=== PATIENT | female | born 1955 | race Caucasian/White ===

== ENCOUNTER 2020-05-12 11:01 | Outpatient (REF) | payer BC, SELFPAY ==
--- NOTE | ~2020-05-12 | MM_ITS ---
EXAMINATION: MM SCREENING DIGITAL BREAST TOMOSYNTHESIS, BILATERAL CLINICAL INFORMATION: Screening. Asymptomatic. The lifetime risk of breast cancer based on the Tyrer-Cuzick Model is 10%. COMPARISON: Mammography: 01/06/2019, 12/10/2018, 08/26/2014 TECHNIQUE: Digital breast tomosynthesis is performed in both the craniocaudal and mediolateral oblique views along with computer-aided detection (CAD). Synthesized 2D images are generated from the tomosynthesis. FINDINGS: There are scattered areas of fibroglandular density (ACR BI-RADS breast composition Category b). There are no significant masses, abnormal calcifications, or other abnormalities. Parenchymal pattern is similar to prior studies. The skin contours are smooth. No significant changes. MM/MM tomosynthesis screening BI IMPRESSION: No mammographic evidence of malignancy. ASSESSMENT: BI-RADS 1: Negative RECOMMENDATION: Routine annual mammography screening. This patient's information was entered into a reminder system with a target due date for their next mammogram.
== END 2020-05-12 11:02 | disposition home or self-care (01) ==
LOC: HO.MAMMO 11:01
PROVIDERS: Visit Provider Family Medicine
DX: Z12.31 Encounter for screening mammogram for malignant neoplasm of breast (principal)
CPT/HCPCS: 77063; 77067

== ENCOUNTER → 2020-07-29 12:28 | Outpatient (BNVA) | payer BC, SELFPAY | PROVIDERS: PCP Family Medicine; Visit Provider Physician Assistant ==

== ENCOUNTER 2020-08-25 09:01 | Outpatient (REF) | payer BC, SELFPAY ==
--- NOTE | ~2020-08-25 | US_ITS ---
EXAMINATION: US COMPLETE ABDOMEN WITH LIVER ELASTOGRAPHY CLINICAL INFORMATION: Pain COMPARISON: None. TECHNIQUE: Real-time imaging of the abdominal viscera. Noninvasive ultrasound liver fibrosis assessment is performed using Davion ElastPQ point quantification shear wave elastography (pSWE) with a C5-2 MHz transducer. Multiple elastography samples are obtained. FINDINGS: PANCREAS: Normal. . ABDOMINAL AORTA: The proximal, middle, and distal aortic segments are normal in caliber. INFERIOR VENA CAVA: Visualized portions are normal. LIVER: Normal. The liver demonstrates normal size, contour and echogenicity. No focal lesion or intrahepatic biliary duct dilatation. The right lobe measures 15 cm in length. The left lobe measures 11 cm in length. Portal flow is normal/hepatopedal Shear wave liver elastography median stiffness is 1.2 m/s (reference: normal median stiffness is 1.3 m/s or less). IQR/median stiffness to assess sampling precision is 0.15 (reference: good quality data set is IQR/median stiffness of 0.15 or less). GALLBLADDER: Normal. The gallbladder is physiologically distended without evidence of stones, sludge, polyps, wall thickening or pericholecystic fluid. COMMON BILE DUCT: Normal in caliber measuring 0.4 cm in diameter. RIGHT KIDNEY: Normal. No hydronephrosis. No renal calculi or focal parenchymal lesions. The kidney measures 9.5 cm in maximum dimension. LEFT KIDNEY: Normal. No hydronephrosis. No renal calculi or focal parenchymal lesions. The kidney measures 9.6 cm in maximum dimension. SPLEEN: Normal. The spleen measures 7.7 cm in maximum dimension. FREE FLUID: None. US/US abdomen comp w elastography IMPRESSION: 1. Impression: Unremarkable exam. 2. Liver elastography: Normal liver stiffness. No evidence of advanced chronic liver disease. REFERENCE: Society of Radiologists in Ultrasound Liver Stiffness Thresholds (2020): LIVER STIFFNESS THRESHOLDS: *Liver Stiffness equal or less than 1.3 m/s: High probability of being normal. *Liver Stiffness less than 1.7 m/s: In the absence of other known clinical signs, rules out compensated advanced chronic liver disease. *Liver Stiffness 1.7-2.1 m/s: Suggestive of compensated advanced chronic liver disease but need further test for confirmation. *Liver Stiffness over 2.1 m/s: Rules in compensated advanced chronic liver disease. *Liver Stiffness over 2.4 m/s: Suggestive of clinically significant portal hypertension. QUALITY OF DATA SET: *IQR/Median value equal or less than 0.15 implies a quality data set. *IQR/Median value over 0.15 implies a poor quality data set. SIGNIFICANT CHANGE FROM PRIOR EXAM: Significant change if liver stiffness measurement is 10% or greater from prior exam. OTHER CONSIDERATIONS: The stage of liver fibrosis may be overestimated in the setting of acute hepatitis, liver inflammation, elevated liver function tests, hepatic vascular congestion, obstructive cholestasis, non-fasting state, and infiltrative diseases such as amyloidosis and lymphoma. In some patients with NAFLD, the liver stiffness thresholds for compensated advanced chronic liver disease may be lower. In causes other than viral hepatitis and NAFLD, liver stiffness thresholds are not well established.
== END 2020-08-25 09:02 | disposition home or self-care (01) ==
LOC: HO.US 09:01
PROVIDERS: PCP Family Medicine; Visit Provider Physician Assistant
DX: R10.9 Unspecified abdominal pain (principal)
CPT/HCPCS: 76705; 76981

== ENCOUNTER 2020-10-29 08:33 | Day surgery (SDC) | payer BC, SELFPAY ==
[2020-10-25 11:20] VITALS: BMI 25.2
--- NOTE | 2020-10-28 10:20 | P.CONAN_ITS ---
Documented by User: Sarah Montiel NP 10/28/20 10:20 HPI - Anesthesia Eval Consult details Narrative: 65yo F for Colonoscopy PMFSH Active Problems Active Problems: All Active Problems (Updated 10/27/20 @ 09:23 by Elly Meeks, GIO) Essential hypertension (Acute) Immunization counseling (Acute) History of colon polyps (Acute) Rectal bleeding (Acute) Abdominal pain (Acute) Left foot pain (Acute) Lower extremity weakness (Acute) Past Medical History Medical History (Updated 10/29/20 @ 09:12 by Kerrie Lim MD) Anxiety and depression COPD (chronic obstructive pulmonary disease) H/O heartburn HTN (hypertension) Hx of thyroid disease Stye Wears dentures Family History Family History Mother No problems noted. Father No problems noted. Surgical History Surgical History History of orbit decompression History of palate surgery Hx of arthroscopic knee surgery Hx of colonoscopy Social History Social History Housing: House Alcohol intake: current Alcohol intake frequency: 0-2 drinks per day Patient Tobacco Use Status: Former Tobacco user e-Cigarette/Vaping Use: Currently Using Use of substances other than those prescribed or required for medical reasons: No Are you DNR?: No Advance Directives: No Advance Directives Information Provided: Yes Current occupational status: employed Current occupation: [employer] Allergies Allergy/AdvReac Type Severity Reaction Status Date / Time aspirin [ASA] Allergy Severe Swelling, Verified 10/26/20 16:45 facial TREE POLLEN Allergy Intermediate Nasal Uncoded 10/27/20 09:25 congestion Home Medications Medication Instructions Recorded Confirmed Last Taken Type levothyroxine 100 mcg tablet 100 mcg PO 5XW 10/27/20 10/27/20 Unknown History levothyroxine 150 mcg tablet 150 mcg PO 2XW 10/27/20 10/27/20 Unknown History Exam Exam Date and Time: October 28, 2020 1020 Height,Weight and Vital Signs: Height 5 ft 6 in Weight 70.76 kg Assessment and Plan Assessment Anesthesia Assessment: Chart Reviewed Documented by User: Kerrie Lim MD 10/29/20 09:13 [facility] Active Problems Active Problems: All Active Problems (Updated 10/27/20 @ 09:23 by Elly Meeks, RN) Essential hypertension (Acute) Immunization counseling (Acute) History of colon polyps (Acute) Rectal bleeding (Acute) Abdominal pain (Acute) Left foot pain (Acute) Lower extremity weakness (Acute) H/o hyperthyroidism, Grave's disease. Had radio-iodine. Now on levothyroxine Past Medical History Medical History (Updated 10/29/20 @ 09:12 by Kerrie Lim MD) Anxiety and depression COPD (chronic obstructive pulmonary disease) H/O heartburn HTN (hypertension) Hx of thyroid disease Stye Wears dentures Family History Family History Mother No problems noted. Father No problems noted. Family history of problems with anesthesia: No Surgical History Surgical History History of orbit decompression History of palate surgery Hx of arthroscopic knee surgery Hx of colonoscopy History of Problems with Anesthesia: No Social History Social History Housing: House Alcohol intake: current Alcohol intake frequency: 0-2 drinks per day Patient Tobacco Use Status: Former Tobacco user e-Cigarette/Vaping Use: Currently Using Use of substances other than those prescribed or required for medical reasons: No Are you DNR?: No Advance Directives: No Advance Directives Information Provided: Yes Current occupational status: employed Current occupation: [employer] Meds Allergies Allergy/AdvReac Type Severity Reaction Status Date / Time aspirin [ASA] Allergy Severe Swelling, Verified 10/26/20 16:45 facial TREE POLLEN Allergy Intermediate Nasal Uncoded 10/27/20 09:25 congestion Home Medications Medication Instructions Recorded Confirmed Last Taken Type levothyroxine 100 mcg tablet 100 mcg PO 5XW 10/27/20 10/27/20 Unknown History levothyroxine 150 mcg tablet 150 mcg PO 2XW 10/27/20 10/27/20 Unknown History Exam Height,Weight and Vital Signs: Height 5 ft 6 in Weight 70.76 kg Vital Signs Temp Pulse Resp BP Pulse Ox 10/29/20 08:51 97.3 F 76 16 145/61 H 97 Narrative Narrative: Proptosis Airway Mallampati Class: II TM Dist: >3cm Denture: Upper Partial: Lower Heart: RRR Lungs: CTAB Assessment and Plan Assessment Anesthesia Assessment: Anesthesia Plan Discussed Final Anesthetic Review Family History of Problems with Anesthesia: No History of Problems with Anesthesia: No NPO: Yes ASA Class: II Final Preanesthetic Review: No Changes in Pt Med Stat, Meds/Allgs Chart Reviewed, Consent Obtained/Reviewed and Anes Risks/Benef Reviewed Patient Risk: Low Procedure Risk: Low Assessment/Block/Sedation in SS: Assess/Block/Sedation-SS Anesthetic Plan Anesthetic Plan: MAC: Disposition: Standard PACU
--- NOTE | 2020-10-29 | ECG_ITS ---
Test Reason : preop Blood Pressure : / mmHG Vent. Rate : 064 BPM Atrial Rate : 064 BPM P-R Int : 148 ms QRS Dur : 142 ms QT Int : 430 ms P-R-T Axes : 064 012 091 degrees QTc Int : 443 ms Normal sinus rhythm Left bundle branch block Abnormal ECG When compared with ECG of 14-JUL-2004 09:07, Left bundle branch block is now Present Referred By: Kerrie Lim Electronically Signed By:ANAMARIA KELLY
[2020-10-29 08:51] VITALS: BP 145/61; PULSE 76; RESP 16; TEMP 36.3; O2SAT 97
--- NOTE | 2020-10-29 09:08 | MHC.SHP ---
Pre-Procedural Eval Section A Date of Service: 10/29/20 The patient is an INPATIENT: No The History & Physical has been completed within 30 days and I have reviewed it.: No Section B Chief Complaint: screening, hx of colon polyp, Rectal Bleeding Details of Present Illness: Colon cancer screening, history colon polyps Relevant Family History (Specify if Yes): No Relevant Social History: Tobacco Use (Former smoker) Present Medications: see Short Stay Collaborative assessment Medical History: Significant History (Hypertension, COPD, anxiety and depression, history of thyroid disease) History of Previous Operations: Relevant previous surgery/procedure and date(s) (History of palate surgery, history of colonoscopy) Allergies: Allergies Allergy/AdvReac Type Severity Reaction Status Date / Time aspirin [ASA] Allergy Severe Swelling, Verified 10/26/20 16:45 facial TREE POLLEN Allergy Intermediate Nasal Uncoded 10/27/20 09:25 congestion Review of Systems Sugical H&P ROS: Negative: Constitution, Cardiovascular and Respiratory and Yes, Specify: Gastrointestinal (loose stools, rectal bleeding) Exam Surgical H&P Exam: Normal: HEENT, Normal: Heart, Normal: Lungs, Normal: Extremities and Normal: Abdomen Plan Diagnosis/Plan: Unchanged I have reviewed the history and physical and performed a pertinent physical examination on my patient. No changes have occurred unless specified. EKG showed a new left bundle branch block - I will ask PCP to refer to Cardiology.
--- NOTE | 2020-10-29 09:12 | W.PM.OPN ---
Operative Note Operative Note Date of Service: 10/29/20 Narrative: Pre-op diagnosis:?Colon cancer screening, history of colon polyps, loose stools, rectal bleeding Post-op diagnosis:?other (Colon polyps, diverticulosis, hemorrhoids) Procedure:? COLONOSCOPY TILL CECUM WITH BIOPSIES AND SNARE POLYPECTOMY Consent: Indications for the procedure and potential complications of bleeding, perforation, reaction to medications and missed diagnosis were discussed with the patient and informed consent was obtained. Instrument: Olympus PCF H 190 L variable stiffness pediatric colonoscope Monitoring: Vital signs and clinical assessment, intermittent blood pressure monitoring, continuous EKG monitoring, Pulse oximetry and Carbon Dioxide monitoring were done throughout the procedure. Colon withdrawl time was 25 minutes. Procedure: The patient was placed in the left lateral decubitis position and pre-procedure medications were administered. After a digital rectal examination of the ano-rectum, the video colonoscope was inserted into the rectum and advanced through the colon to the cecum. The colonoscope was slowly withdrawn in a retrograde panoramic fashion and the colon mucosa was carefully examined including a retroflexed view of the rectum. Findings and interventions are described below. Procedure Difficulty: LLQ pressure applied to intubate the cecum Findings: Terminal Ileum: Not evaluated Cecum:? Normal Ascending Colon:? Normal Transverse Colon:? Normal Descending Colon:? Moderate diverticulosis Sigmoid Colon:? A 10-12 mm sessile polyp removed with a hot snare Severe diverticulosis with luminal narrowing. Rectum:? A 12-15 mm sessile polyp at 10 cms removed with a hot snare.? A 12 mm sessile polyp at the anal verge removed with a hot snare. Ano-rectum:? Moderate internal hemorrhoids Colon preparation:? Good Impression and Post Procedure Diagnosis: Colonoscopy Findings: Three medium sized polyps removed Moderate to severe diverticulosis seen in the left colon Moderate hemorrhoids on retroflexed exam. Plan: Await pathology results Patient has an appointment on 11/11/20 in the GI Clinic with KIM Ashton. Repeat Colonoscopy interval based on path results - in 3 years if polyps are adenomatous and 10 years if polyps are hyperplastic. Above findings were reviewed with the patient and colon polyps and diverticulosis handouts were given in the discharge area Surgeon:?Verona Cullen MD Anesthesia:?MAC (Santosh Hoyos CRNA) Was an Crop Adjuster used for this Procedure?:?Yes Crop Adjuster:?Blossom Fontana Estimated blood loss (mL):?0 Pathology:?other (A. random colon biopsies? B. sigmoid polyp? C. rectal polyps) Condition:?stable Disposition:?PACU
[2020-10-29] MEDS: Sodium Phosphate,Mono-Dibasic 133 ML ENEMA PR (09:14)
[2020-10-29] MEDS: Lactated Ringers 1,000 ML 100 ML IVCONT (09:18)
[2020-10-29 10:30] VITALS: BP 136/63; PULSE 64; RESP 19; TEMP 36.1; O2SAT 100
[2020-10-29 10:46] VITALS: BP 137/50; PULSE 57; RESP 16; TEMP 36.1; O2SAT 100
== END 2020-10-29 11:20 | disposition home or self-care (01) ==
PROVIDERS: PCP Family Medicine; Visit Provider Internal Medicine Gastroenterology
PROC: 0DJD8ZZ Inspection of Lower Intestinal Tract, Via Natural or Artificial Opening Endoscopic (ICD-10-PCS; CPT 45378; principal; 2020-10-29 09:40)
DX: Z12.11 Encounter for screening for malignant neoplasm of colon (principal); K62.5 Hemorrhage of anus and rectum; D12.5 Benign neoplasm of sigmoid colon; D12.8 Benign neoplasm of rectum; K57.30 Diverticulosis of large intestine without perforation or abscess without bleeding; K64.8 Other hemorrhoids; Z86.010 Personal history of colon polyps; I10 Essential (primary) hypertension; J44.9 Chronic obstructive pulmonary disease, unspecified; Z79.899 Other long term (current) drug therapy
CPT/HCPCS: 45385; 88305; 93005

== ENCOUNTER 2021-01-01 21:14 | Emergency (ER) | payer BC, SELFPAY ==
--- NOTE | ~2021-01-01 | CT_ITS ---
EXAMINATION: CT HEAD WITHOUT CONTRAST CT CERVICAL SPINE WITHOUT CONTRAST CLINICAL INFORMATION: Fall. COMPARISON: None TECHNIQUE: Contiguous axial imaging was performed from the skull base to vertex without intravenous administration of contrast. Contiguous axial CT images of the cervical spine were obtained without contrast. Sagittal and coronal reformats were provided and reviewed. This CT examination was performed using dose optimization techniques as appropriate, variously including the following: *Automated exposure control *Adjustment of mA and/or kV according to patient size (this includes techniques or standardized protocols for targeted exams where dose is matched to indication/reason for exam; i.e. extremities or head). *Use of iterative reconstruction technique. DLP: 951 mGy-cm FINDINGS: HEAD: There is no evidence of acute intracranial hemorrhage or territorial infarction. No abnormal mass effect or midline shift is seen. [id number] matter differentiation is well preserved. No extra-axial fluid collections are identified. The ventricles are normal in size. There is no abnormal attenuation within the brain parenchyma. The osseous structures and soft tissues are normal. The mastoid air cells and visualized portions of the paranasal sinuses are well aerated. CERVICAL SPINE: Reversal of the normal cervical lordosis, which may be positional or related to muscle spasm. Chronic grade 1 anterolisthesis of C3 on C4 and C4 on C5. No acute fracture or subluxation. No loss of vertebral body height. Multilevel loss of intervertebral disc height with degenerative endplate changes, most prominent at C5-C6. Multilevel bilateral facet arthropathy. No lytic or blastic osseous lesion. Unremarkable prevertebral soft tissues. No abnormal soft tissue mass or fluid collection. Thyroid is atrophic. Visualized lung apices are clear. Multilevel moderate bilateral neural foraminal stenosis. CT/CT cervical spine wo con IMPRESSION: HEAD: No acute intracranial hemorrhage or mass effect. CERVICAL SPINE: No acute fracture or subluxation. Reversal of the normal cervical lordosis, which may be positional or related to muscular spasm. Chronic grade 1 anterolisthesis of C3 on C4 and C4 on C5. Multilevel degenerative disc disease and bilateral facet arthropathy with multilevel moderate bilateral neural foraminal stenosis.
[2021-01-01 21:21] VITALS: BP 118/56; PULSE 83; RESP 16; TEMP 36.6; O2SAT 96
[2021-01-01 21:22] VITALS: BP 118/56; BP 120/62; PULSE 79; PULSE 88; TEMP 36.7; O2SAT 98; BMI 26.3
--- NOTE | 2021-01-01 21:28 | ED_ITS ---
HPI - Fall General Chief Complaint: Fall Stated Complaint: etoh and fall Time Seen by Provider: 01/01/21 21:26 Source: patient Mode of arrival: ambulatory Limitations: no limitations History of Present Illness HPI Narrative: Patient alcoholic drinks wine , lives with her brother had few drinks earlier today again to get up from the couch and fell her brother was in the shower nobody witnessed the fall he found her on the floor no significant injuries patient alert at the time of any sort the patient not any blood thinner significant injuries noticed patient has a baseline denying any complaints Related Data Home Medications Medication Instructions Recorded Confirmed levothyroxine 100 mcg tablet 100 mcg PO 5XW 10/27/20 01/01/21 levothyroxine 150 mcg tablet 150 mcg PO 2XW 10/27/20 10/27/20 aspirin 81 mg 01/01/21 Previous Rx's Medication Instructions Recorded albuterol sulfate 90 mcg/actuation 2 puff INHALATION Q4-6H PRN 30 03/03/20 aerosol inhaler (ProAir HFA) Days #6.7 g amlodipine 5 mg tablet 5 mg PO DAILY #90 tab 09/15/20 lisinopril 40 mg tablet 40 mg PO DAILY 90 Days #90 tab 11/16/20 sertraline 100 mg tablet 100 mg PO DAILY 90 Days #90 tab 11/30/20 Allergies Allergy/AdvReac Type Severity Reaction Status Date / Time aspirin [ASA] Allergy Severe Swelling, Verified 11/30/20 10:52 facial TREE POLLEN Allergy Intermediate Nasal Uncoded 10/27/20 09:25 congestion Review of Systems Review of Systems: Yes all other systems are reviewed and are negative PMFSH Past Medical History Medical History Anxiety and depression COPD (chronic obstructive pulmonary disease) H/O heartburn HTN (hypertension) Hx of thyroid disease Stye Wears dentures Surgical History History of orbit decompression History of palate surgery Hx of arthroscopic knee surgery Hx of colonoscopy Family History Family History Mother No problems noted. Father No problems noted. Social History Social History Housing: House Alcohol intake: current Alcohol intake frequency: 3 or more drinks per day Alcohol type: wine Patient Tobacco Use Status: Former Tobacco user e-Cigarette/Vaping Use: Currently Using Use of substances other than those prescribed or required for medical reasons: No Advance Directives: No Advance Directives Information Provided: No Current occupational status: employed Current occupation: [employer] Physical Exam Vital Signs: Vital Signs: Last Vital Signs Temp 97.5 F 01/02/21 00:08 Pulse 68 01/02/21 00:08 Resp 16 01/02/21 00:08 BP 117/49 L 01/02/21 00:08 Pulse Ox 97 01/02/21 00:08 Body Mass Index 26.3 Appearance: Alert. Oriented X3. No acute distress. Intoxicated Eyes: PERRLA, No Nystagmus HEENT: Pharynx normal. Oral Mucosa moist, atraumatic normocephalic EAC normal tympanic membrane intact Neck: Normal inspection. Neck supple. No midline tenderness , cervical collar in place CVS: Normal heart rate and rhythm. Pulses normal. Respiratory: No respiratory distress. Equal air entry bilateral, Abdomen: Soft and nontender. Bowel sounds are present, no mass palpable, no CVA tenderness Skin: Skin warm and dry. Normal skin color. Normal skin turgor. Extremities: No lower extremity edema. No calf tenderness Neuro: Oriented X 3. No motor deficit. No sensory deficit.No cerebellar signs , cranial nerves II-XII intact MDM - Fall MDM Narrative Medical decision making narrative: Patient alcoholic status post mechanical fall CT scan had and C-spine negative for any acute, no other injuries, labs are s table patient refusing to go to detox family aware will discharge patient home Lab Data Attestation: I reviewed the patient's lab results. Result diagrams: 01/01/21 22:11 01/01/21 22:11 Labs: Lab Results 01/01/21 01/01/21 01/01/21 Range/Units 22:11 22:11 22:11 WBC 6.5 (4.8-10.8) X10*3/uL RBC 3.55 L (4.20-5.50) X10*6/uL Hgb 11.0 L (12.0-16.0) g/dl Hct 33.5 L (37.0-47.0) % MCV 94.4 (80.0-98.0) fL MCH 31.0 (27.0-33.0) pg MCHC 32.8 (31.0-35.0) g/dl RDW 14.8 (11.0-16.0) % Plt Count 370 (160-400) X10*3/uL MPV 8.7 L (9.4-12.3) fL Immature Gran % (Auto) 0.3 (0.0-0.4) % Neut % (Auto) 53.5 (45-73) % Lymph % (Auto) 33.7 (20-40) % Sevier % (Auto) 9.4 (2-11) % Eos % (Auto) 1.9 (0-4) % Baso % (Auto) 1.2 (0-2) % Lymph # (Auto) 2.2 (1.2-4.9) X10*3/uL Sevier # (Auto) 0.6 (0.1-1.2) X10*3/uL Eos # (Auto) 0.1 (0.0-0.4) X10*3/uL Baso # (Auto) 0.1 (0.0-0.2) X10*3/uL Abs Immat Gran (auto) 0.02 (0.00-0.03) X10*3/uL Absolute Neuts (auto) 3.5 (2.0-8.3) x10*3/uL Absolute Nucleated RBC 0.000 (0.0-0.012) X10*3/uL Nucleated RBC % (auto) 0.0 (0.0-0.2) /100WBC Sodium 138 (135-145) mmol/L Potassium 3.8 (3.3-5.1) mmol/L Chloride 108 (96-108) mmol/L Carbon Dioxide 20 L (22-29) mmol/L Anion Gap 14 (12-20) BUN 13 (9-16) mg/dL Creatinine 0.83 (0.5-1.4) mg/dL Estim Creat Clear Calc 68.5 Estimated GFR > 60 Random Glucose 100 (60-115) mg/dL Calcium 8.9 (8.4-10.2) mg/dL Magnesium 1.9 (1.6-2.6) mg/dL Total Bilirubin 0.2 (0.0-1.0) mg/dL AST 24 (5-31) U/L ALT 12 (0-31) U/L Alkaline Phosphatase 105 (39-117) U/L Total Protein 6.5 (6.5-8.0) g/dL Albumin 3.7 (3.5-5.0) g/dL Lipase 60 (8-78) U/L Ethyl Alcohol 307 H* mg/dL ECG Data Attestation: I personally reviewed and interpreted this ECG as follows: Interpretation: Normal sinus rhythm with heart rate 69 beats per minute left bundle-branch block no acute ST T wave changes no acute ischemia Discharge Plan Discharge Clinical Impression: Alcohol abuse Fall Qualifiers: Encounter type: initial encounter Qualified Code(s): W19.XXXA - Unspecified fall, initial encounter Patient Disposition: Home, Self-Care Instructions: Abuse of Alcohol (ED), Fall Prevention (ED) Additional Instructions: Stop drinking alcohol Follow-up with detox Prescriptions: No Action albuterol sulfate [ProAir HFA] 90 mcg/actuation HFA aerosol inhaler 2 puff inhalation Q4-6H PRN (Reason: shortness of breath or wheezing) 30 Days Qty: 6.7 RF: 5 amlodipine 5 mg tablet 5 mg PO DAILY Qty: 90 RF: 0 lisinopril 40 mg tablet 40 mg PO DAILY 90 Days Qty: 90 RF: 3 levothyroxine 150 mcg Tablet 150 mcg PO 2XW RF: 0 levothyroxine 100 mcg tablet 100 mcg PO 5XW RF: 0 aspirin tablet 81 mg RF: 0 sertraline 100 mg tablet 100 mg PO DAILY 90 Days Qty: 90 RF: 6
--- NOTE | 2021-01-01 21:43 | PC.NURSE ---
Pernell (brother) [place] phone number (cell [phone] home
[2021-01-01] MEDS: Ondansetron ODT 4 MG TAB.RAPDIS TRANSLINGU (21:51)
[2021-01-01 22:16] LABS: Basophils Absolute Auto 0.1 X10*3/uL (0.0-0.2); Basophils Percent Auto 1.2 % (0-2); Eosinophils Absolute Auto 0.1 X10*3/uL (0.0-0.4); Eosinophils Percent Auto 1.9 % (0-4); Hematocrit 33.5 % (37.0-47.0); Imm Gran Abs Auto 0.02 X10*3/uL (0.00-0.03); Imm Gran Pct Auto 0.3 % (0.0-0.4); Lymphocytes Absolute Auto 2.2 X10*3/uL (1.2-4.9); Lymphocytes Percent Auto 33.7 % (20-40); MANUAL DIFF FLAG NO; Mean Corpuscular HGB Conc 32.8 g/dl (31.0-35.0); Mean Corpuscular Volume 94.4 fL (80.0-98.0); Mean Platelet Volume 8.7 fL (9.4-12.3); Monocytes Absolute Auto 0.6 X10*3/uL (0.1-1.2); Monocytes Percent Auto 9.4 % (2-11); Neutrophils Absolute Auto 3.5 x10*3/uL (2.0-8.3); Neutrophils Percent Auto 53.5 % (45-73); Platelet Count 370 X10*3/uL (160-400); Red Blood Count 3.55 X10*6/uL (4.20-5.50); Red Cell Distribution Width 14.8 % (11.0-16.0); White Blood Count 6.5 X10*3/uL (4.8-10.8)
[2021-01-01 22:17] VITALS: BP 123/51; PULSE 75; O2SAT 91
[2021-01-01] MEDS: 0.9 % Sodium Chloride 1,000 ML 999 ML IVCONT (22:24)
[2021-01-01 22:36] LABS: Ethanol 307 mg/dL
[2021-01-01 22:43] LABS: Alanine Aminotransferase 12 U/L (0-31); Albumin Level 3.7 g/dL (3.5-5.0); Alkaline Phosphatase 105 U/L (39-117); Anion Gap 14 (12-20); Aspartate Amino Transferase 24 U/L (5-31); Bilirubin Total 0.2 mg/dL (0.0-1.0); Blood Urea Nitrogen 13 mg/dL (9-16); Calcium 8.9 mg/dL (8.4-10.2); Carbon Dioxide 20 mmol/L (22-29); Chloride 108 mmol/L (96-108); Creatinine Clr Calc Pharmacy 68.5; Estimated Glomerular Filt Rate > 60; Glucose Random 100 mg/dL (60-115); Lipase 60 U/L (8-78); Magnesium 1.9 mg/dL (1.6-2.6); Potassium 3.8 mmol/L (3.3-5.1); Sodium 138 mmol/L (135-145); Total Protein 6.5 g/dL (6.5-8.0)
[2021-01-01] MEDS: Famotidine/PF 20 MG/2 ML VIAL IVPUSH (23:09)
[2021-01-02 00:08] VITALS: BP 117/49; PULSE 68; RESP 16; TEMP 36.4; O2SAT 97
--- NOTE | 2021-01-02 00:17 | ECG_ITS ---
Test Reason : FALL Blood Pressure : / mmHG Vent. Rate : 069 BPM Atrial Rate : 069 BPM P-R Int : 150 ms QRS Dur : 138 ms QT Int : 480 ms P-R-T Axes : 078 035 086 degrees QTc Int : 514 ms Normal sinus rhythm Left bundle branch block Abnormal ECG When compared with ECG of 29-OCT-2020 09:29, QT has lengthened Referred By: Kelvin Perez Electronically Signed By:VIRA WAYNE MD
--- NOTE | 2021-01-02 00:42 | PC.NURSE ---
This underwriter attempted to contact the patient's brother to pick patient up because she is being discharged. No answer to both numbers. Per MD, patient's brother wants her to go to rehab and patient refuses. Patient to be sent home via ambulance.
[2021-01-02 04:28] VITALS: BP 122/53; PULSE 54; RESP 16; O2SAT 99
== END 2021-01-02 06:19 | disposition home or self-care (01) ==
PROVIDERS: Emergency Provider Internal Medicine
DX: F10.10 Alcohol abuse, uncomplicated (principal); Y90.8 Blood alcohol level of 240 mg/100 ml or more; F41.9 Anxiety disorder, unspecified; F32.A Depression, unspecified; I10 Essential (primary) hypertension; M50.30 Other cervical disc degeneration, unspecified cervical region; M47.812 Spondylosis without myelopathy or radiculopathy, cervical region; Z91.81 History of falling; Z79.899 Other long term (current) drug therapy
CPT/HCPCS: 36415; 70450; 72125; 80053; 82077; 83690; 83735; 85025; 93005; 96361; 96374; 99284

== ENCOUNTER → 2021-01-04 09:08 | Outpatient (BNVA) | payer BC, SELFPAY | PROVIDERS: PCP Family Medicine; Referring Provider Family Medicine; Visit Provider Internal Medicine Cardiovascular Disease ==

== ENCOUNTER → 2021-01-07 08:03 | Outpatient (REF) | payer BC, SELFPAY ==
--- NOTE | ~2021-01-07 | NM_ITS ---
Lexiscan Myocardial perfusion study Indication: Left bundle branch block, assess for coronary disease, ischemia Technique: The patient was brought in for a Lexiscan perfusion study on 01/07/2021 and was injected 0.4 mg of Lexiscan intravenously. Within a minute of this injection 25 mCi of sestamibi was given intravenously. Images were obtained using the SPECT gamma camera interlaced with the gating device. Images were obtained in supine position. Resting perfusion study was performed on 01/12/2021. Patient was administered 25 mCi of sestamibi intravenously at rest. Images were then obtained in supine position. Total DLP 81mGy-cm. Images were processed with the software and compared side to side in short axis, horizontal long axis and vertical long axis views. Findings: Raw acquisition was reviewed. The stress perfusion study showed no significant perfusion abnormality. With CT attenuation correction, there is globally reduced uptake which is most likely all technical. The gated study shows slightly diminished LV systolic function with calculated LVEF of 48%. LV cavity is normal in size. The gated study shows normal wall thickening and contraction of segments. Resting study shows no significant perfusion abnormality. With CT attenuation correction, there is globally reduced uptake most likely technical. Gating at rest reveals normal wall motion with ejection fraction at 56%. The findings are consistent with no definite reversible or fixed perfusion defects. NM/NM kate perf SPECT rest & str Impression: 1. Myocardial perfusion imaging study shows likely normal perfusion. 2. Gated LVEF is 48% during stress and 56% during rest. Correlate with echocardiogram. 3. Transient ischemic dilatation not present. EKG component of the test reported separately.
--- NOTE | 2021-01-07 08:07 | CA_ITS ---
Acquisition Time: 2021-01-07 08:07:10 Total Exercise Time: 00:02:00 Test Indications: Abnormal ECG Medications: AMLODIPINE ALBUTEROL LEVOTHYROXINE LISINOPRIL SERTRALINE Protocol: LEXISCAN Max HR: 102 BPM 66% of Pred: 154 BPM Max BP: 132/066 mmHG Max Work Load: 1.0 METS Pharmacological stress test with Lexiscan injection, while sitting, without anginal symptoms, with LBBB when heart rate over 83 b/min, with normotensive response to injection, with nondiagnostic EKG for ischemia. In recovery she reported feeling weakness and was treated with Aminophylline 75mg IVP to reverse Lexiscan with resolution of symptom. She was recovered for 9 min, heart rate went down to 72 b/min and LBBB resolved. Nuclear images pending. Test reviewed with Dr Braun. Referred By: Bobby Magaña Overread By: BLAKE BELL
== END ==
LOC: HO.CARD 08:03
PROVIDERS: PCP Family Medicine; Visit Provider Internal Medicine Cardiovascular Disease
DX: I44.7 Left bundle-branch block, unspecified (principal)
CPT/HCPCS: 78452; 93017; A9500; J0280; J2785

== ENCOUNTER 2021-01-12 11:40 | Outpatient (REF) | payer BC, SELFPAY ==
--- NOTE | ~2021-01-12 | XR_ITS ---
EXAMINATION: XR KNEE, LEFT CLINICAL INFORMATION: Left knee pain COMPARISON: None TECHNIQUE: Four views of the left knee. FINDINGS: Bone density is diffusely decreased from osteopenia or osteoporosis. No focal lytic lesion. Alignment is normal at the knee. No fracture or subluxation. There appears to be a trace amount of fluid in the suprapatellar compartment. No significant joint effusion. There is mild narrowing of medial tibiofemoral joint space with marginal osteophyte formation. XR/XR knee LT 3V IMPRESSION: * No acute fracture or malalignment at the left knee. 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 * Bone density is diffusely decreased (i.e., osteopenia or osteoporosis).
== END 2021-01-12 11:41 | disposition home or self-care (01) ==
LOC: HO.XRAY 11:40
PROVIDERS: PCP Family Medicine; Visit Provider Hospitalist
DX: M25.562 Pain in left knee (principal); Z91.81 History of falling
CPT/HCPCS: 73562

== ENCOUNTER 2021-02-03 14:58 | Outpatient (REF) | payer BC, SELFPAY ==
--- NOTE | ~2021-02-03 | MM_ITS ---
EXAMINATION: BONE DENSITOMETRY CLINICAL INDICATION: Abnormal findings on diagnostic imaging. COMPARISON: Baseline BD dated 05/28/2006. TECHNIQUE: Using a Piazza DXA System (software version: 13.1) manufactured by [employer], dual-energy x-ray absorptiometry was performed of the lumbar spine and left hip. The images are of good technical quality. Summary results are attached. FINDINGS: AP SPINE L1-L4: Current: BMD 0.985 g/cm2, Z-score -0.3, T-score -1.6, osteopenia, 8.0% increase from baseline (<5% change is not significant). Baseline: BMD 0.912 g/cm2. LEFT FEMUR, NECK: Current: BMD 0.695 g/cm2, Z-score -1.1, T-score -2.5, osteoporosis. Baseline: BMD 0.858 g/cm2. LEFT FEMUR, TOTAL: Current: BMD 0.718 g/cm2, Z-score -1.3, T-score -2.3, osteopenia, 17.3% decrease from baseline (<5% change is not significant). Baseline: BMD 0.868 g/cm2. IDENTIFIED RISK FACTORS: Menopause, alcohol (3 or more units per day), hyperthyroid, low calcium intake, rheumatoid arthritis, secondary osteoporosis. HISTORY OF FRACTURE: None listed. MEDICATIONS: Vitamin D. MM/XR DEXA axial skeleton IMPRESSION: 1. DIAGNOSIS: Osteoporosis based on the lowest T-score value of -2.5 in the femoral neck applying World Health Organization criteria. 2. 10-YEAR FRACTURE RISK PREDICTION, FRAX: According to the guidelines, FRAX calculation should only be performed on patients in the osteopenia bone density category. 3. Treatment Recommendations: NOF guidelines recommend consideration for treatment in postmenopausal women and men age 50 and older presenting with the following: -A hip or vertebral (clinical or morphometric) fracture. -T-score less than or equal to -2.5 at the femoral neck or spine after appropriate evaluation to exclude secondary causes. -Low bone mass at the hip or spine and a 10-year fracture probability by FRAX of greater than or equal to 3% for hip fracture or greater than or equal to 20% for major osteoporotic fracture based on the [place] adapted WHO algorithm. 4. Other Recommendations: All treatment decisions require clinical judgment and consideration of individual patient factors, including patient preferences, comorbidities, previous drug use, risk factors not captured in the FRAX model (e.g. frailty, falls, vitamin D deficiency, increased bone turnover, interval significant decline in bone density) and possible under or overestimation of fracture risk by FRAX. Additional medical evaluation for secondary cause of low bone mineral density may be appropriate. FUTURE SCAN RECOMMENDATION: People with diagnosed cases of osteoporosis or at high risk for fracture should have regular bone mineral density tests. For patients eligible for Medicare, routine testing is allowed once every 2 years. The testing frequency can be increased to one year for patients who have rapidly progressing disease, those who are receiving or discontinuing medical therapy to restore bone mass, or have additional risk factors.
== END 2021-02-03 14:59 | disposition home or self-care (01) ==
LOC: HO.MAMMO 14:58
PROVIDERS: Visit Provider Hospitalist
DX: Z13.820 Encounter for screening for osteoporosis (principal); M81.0 Age-related osteoporosis without current pathological fracture; Z78.0 Asymptomatic menopausal state; Z79.899 Other long term (current) drug therapy; M05.9 Rheumatoid arthritis with rheumatoid factor, unspecified; R93.89 Abnormal findings on diagnostic imaging of other specified body structures
CPT/HCPCS: 77080

== ENCOUNTER → 2021-02-15 08:02 | Outpatient (BNVA) | payer BC, SELFPAY | PROVIDERS: PCP Family Medicine; Referring Provider Family Medicine; Visit Provider Nurse Practitioner ==

== ENCOUNTER → 2021-02-21 11:27 | Outpatient (REF) | payer BC, SELFPAY ==
--- NOTE | 2021-02-21 11:31 | CA_ITS ---
Transthoracic Echocardiogram Patient (Last, First, Middle): Marzena Fraser, Gender: Female Date of : 1955 Age: 65 Procedure Date: 02/21/2021 Procedure Type: Transthoracic Echocardiogram Location: OP Height: 167.64 cm Weight: 70.31 kg BSA: 1.79 m2 Heart Rate: bpm BP: 124 / 60 mmHg Feeder Catcher Tobacco: ANGELA Referring MD: Bobby Magaña MD Symptoms: I44.7 - Left bundle-branch block, unspecified Study Quality: Fair ECG Rhythm: Sinus Conclusions: - The left ventricular systolic function is normal. The calculated ejection fraction is 60% by biplane method. - No obvious valvular pathology seen on this study. Findings Left Ventricle Normal left ventricular cavity size. There is normal left ventricular wall thickness. The left ventricular systolic function is normal. The calculated ejection fraction is 60% by biplane method. There is no evidence of regional wall motion abnormalities. E/E prime ratio is <8, consistent with normal filling pressures. Evidence suggests grade I (mild) diastolic dysfunction. Right Ventricle Normal right ventricular cavity size. There is normal right ventricular systolic function. TAPSE seems falsely low, but annular doppler velocities in normal range. Atria Both atria are normal in size. Aortic Valve There is a normal trileaflet aortic valve. There is no aortic valve stenosis. The mean gradient is 4 mmHg. There is no aortic valve regurgitation. Mitral Valve There is mild anterior mitral leaflet thickening. There is no mitral valve stenosis. Trace to mild mitral regurgitation. Pulmonic Valve The pulmonic valve was not well visualized. Tricuspid Valve Normal tricuspid valve structure. There is trace tricuspid valve regurgitation. The pulmonary artery systolic pressure is normal. Great Vessels The aortic annulus, sinuses of valsalva, and asc aorta are normal in size. Venous The inferior vena cava is normal in size and collapses greater than 50% with inspiration. Pericardium/Pleural There is no evidence of pericardial effusion. Prior Study Comparison No prior study available for comparison. Recommendations, Care & Conclusions No obvious valvular pathology seen on this study. Measurements 2D Linear Measurements IVSd: 1.03 0.6-0.9/0.6-1.0 cm LVIDd: 5.12 3.9-5.3/4.2-5.9 cm LVIDd Index: 2.86 2.4-3.2/2.2-3.1 cm/m2 LVIDs: 3.52 2.0-3.6 cm LVPWd: 0.81 0.7-1.1 cm Ao Root: 3.30 2.1-3.5 cm LA Diam: 3.90 2.7-3.8/3.0-4.0 cm LAIDs Index: 2.18 1.5-2.3 cm/m2 LV Mass: 211.05 67-162/88-224 g LV Mass Index: 117.91 43-95/49-115 g/m2 LVOT Diam: 2.10 3.0+(-)1.3 cm 2D Systolic Function EF 4C: 58.30 >55% EF 2C: 60.30 >55% EF BiP: 59.60 >55% Mitral Valve MV Pk E: 0.59 MV PK A: 0.77 MV Decel Time: 249.00 E/A: 0.80 E'Lateral: 6.42 E'Medial: 5.55 E/E' Med: 10.70 E/E' Lat: 9.30 PHT: 73.00 MVA PHT: 3.01 Decel Henderson: 2.38 Aortic Valve AoV Pk Simon: 1.27 AoV Mn Simon: 0.90 AoV VTI: 0.29 AoV Pk Grad: 6.00 Aov Mn Grad: 4.00 JIGAR Cont.VTI: 2.78 LVOT LVOT Pk Simon: 0.93 LVOT Mn Simon: 0.66 LVOT VTI: 0.23 LVOT Pk Grad: 3.00 LVOT Mn Grad: 2.00 LVOT Diam: 2.10 LVOT Area: 3.46 Diastolic Function MV Pk E: 0.59 MV Pk A: 0.77 E/A: 0.80 E'Medial: 5.55 E/E' Med: 10.70 E' Laterial: 6.42 E/E' Lat: 9.30 Right Ventricle TAPSE (mm): 16.50 TVS' Simon: 12.60 Tricuspid Valve TR Pk Simon: 2.33 TR Pk Grad: 22.00 RA Press: 3.00 RVSP: 25.00 Great Vessels Aorta Ao Root-2D: 3.30 2.0-3.7 cm Ao Asc: 2.80 2.1-3.4 cm Ao Arch: 3.00 Updated in Other Vendor System with Status of Final Zak Braun MD electronically signed on 02/21/2021 1:06:41 PM with status of Final
== END ==
LOC: HO.CARD 11:27
PROVIDERS: Visit Provider Internal Medicine Cardiovascular Disease
DX: I44.7 Left bundle-branch block, unspecified (principal)
CPT/HCPCS: 93306

== ENCOUNTER → 2021-02-22 14:39 | Outpatient (BNVA) | payer BC, SELFPAY | PROVIDERS: PCP Family Medicine; Referring Provider Family Medicine; Visit Provider Nurse Practitioner Family ==

== ENCOUNTER 2021-03-14 12:22 | Outpatient (REF) | payer MEDICARE, BC, SELFPAY ==
[2021-03-14 13:19] LABS: MANUAL DIFF FLAG NO
[2021-03-14 13:21] LABS: Basophils Absolute Auto 0.1 X10*3/uL (0.0-0.2); Basophils Percent Auto 1.5 % (0-2); Eosinophils Absolute Auto 0.1 X10*3/uL (0.0-0.4); Eosinophils Percent Auto 1.9 % (0-4); Hemoglobin 11.1 g/dl (12.0-16.0); Imm Gran Abs Auto 0.01 X10*3/uL (0.00-0.03); Imm Gran Pct Auto 0.1 % (0.0-0.4); Lymphocytes Absolute Auto 1.6 X10*3/uL (1.2-4.9); Lymphocytes Percent Auto 23.1 % (20-40); Mean Corpuscular HGB Conc 32.6 g/dl (31.0-35.0); Mean Corpuscular Hemoglobin 29.1 pg (27.0-33.0); Mean Corpuscular Volume 89.2 fL (80.0-98.0); Mean Platelet Volume 10.1 fL (9.4-12.3); Monocytes Absolute Auto 0.6 X10*3/uL (0.1-1.2); Monocytes Percent Auto 8.5 % (2-11); Neutrophils Absolute Auto 4.4 x10*3/uL (2.0-8.3); Neutrophils Percent Auto 64.9 % (45-73); Platelet Count 382 X10*3/uL (160-400); Red Blood Count 3.81 X10*6/uL (4.20-5.50); White Blood Count 6.7 X10*3/uL (4.8-10.8)
== END 2021-03-14 12:23 | disposition home or self-care (01) ==
LOC: HO.WFDLDS 12:22
PROVIDERS: Visit Provider Family Medicine
DX: Z00.00 Encounter for general adult medical examination without abnormal findings (principal)
CPT/HCPCS: 36415; 85025

== ENCOUNTER 2021-04-04 09:01 | Outpatient (REF) | payer MEDICARE, BC, SELFPAY ==
[2021-04-04 11:29] LABS: Appearance Urine CLEAR; Color Urine YELLOW; Glucose Urine UA NEG (NEG); Leukocyte Esterase Urine NEG (NEG); Nitrite Urine NEG (NEG); PH 5.5 (5.0-8.0); Specific Gravity - Urine 1.025 (1.005-1.025); Urine Blood NEG (NEG); Urine Ketones NEG (NEG); Urine Protein NEG (NEG-TRACE)
[2021-04-04 11:46] LABS: Estimated Average Glucose 123 mg/dL; Hemoglobin A1c % 5.9 %
[2021-04-04 12:07] LABS: Creatinine Urine 136.07 mg/dL; Microalbum/Creatinine Ratio Ur 7.3 ug/mg cr
[2021-04-04 12:17] LABS: TSH reflex Free T4 8.12 uIU/mL (0.32-4.0)
[2021-04-04 12:27] LABS: Alanine Aminotransferase 11 U/L (0-31); Albumin Level 4.6 g/dL (3.5-5.0); Alkaline Phosphatase 87 U/L (39-117); Anion Gap 15 (12-20); Aspartate Amino Transferase 18 U/L (5-31); Bilirubin Total 0.2 mg/dL (0.0-1.0); Blood Urea Nitrogen 27 mg/dL (9-16); Calcium 10.5 mg/dL (8.4-10.2); Carbon Dioxide 20 mmol/L (22-29); Chloride 106 mmol/L (96-108); Cholesterol 247 mg/dL; Estimated Glomerular Filt Rate 48; Glucose Fasting 101 mg/dL (60-99); HDL Cholesterol 63 mg/dL; LDL Cholesterol Calculated 163 mg/dl; Potassium 4.6 mmol/L (3.3-5.1); Sodium 136 mmol/L (135-145); Total Protein 7.9 g/dL (6.5-8.0); Triglycerides 108 mg/dL
[2021-04-04 12:53] LABS: Free T4 (Free Thyroxine) 0.74 ng/dL (0.71-1.85)
== END 2021-04-04 09:02 | disposition home or self-care (01) ==
LOC: HO.WFDLDS 09:01
PROVIDERS: Visit Provider Family Medicine
DX: Z00.00 Encounter for general adult medical examination without abnormal findings (principal); R73.01 Impaired fasting glucose; I10 Essential (primary) hypertension
CPT/HCPCS: 36415; 80053; 80061; 81003; 82043; 83036; 84439; 84443

== ENCOUNTER 2021-05-02 09:00 | Outpatient (RCR) | payer SELFPAY ==
--- NOTE | 2021-04-05 08:20 | MHC.PT.OD ---
[facility] [place] Office [place] Office [place] Office [address] Kobi Butler [address] [phone] F: [phone] F: [phone] F: [phone] F: [phone] Physical Therapy Daily Note Diagnosis: PT eval and treat, Pain in R shoulder M25.511, Neck pain M54.[address] Ladarius Nelson on 03/09/21 Date of Surgery: NA Date of Evaluation: 03/22/21 Date of Treatment: 03/25/21 Treatments to Date: Cancellations to Date: No Shows to Date: Authorized Visits: 3 Insurance End Date: Precautions/ Contraindications:cardiac left bundle branch block, HTN, Subjective: Pt expressing severe pain in recent days; has not been having any real relief with trial of muscle relaxer or ibuprofen (has reported taking 800mg 3x/ daily). Pain Score and Location: 4 Objective Flowsheet: Tests & Measures see eval Exercises Krank cycle posteriorly for postural training MHP to C/S and R shoulder supine x 10 minutes pre activity; AAROM cane flexion X 5R supine hand held assist vs supporting wrist assist, corner stretch x 4R x 30 sec hold, R>L upper trap stretch x 20 sec hold x 4R, pendulums x 4 minutes for R UE, AAROM shoulder flexion slide x 10 sec hold x 5R, isometric scapular retraction x 10R, shoulder rolls x 10R, seated row with RTB x 2 sets 10R with cues for scapular retraction. Cues for postural correction. Education re: lumbar support for sitting, Pt educated in benefit in trialing log roll vs flexion sitting up to protect back/neck. Encouraged to refrain from lifting with RUE, educated re: AAROM for overhead/lifting tasks. Educated reviewed support of pillow under arm behind humerus for support Seated for STM to R UT with pillow under arm in effort to increase tissue extensibility. Trial taping two I strips for B UT release with education to remove at end of day with instruction to monitor for skin irritation; Manual CTX C6/C7 level x 10 minutes in effort to centralize R UE sx. Pt expressed onset of R scapular sx at start of session, improved post completion, however continues to report radiating lateral shoulder pain. HEP sheets for corner stretch, encouragement to change position, trial gentle exercises if symptomatic Modalities Assessment: 04/04/21 Pt expressed worsening new R periscap radiating down length mid scapula, R lateral shoulder sx. Pt reports onset L worse than R middle finger catch with flexion/ext AROM - ? trigger finger. Difficult to discern improvement with trial of manual C-tx traction today. Pt initially reported pain radiating into R pericap which appeared to improve post manual C_tx, however she verbalizes severe lateral shoulder pain which was not improved with previous trials of C-tx. Gross R shoulder flexion 100 degrees with painful arc. Limited tolerance for AAROM secondary to periscap and neck pain despite supine positions trialed. 03/25/21 Some positive response reported after first session relief which lasted about a day. Today positive centralization to height of elbow. Pt is a RHD 65 y/o female, referred to PT for treatment of Pain in R shoulder, Cervicalgia following onset of sx which began at end of Jan. Pt had personal history of fall related to ETOH with ER visit in 01/01/21 but denies onset related to this. Pt does not present with any noted bruising on R UE, presents with poor ROM/AROM/PROM due to pain, present with report of radiating intermittent sx along R shoulder>elbow>wrist. Pt would benefit from attending skilled PT services at a frequency of 2x/week x 4 weeks to address impairments of ROM, centralize R radicular sx, reduce neck pain. Pt has a $35 copay/visit which may impact her ability to attend theapy at the recommended frequency of 2x/week x 4 weeks. Pt was initiated in AAROM of the R shoulder including table slides, shoulder pendulums following initial evaluation, instructed in gentle periscap squeezes as long as sx free, and pendulums. Pt received a postural support strap taping following initial eval with (+) reduction in R UE/R UT sx. Pt encouraged/educated she can wear ROCtkape up to 24 hours if feeling positive response, educated to remova if experiencing worsening sx or irritation reaction. Skin prep sensation intact preapplication. Pt verbalized understanding. PT Plan: Pt seen in PT for her third visit today. She may benefit from follow up with Jeanette Canas DNP, due to level of pain impacting sleeping tolerance. Therapist is questioning benefit in trial of steroid taper in goal of reducing radicular sx and improving overall tolerance for therapy. Therapist reiterated the importance of making sure ibuprofen is not taken on an empty stomach. Pt also reports bilateral middle fingers are catching ? trigger finger, bilateral thenar pain. She was encouraged to trial running her thumbs/wrists under warm water in the AM hours to ease sx. She may benefit from referral to OT to address bilateral hand/wrist and trigger finger sx in addition to current PT treatment for R cervical radiculopathy. She has tenderness and pain over spinous process C7. Pt has been attending therapy 2x/week, however she has a $35 copay per visit which may impact her ability her future frequency in therapy. Short Term Goals: 1. Centralize R UE sx to height of the elbow. 2. Reduce presence of R UE sx from constant to intermittent. 3. Pt will demonstrate postural/cervical strength/awareness. 4. Initiate postural scap/cervical stab program. 5. AAROM>AROM R shoulder flexion to 140 degrees. Catshovel Driver Goals: 1. Report complete centralization of R UE sx. 2. Strength middle and lower trap 4/5. 3. Strength ER 5/5 B. 4. Pt will demonstrate AROM R shoulder flexion to resemble uninvolved extremity. 5. Demonstrate good body mechanics and I self care/ HEP program. Electronically signed by: Nora Graff, PT, DPT
== END 2021-08-19 14:24 | disposition home or self-care (01) ==
LOC: HO.PTWFD 09:00
PROVIDERS: PCP Family Medicine; Visit Provider Family Medicine
DX: M25.511 Pain in right shoulder (principal)
CPT/HCPCS: 97110; 97140; 97162; 97535

== ENCOUNTER → 2022-08-22 11:15 | Outpatient (BNV) | payer MEDICARE, SELFPAY | PROVIDERS: Visit Provider Psychiatry & Neurology Psychiatry | DX: F32.9 Major depressive disorder, single episode, unspecified (principal) | CPT/HCPCS: 90792; 99213 ==

== ENCOUNTER 2022-08-28 11:54 | Outpatient (AMB) | payer MEDICARE, SELFPAY ==
--- NOTE | 2022-08-28 11:55 | A.OFFPC_ITS ---
Vital Signs 08/28/22 11:59 Height 5 ft 6 in Weight 152 lb BMI 24.5 BP 122/76 Blood Pressure Location Rt brachial Position Sitting Pulse 76 Pulse Source Pulse Oximeter Pulse Oximetry (%) 97 Oxygen Delivery Method Room Air Intake Visit Reasons: Pain in Left Shoulder/Left Wrist/Both Knees Intake Note: pt is here for left shoulder/left wrist/bilateral knee pain Regulatory Services Consultant Required: No Accompanied by: Self / Same As Patient Allergies aspirin [ASA] Allergy (Severe, Verified 08/28/22 12:09) Swelling, facial TREE POLLEN Allergy (Intermediate, Uncoded 08/28/22 12:09) Nasal congestion Medication List - Last Reconciled 08/28/22 by Cesilia Aden CNP albuterol sulfate 90 mcg/actuation (ProAir HFA) 2 puffs inhalation Q4-6H PRN 1 month amlodipine 5 mg PO DAILY hydroxyzine HCl 25 mg PO BID PRN levothyroxine 100 mcg PO 2XW 90 days levothyroxine 125 mcg PO 5XW 90 days lisinopril 40 mg PO DAILY loratadine 10 mg PO DAILY melatonin 5 mg PO BEDTIME PRN sertraline 100 mg PO DAILY 3 months trazodone 50 - 100 mg PO BEDTIME PRN Tobacco use date assessed: 08/28/22 Fall risk assessment: 2 + Falls in past year Last assessed Fall Risk: 08/28/22 Dental Screening Dental Screen Date: 08/28/22 Did you have a dental visit in the last 12 months?: No Did you have a dental problem in the last 6 months where you did not have access to dental care?: No Was dental information given to patient?: Yes HPI HPI Comments History of Present Illness Details 66-year-old female presents with complaints of left shoulder/wrist and bilateral knee pain, right knee is worst than left. She notes that around 05/30/2022, she was intoxicated of alcohol, she fell in the bathroom of her home. She does not recall how she landed. She started experiencing the pain after the fall. She notes that I smacked myself really bad. She describes the pain as sore and hurt. She notes that she checked into rehab for alcohol abuse in 06/07/2022 and has not consumed alcohol since. She states that her routine medications were refilled by a provider at the rehab facility. She states that she has not had x-rays of her extremities. She last saw her PCP was on 05/03/2021. [facility] Medical History (Updated 08/28/22 @ 12:39 by Cesilia Aden CNP) Anxiety and depression COPD (chronic obstructive pulmonary disease) H/O heartburn History of colon polyps HTN (hypertension) Hx of thyroid disease Stye Wears dentures Surgical History History of orbit decompression History of palate surgery Hx of arthroscopic knee surgery Hx of colonoscopy Family History Mother No problems noted. Father No problems noted. Other Substance use disorder Social History Household Members: Family Housing: House Alcohol intake: current Alcohol intake frequency: 3 or more drinks per day Alcohol type: wine Patient Tobacco Use Status: Former Tobacco user e-Cigarette/Vaping Use: Currently Using Second Hand Smoke Exposure: No service: No Current occupational status: employed Current occupation: [employer] Current occupational exposures/hazards: No Cognitive needs: No Hearing needs: No Vision needs: Yes Questionnaire PHQ-9 Over the last 2 weeks, how often have you been bothered by any of the following problems? 1. Little interest or pleasure in doing things: several days 2. Feeling down, depressed, or hopeless: not at all 3. Trouble falling or staying asleep, or sleeping too much: nearly every day 4. Feeling tired or having little energy: nearly every day 5. Poor appetite or overeating: several days 6. Feeling bad about yourself - or that you are a failure or have let yourself or your family down: not at all 7. Trouble concentrating on things, such as reading the newspaper or watching television: not at all 8. Moving or speaking so slowly that other people could have noticed. Or the opposite - being so fidgety or restless that you have been moving around a lot more than usual: not at all 9. Thoughts that you would be better off or of hurting yourself in some way: not at all Total score: 8 Depression Screening Interpretation: Positive Depression Screening Follow-up: Existing condition and In treatment 81429 - PHQ-9 Billing: Yes Source: Developed by Drs. Juan Pablo Ramírez, Kari Richards, Morgan Alanis and colleagues, with an educational dahiana from [employer]. Thrive Questionnaire Date Thrive assessed: 11/30/20 ALKA-7 AMB Questionnaire ALKA-7 Date ALKA - 7 assessed: 08/28/22 Feeling nervous, anxious, or on edge: 1 = Several days Not being able to stop or control worryin = Not at all Worrying too much about different things: 0 = Not at all Trouble relaxin = Several days Being so restless that it is hard to sit still: 0 = Not at all Becoming easily annoyed or irritable: 0 = Not at all Feeling afraid as if something awful might happen: 0 = Not at all Total ALKA-7 score (0-4 normal; 5-9 mild; 10-14 moderate; 15-21 severe): 2 Source: Developed by Drs. Juan Pablo Ramírez, Kari Richards, Morgan Alanis and colleagues, with an educational dahiana from [employer]. ALKA-7 Assessment Billing ALKA-7 Assessment Tool: ALKA-7 Assessment 67558 Review of Systems Const Details: Const Denies chills, Denies fatigue, Denies fever(s), Denies headache(s) and Denies weakness ENT Denies dizziness and Denies headache(s) Card Denies chest pain, Denies lightheadedness, Denies dyspnea and Denies other (Palpitations) Resp Denies cough, Denies dyspnea, Denies wheezing and Denies other ( shortness of breath) GI Denies abdominal pain, Denies melena, Denies hematochezia, Denies change in bowel habits, Denies dyspepsia and Denies nausea Denies hematuria and Denies dysuria Musc Reports left shoulder/wrist and bilat knee pain, Denies abnormal gait, Denies numbness and Denies tingling Skin/Breast Denies rash, Denies unusual bruising and Denies wounds Neuro Denies abnormal gait, Denies dizziness, Denies headache(s), Denies memory loss, Denies numbness, Denies Sensory deficit (Neuro), Denies tingling and Denies weakness Psych Denies anxiety and Denies depression Endo Denies fatigue Aller/Immun Denies wheezing Physical exam (Primary Care) Vital Signs: Last Vital Signs Pulse 76 07/24/23 11:59 BP 122/76 08/28/22 11:59 Pulse Ox 97 08/28/22 11:59 Oxygen Delivery Method Room Air 08/28/22 11:59 BMI result Body Mass Index 24.5 Tobacco/Smoking Status: Tobacco use Status Tobacco use date assessed 08/28/22 08/28/22 11:57 Patient Tobacco Use Status Former Tobacco user 08/28/22 11:57 Tobacco use type 04/04/21 09:00 e-Cigarette/Vaping Use Currently Using 08/28/22 11:57 PHQ-9: PHQ-9 Score PHQ-9: Total score 8 08/28/22 12:05 Depression Screening Interpretation: Positive Depression Screening Follow-up: Existing condition and In treatment Thrive Assessment: Date of Thrive Assessment Date Thrive assessed 11/30/20 08/28/22 11:57 Const Other: General: no acute distress and well developed Nutritional Appearance: well nourished Orientation/consciousness: patient oriented x3 HENMT Head: Yes normocephalic and Yes atraumatic Eyes General: appearance normal, both eyes and all related structures Pupils: Equal, round and reactive pupils present EOM: EOMs intact bilaterally Resp Effort & Inspection: normal respiratory effort Auscultation: clear to auscultation bilaterally Cardio Rate: regular rate Rhythm: regular rhythm Heart sounds: S1 normal heart sound present, S2 normal heart sound present, no gallops, no murmurs and no rubs GI Palpation (GI): No Abdominal aortic bruit present, Soft to palpation, nontender, No hepatosplenomegaly present and No Rebound tenderness present Auscultation: normal bowel sounds General: Yes no CVA tenderness Back/Spine/Pelvis Back: no CVA tenderness Cervical Spine: cervical ROM normal and No Cervical spine tenderness Thoracic/Lumbar Spine: thoraco-lumbar ROM normal, No pain with thoraco-lumbar ROM, No thoracic spinal tenderness and No lumbar spinal tenderness Extrem General: Yes normal to inspection, No edema and No calf tenderness Skin General: warm and dry. Normal skin color. Normal skin turgor Lesions: no lesions Rashes: no rashes Trauma: no lacerations or abrasions Wounds: no wounds Nails: normal Neuro General: patient oriented x3, gait normal and CN's II-XI intact bilaterally Cranial nerves: Yes Equal, round and reactive pupils present Cognition (Neuro): normal cognition Gait exam (Neuro): Normal gait present Motor exam (neuro): 5/5 motor strength present throughout Sensory Exam: No Sensory deficit (Neuro) Deep tendon reflexes (DTR's): Right patellar reflex intensity grade: 2+ and Left patellar reflex intensity grade: 2+ Psych Appearance: grossly normal Affect: normal affect Attitude: cooperative Thought process: Normal thought process present Assessment and Plan Assessment & Plan (1) Left shoulder pain: Code(s): M25.512 - Pain in left shoulder Plan: Normal range of motion of all extremities No overt injury or trauma noted Tylenol ordered. Take as prescribed Warm/cold compresses encouraged Follow-up with worsening or new symptoms Verbalized understanding and agreed with treatment plan. (2) Left wrist pain: Code(s): M25.532 - Pain in left wrist Plan: As above (3) Bilateral knee pain: Code(s): M25.561 - Pain in right knee; M25.562 - Pain in left knee Plan: As above (4) Hx of thyroid disease: Code(s): Z86.39 - Personal history of other endocrine, nutritional and metabolic disease Plan: Her TSH was elevated, 8.12 on 03/2021 She is on levothyroxine 125 mcg MTWTF, and 100 mcg on Sunday and Sundays TSH/T4 ordered. Will review results and make changes to her care plan if warranted Verbalized understanding and agreed with the plan. (5) Anxiety with depression: Code(s): F41.8 - Other specified anxiety disorders Plan: PHQ-9 revealed mild depression. ALKA-7 score is normal Hydroxyzine, sertraline, and trazodone as prescribed Routine exercise encouraged Follow-up with PCP as planned Return sooner with worsening or new symptoms Verbalized understanding and agreed with treatment plan. Orders: Orders TSH reflex Free T4 Today Z86.39 - Personal history of other endocrine, nutritional and metabolic disease Medications: New acetaminophen ER (Tylenol 8 Hour) 650 mg PO Q8H PRN 60 tabs 1RF pain Coding Level of Care Code Est Pt Level 4 (37670) Diagnoses Left shoulder pain M25.512 Left wrist pain M25.532 Bilateral knee pain M25.561; M25.562 Hx of thyroid disease Z86.39 Anxiety with depression F41.8 Additional Codes ALKA-7 Assessment Billing - ALKA-7 Assessment Tool: ALKA-7 Assessment 44254 ([id number]) Time Spent (min) 35
[2022-08-28 11:59] VITALS: BP 122/76; PULSE 76; O2SAT 97; BMI 24.5
== END 2022-08-28 12:35 | disposition home or self-care (01) ==
PROVIDERS: PCP Family Medicine; Visit Provider Nurse Practitioner Family
DX: M25.512 Pain in left shoulder (principal); Z86.39 Personal history of other endocrine, nutritional and metabolic disease; F41.8 Other specified anxiety disorders; M25.532 Pain in left wrist; M25.561 Pain in right knee; M25.562 Pain in left knee
CPT/HCPCS: 99214

== ENCOUNTER 2022-08-28 12:35 | Outpatient (REF) | payer MEDICARE, SELFPAY ==
[2022-08-28 15:14] LABS: TSH reflex Free T4 0.14 uIU/mL (0.32-4.0)
[2022-08-28 18:21] LABS: Free T4 (Free Thyroxine) 1.26 ng/dL (0.71-1.85)
== END 2022-08-28 12:36 | disposition home or self-care (01) ==
LOC: HO.WFDLDS 12:35
PROVIDERS: Visit Provider Nurse Practitioner Family
DX: Z86.39 Personal history of other endocrine, nutritional and metabolic disease (principal)
CPT/HCPCS: 36415; 84439; 84443

== ENCOUNTER 2022-09-12 11:30 | Outpatient (RCR) | payer MEDICARE, SELFPAY ==
[2022-08-21 12:21] VITALS: BP 98/63; PULSE 66; TEMP 36.3
[2022-08-21 12:24] VITALS: BMI 25.3
--- NOTE | 2022-08-21 13:40 | PC.ADMIT ---
Patient is a 66 year old female who was referred to [facility] by the [facility] rehabilitation program in [place] where patient resided for 1.5 months for treatment of severe alcohol use. Per records her brother, who resides with Marzena sectioned 35 patient to treatment. Patient reportedly has been using ETOH for the past 40 years however use had increased since Covid. Patient told this television script writer that she was drinking daily anywhere from 6-8 beers. Last use on June 05, 2022. She wants more support on her journey to continued sobriety. She also reports symptoms of depression and anxiety including low energy and low motivation to do things. Prior to patient's brother sectioning her she stated, My brother helped me ween down during the week prior to going to rehab. Patient is alert and oriented x4. Calm and cooperative. Presents with depressed mood and anxious affect. Denied SI. Denied history of self harming behaviors. Patient's medication reconciled with her pharmacy and patient. She reports she is taking medication as prescribed. She is aware of taking Levothyroxine 30 minutes prior to taking her other medications or food however this morning she took all of the medications together as she did not want to be late to the program. She was given a copy of her safety/relapse plan and I reviewed this plan with her.
--- NOTE | 2022-08-22 10:15 | P.HPPSP_ITS ---
HPI Date of Service: 08/22/22 Chief Complaint: depressive d/o,AUD Sources of Information: patient interviewed, chart reviewed and crisis/core team assessment reviewed HPI Healthcare Proxy: No Guardianship: No Medical Problems Affecting Mental Status: No Narrative: Marzena is a 66-year-old white, single, retired woman. She is starting partial hospital program today. She was recently discharged from an alcohol treatment unit in [place] after she was center on a [address]. She has a longstanding history of excessive use of beer, more recently up to 15. Her history goes back to her mid 30s. She has had attempts to stop drinking. She is going to start going to and back to [employer]. She also has had problems with depression and sometimes anxiety and has been on Zoloft 100 mg for over 20 years through her PCP. She denies any other substances. She denies any suicidal ideations. Past Psychiatric History: None [facility] Medical History Anxiety and depression COPD (chronic obstructive pulmonary disease) H/O heartburn History of colon polyps HTN (hypertension) Hx of thyroid disease Stye Wears dentures Surgical History History of orbit decompression History of palate surgery Hx of arthroscopic knee surgery Hx of colonoscopy Social History: Marzena is 1 of 4 siblings, 2 surviving. She states that both of her parents are . Two of her siblings are . She and her brother own home and live there. Her brother is . 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 Diagnostics Vital Signs (24Hr): Vital Signs - 24 hr 08/21/22 12:21 Temperature 97.3 F Pulse Rate 66 Blood Pressure 98/63 BMI result Body Mass Index 25.3 Meds/Allergies Meds Home Medications Medication Instructions Recorded Confirmed Type hydroxyzine HCl 25 mg tablet 25 mg PO BID PRN Anxiety 08/21/22 08/21/22 History loratadine 10 mg tablet 10 mg PO DAILY 08/21/22 08/21/22 History melatonin 5 mg tablet 5 mg PO BEDTIME PRN insomnia 08/21/22 08/21/22 History trazodone 50 mg tablet 50 - 100 mg PO BEDTIME PRN insomnia 08/21/22 08/21/22 History Allergies Allergies Allergy/AdvReac Type Severity Reaction Status Date / Time aspirin [ASA] Allergy Severe Swelling, Verified 05/03/21 11:09 facial TREE POLLEN Allergy Intermediate Nasal Uncoded 04/14/21 09:53 congestion Mental Status Exam Mental Status Exam Narrative: In today's visit she is alert, oriented and pleasant. Normal speech. Good eye contact. Affect is appropriate and varied. No overt signs of depression. No signs of psychosis. No SI/HI. Cognitively is intact. Judgment is intact Assessment & Plan Assessment & Plan (1) Alcohol dependence: Status: Acute Code(s): F10.20 - Alcohol dependence, uncomplicated Plan Continue partial hospital program. Continue Zoloft. Patient educated on: diagnosis and medication risk/benefits Certification I certify that partial hospital treatment is medically necessary due to the symptoms and problems resulting from the patient's mental illness and the failure to treat the patient at the partial hospital level of care would likely result in the patient requiring inpatient psychiatric care which could not be prevented at a less intensive level of care. Time Spent With Patient Time: Total time managing care of this patient today ____ minutes.
--- NOTE | 2022-08-25 08:17 | HO.PHP ---
The clients case was reviewed and opened in treatment team
--- NOTE | 2022-09-05 12:44 | HO.PHP ---
I called service and spoke with Christopher. He emailed the registration forms. I filled them out with the client and emailed them back with current medication list.
--- NOTE | 2022-09-08 14:31 | HO.PHPPROGNO ---
Subjective Subjective Date of Service: 09/08/22 Reason For Visit: depressive d/o,AUD Medical Problems Affecting Mental Status: No Interim History: Record reviewed including admission note on 08/22/2022 the partial hospital program. Patient able to clearly describe how she was doing prior to partial hospital programming, substance rehab services, recent stressors such as newly retiring in February of this year. Reports looking forward to her first AA group this weekend, is feeling very supported by family, staff and other patients at the partial hospital programming. Thinking about hobbies one being creative in nature such as rock painting and the second more practical learning how to use her computer and phone. Also wanting to be more healthy and seeing her primary care provider. Regarding mood still endorses this is low, depressed, low energy. Sleep is okay. Has been on Zoloft 100 mg for the last 2 years with that dose change. We did discuss potentially increasing this to 150 mg given ongoing low mood, despite partial hospital program support and no substance use for 2 months. Patient agreed to same and 30-day prescription sent for sertraline 150 mg. Medication Compliance: Yes Side effects from medications: No Attending Groups: Yes Review of Systems Acute medical concerns: No Mental Status Exam Mental Status Exam Narrative: Pleasant. Engaged. Fairly presented. Organized. Hard of hearing but able to converse. Affect is restricted and does endorse some depression. No SI. No HI. No agitation or psychosis. Insight and judgment good Diagnostics Vital Signs (24Hr): BMI result Body Mass Index 25.3 Assessment & Plan Assessment & Plan (1) Major depression: Status: Acute Code(s): F32.9 - Major depressive disorder, single episode, unspecified Plan We did discuss potentially increasing this to 150 mg given ongoing low mood, despite partial hospital program support and no substance use for 2 months. Patient agreed to same and 30-day prescription sent for sertraline 150 mg. Patient educated on: medication risk/benefits and therapeutic strategies Informed Consent: understands Reason for contiued partial hosp. stay Substantial Risk for: rapid decompensation Certification I certify that partial hospital treatment is medically necessary due to the symptoms and problems resulting from the patient's mental illness and the failure to treat the patient at the partial hospital level of care would likely result in the patient requiring inpatient psychiatric care which could not be prevented at a less intensive level of care. Total time managing care of this patient today __20__ minutes. Discharge Plan Discharge Attending provider: Attila Trejo Medications: New sertraline [Zoloft] 100 mg tablet 150 mg PO DAILY 30 Days Qty: 45 0RF Discontinued sertraline 100 mg tablet 100 mg PO DAILY 90 Days Qty: 90 6RF No Action albuterol sulfate [ProAir HFA] 90 mcg/actuation HFA aerosol inhaler 2 puff inhalation Q4-6H PRN (Reason: shortness of breath or wheezing) 30 Days Qty: 6.7 5RF levothyroxine 100 mcg tablet 100 mcg PO 2XW 90 Days Qty: 26 3RF Patient Comments: Sun-Sun Rx Instructions: take 30 minutes before food or any medications. Sunday and Sunday. levothyroxine 125 mcg tablet 125 mcg PO 5XW 90 Days Qty: 65 2RF Rx Instructions: Taked 100 mcg on Sunday and Sundays and the rest of the week takes 125 mcg. Take 30 minutes prior to eating and taking other medications. amlodipine 5 mg tablet 5 mg PO DAILY Qty: 90 3RF lisinopril 40 mg tablet 40 mg PO DAILY Qty: 30 0RF trazodone 50 mg tablet 50 - 100 mg PO BEDTIME PRN (Reason: insomnia) loratadine 10 mg tablet 10 mg PO DAILY melatonin 5 mg tablet 5 mg PO BEDTIME PRN (Reason: insomnia) hydroxyzine HCl 25 mg Tablet 25 mg PO BID PRN (Reason: Anxiety) acetaminophen [Tylenol 8 Hour] 650 mg tablet extended release 650 mg PO Q8H PRN (Reason: pain) Qty: 60 1RF Stand Alone Forms: Patient Portal Discharge page Telehealth Telehealth Location of provider rendering services: other ([facility]) Location of patient: other ([facility] Patient Identification confirmed using: Name, : Yes Patient verbally consented to treatment: Yes Minutes spent on Phone/Video with Pt.: 15
--- NOTE | 2022-09-12 15:12 | HO.PHP ---
I talked with Latisha at [facility] and faxed dc med list re referral for outpatient therapy.
== END 2022-09-12 23:59 | disposition home or self-care (01) ==
LOC: HO.PHPA 11:30
PROVIDERS: Visit Provider Psychiatry & Neurology Psychiatry
DX: F32.9 Major depressive disorder, single episode, unspecified (principal); F10.20 Alcohol dependence, uncomplicated; Z79.899 Other long term (current) drug therapy
CPT/HCPCS: 90791; 90853

== ENCOUNTER 2022-11-10 14:39 | Outpatient (REF) | payer MEDICARE, SELFPAY | END 2022-11-10 14:40 | disposition home or self-care (01) | LOC: HO.HMGCLDS 14:39 | PROVIDERS: PCP Family Medicine; Visit Provider Nurse Practitioner Family | DX: Z86.39 Personal history of other endocrine, nutritional and metabolic disease (principal) | CPT/HCPCS: 36415; 84439; 84443 ==

== ENCOUNTER 2022-11-13 09:07 | Outpatient (AMB) | payer MEDICARE, SELFPAY ==
--- NOTE | 2022-11-13 08:08 | AM.OFFVISMDC ---
Intake Vital Signs 11/13/22 09:16 Height 5 ft 6 in Weight 153 lb BMI 24.7 BP 122/62 Blood Pressure Location Rt brachial Position Sitting Pulse 73 Pulse Source Pulse Oximeter Pulse Oximetry (%) 97 Oxygen Delivery Method Room Air Intake Visit Reasons: Extended?exam Intake Note: Patient is here for an extended exam today. She would like a referral for a colonoscopy. Allergies aspirin [ASA] Allergy (Severe, Verified 11/13/22 09:18) Swelling, facial TREE POLLEN Allergy (Intermediate, Uncoded 11/13/22 09:18) Nasal congestion Do you need a note to return to daycare/school/sports/work: No HPI Extended?exam HPI Details Patient?presents?for?extended?exam Patient?has?some?upper?neck?and?shoulder?pain?and?stiffness.??This?is?somewhat?chronic.??She?has?benefited?from?physical?therapy?in?the?past?and?would?like?to?try?this?again. Also?has?bilateral?knee?pain?with?crepitus. She?gets?some?mild?constipation/diarrhea?and?does?not?think?she?is?drinking?enough?water. TSH?level?is?still?suppressed. She?says?she?is?taking?100?mcg?of?levothyroxine?daily. No?other?complaints.??Patient?feels?well?today. [facility] Medical History Stye H/O heartburn Wears dentures Anxiety and depression Hx of thyroid disease HTN (hypertension) COPD (chronic obstructive pulmonary disease) History of colon polyps Surgical History Hx of arthroscopic knee surgery Hx of colonoscopy History of orbit decompression History of palate surgery Family History Mother No problems noted. Father No problems noted. Other Substance use disorder Social History Household Members: Family Housing: House Alcohol intake: current Alcohol intake frequency: 3 or more drinks per day Alcohol type: wine Patient Tobacco Use Status: Former Tobacco user e-Cigarette/Vaping Use: Currently Using Second Hand Smoke Exposure: No service: No Current occupational status: employed Current occupation: [employer] Current occupational exposures/hazards: No Cognitive needs: No Hearing needs: No Vision needs: Yes Questionnaire Medicare Wellness Checkup [age] 65-68 What gender do you identify with?: female During the past 4 weeks, how much have you been bothered by emotional problems such as feeling anxious, depressed, irritable, sad or downhearted, and blue?: quite a bit During the past 4 weeks, has your physical & emotional health limited your social activities with family, friends, neighbors, or groups?: moderately During the past 4 weeks, how much bodily pain have you generally had?: moderate pain During the past 4 weeks, was someone available to help you if you needed & wanted help?: yes, as much as I wanted During the past 4 weeks, what was the hardest physical activity you could do for at least 2 minutes?: light Can you get to places out of walking distance without help? (For eg., can you travel alone on buses, taxis or drive your car?): Yes Can you go shopping for groceries or clothes without someone's help?: Yes Can you prepare your own meals?: Yes Can you do your housework without help?: No Because of any health problems, do you need the help of another person with your personal care needs such as eating, bathing, dressing or getting around the house?: No Can you handle your own money without help?: Yes During the past 4 weeks, how would you rate your health in general?: very good During the past 4 weeks how have things been going for you?: good & bad parts about equal Are you having difficulties driving your car?: no Do you always fasten your seat belt when you are in a car?: yes, usually During past 4 weeks, have you been bothered by the following: never: Falling or dizzy when standing up, Sexual problems? and Problems using the telephone?, sometimes: Trouble eating well? and often: Teeth or denture problems? and Tiredness or fatigue? Have you fallen 2 or more times in the past year?: Yes Are you afraid of falling?: Yes Are you a smoker?: no During the past 4 weeks, how many drinks of wine, beer, or other alcoholic beverages did you have?: no alcohol at all Do you exercise for about 20 minutes 3 or more times a week?: no, I usually do not exercise this much Have you been given information to help with the following?: yes: Hazards in your house that might hurt you? and yes: Keeping track of your medications? How often do you have trouble taking medicines the way you have been told to take them?: I always take medicine as prescribed How confident are you that you can control & manage most of your health problems?: very confident What is your race?: White PHQ-9 Over the last 2 weeks, how often have you been bothered by any of the following problems? 1. Little interest or pleasure in doing things: several days 2. Feeling down, depressed, or hopeless: several days 3. Trouble falling or staying asleep, or sleeping too much: several days 4. Feeling tired or having little energy: several days 5. Poor appetite or overeating: not at all 6. Feeling bad about yourself - or that you are a failure or have let yourself or your family down: not at all 7. Trouble concentrating on things, such as reading the newspaper or watching television: not at all 8. Moving or speaking so slowly that other people could have noticed. Or the opposite - being so fidgety or restless that you have been moving around a lot more than usual: not at all 9. Thoughts that you would be better off or of hurting yourself in some way: not at all Total score: 4 Source: Developed by Drs. Juan Pablo Ramírez, Kari Richards, Morgan Alanis and colleagues, with an educational dahiana from [employer]. Review of Systems Const Denies chills, Denies fatigue, Denies fever(s), Denies headache(s) and Denies weakness Eyes Denies change in vision ENT Denies dizziness, Denies headache(s), Denies hearing loss, Denies nasal congestion, Denies sinus pain, Denies sinus pressure and Denies sore throat Card Denies chest pain, Denies lightheadedness, Denies dyspnea and Denies other (palpitations) Resp Denies cough, Denies dyspnea and Denies wheezing GI Denies abdominal pain, Denies melena, Denies hematochezia, Denies change in bowel habits, Denies dyspepsia and Denies nausea Denies hematuria and Denies dysuria Musc Details: See?HPI Denies abnormal gait, Reports myalgias, Reports arthralgias, Denies numbness and Denies tingling Skin/Breast Denies rash, Denies unusual bruising and Denies wounds Neuro Denies abnormal gait, Denies dizziness, Denies headache(s), Denies memory loss, Denies numbness, Denies Sensory deficit (Neuro), Denies tingling and Denies weakness Psych Denies anxiety, Denies depression and Denies memory loss Endo Denies cold intolerance, Denies fatigue, Denies heat intolerance, Denies polydipsia and Denies polyuria Santo/Lymph Denies easy bleeding and Denies easy bruising Aller/Immun Denies wheezing Physical Exam Vital Signs: Last Vital Signs Pulse 73 11/13/22 09:16 BP 122/62 11/13/22 09:16 Pulse Ox 97 11/13/22 09:16 Oxygen Delivery Method Room Air 11/13/22 09:16 BMI result Body Mass Index 24.7 Const General: no acute distress, well developed, alert and awake Nutritional Appearance: well nourished Orientation/consciousness: patient oriented x3 HEENT Head: Yes normocephalic and Yes atraumatic Ears: hearing grossly normal bilaterally and TM's normal bilaterally General nose exam: Normal external nose present and Normal nares present Mouth: Normal oral and palatal mucosa present and moist mucous membranes Teeth and gingiva: dentition normal Throat: Yes posterior oropharynx normal Eyes Other: Mild?proptosis Pupils: Equal, round and reactive pupils present and Pupil accommodation reflex normal EOM: EOMs intact bilaterally Neck Neck: Yes normal visual inspection, Yes no lymphadenopathy and Yes trachea midline Thyroid: Thyroid normal Carotids: no bruits Lymphatic: no lymphadenopathy noted Chest Chest palpation & inspection: normal inspection of the chest Resp Effort & Inspection: normal respiratory effort Auscultation: clear to auscultation bilaterally Cardio Rate: regular rate Rhythm: regular rhythm Heart sounds: S1 normal heart sound present, S2 normal heart sound present, no gallops, no murmurs and no rubs Bruits: no abdominal aortic bruits and no carotid bruits GI Palpation (GI): No Abdominal aortic bruit present, Soft to palpation, nontender, No hepatosplenomegaly present and No Rebound tenderness present Auscultation: normal bowel sounds General: Yes no CVA tenderness Back/Spine/Pelvis Back: no CVA tenderness Cervical Spine: cervical ROM normal and No Cervical spine tenderness Thoracic/Lumbar Spine: thoraco-lumbar ROM normal, No pain with thoraco-lumbar ROM, No thoracic spinal tenderness and No lumbar spinal tenderness Skin Lesions: no lesions Rashes: no rashes Trauma: no lacerations or abrasions Wounds: no wounds Nails: normal Neuro General: patient oriented x3, gait normal and CN's II-XI intact bilaterally Cranial nerves: Yes Equal, round and reactive pupils present Cognition (Neuro): normal cognition Gait exam (Neuro): Normal gait present Motor exam (neuro): 5/5 motor strength present throughout Sensory Exam: No Sensory deficit (Neuro) Deep tendon reflexes (DTR's): Right patellar reflex intensity grade: 2+ and Left patellar reflex intensity grade: 2+ Extrem Other: Bilateral?knee?crepitus General: Yes normal to inspection and No edema Psych Appearance: grossly normal Affect: normal affect Attitude: cooperative Thought process: Normal thought process present Assessment & Plan Assessment & Plan (1) Hypothyroidism: Code(s): E03.9 - Hypothyroidism, unspecified Plan: TSH?still?suppressed?though?less?so She?says?she?has?been?on?levothyroxine?100?mcg?for?quite?some?time Decreasing?this?to?levothyroxine?88?mcg?daily Follow-up?in?2?months (2) Cervicalgia: Code(s): M54.2 - Cervicalgia Plan: Neck?and?upper?back/shoulder?pain?and?tightness Start?physical?therapy Ice/heat (3) Upper back pain: Code(s): M54.9 - Dorsalgia, unspecified Plan: As?above (4) Bilateral knee pain: Code(s): M25.561 - Pain in right knee; M25.562 - Pain in left knee Plan: Bilateral?knee?pain?and?cracking?sound Likely?some?arthritis?and?some?tendinopathy Referred?to?physical?therapy (5) Screening for colon cancer: Code(s): Z12.11 - Encounter for screening for malignant neoplasm of colon Plan: Patient?is?seen?every?2?years?and?is?due Referred?back?to?GI (6) Screening for breast cancer: Code(s): Z12.39 - Encounter for other screening for malignant neoplasm of breast Plan: Due?for?mammogram Ordered (7) Osteoporosis: Code(s): M81.0 - Age-related osteoporosis without current pathological fracture Plan: Last?bone?density?in?January?2020?showed?osteoporosis Will?be?due?again?in?January Discussed?medications?for?osteoporosis.??Patient?would?like?to?see?what?her?next?bone?density?test?looks?like?before?considering?a?medication. Bone?density?test?ordered. (8) Adult general medical exam: Code(s): Z00.00 - Encounter for general adult medical examination without abnormal findings Plan Last Colonoscopy about 2 yrs ago and seen q 2 yrs. [facility] GI Orders: Orders XR DEXA axial skeleton Today Z13.820 - Encounter for screening for osteoporosis Complete Blood Count Auto Diff Today Z00.00 - Encounter for general adult medical examination without abnormal findings Triiodothyronine T3 Total Today E03.9 - Hypothyroidism, unspecified Thyroid Stimulating Hormone Today E03.9 - Hypothyroidism, unspecified PT Evaluation and Treatment Today M25.561 - Pain in right knee, M25.562 - Pain in left knee, M54.2 - Cervicalgia, M54.9 - Dorsalgia, unspecified MM tomosynthesis screening BI Today Z12.31 - Encounter for screening mammogram for malignant neoplasm of breast Comprehensive [place]. Panel Fast Today E03.9 - Hypothyroidism, unspecified, Z00.00 - Encounter for general adult medical examination without abnormal findings Lipid Panel Today Z00.00 - Encounter for general adult medical examination without abnormal findings Microalbumin, Random (w Creat) Today I10 - Essential (primary) hypertension Free T4 (Free Thyroxine) Today E03.9 - Hypothyroidism, unspecified UA and rflx microscopic Today Z00.00 - Encounter for general adult medical examination without abnormal findings Medications: Refilled levothyroxine 88 mcg PO DAILY 30 days 30 tabs 2RF Discontinued levothyroxine Taked 100 mcg on Sunday and Sundays and the rest of the week takes 125 mcg. Take 30 minutes prior to eating and taking other medications. Discontinued Reason: Doctor's Order 125 mcg PO 5XW 90 days 65 tabs 2RF levothyroxine Discontinued Reason: Doctor's Order 100 mcg PO DAILY 90 days 90 tabs 1RF Quality Reporting (2019) Depression/Bipolar (159/160/161/177) PHQ-9: Total score: 4 Coding Level of Care Code Est Pt Level 4 (85139) Diagnoses Hypothyroidism E03.9 Cervicalgia M54.2 Upper back pain M54.9 Bilateral knee pain M25.561; M25.562 Screening for colon cancer Z12.11 Screening for breast cancer Z12.39 Osteoporosis M81.0 Adult general medical exam Z00.00
[2022-11-13 09:16] VITALS: BP 122/62; PULSE 73; O2SAT 97; BMI 24.7
== END 2022-11-13 10:17 | disposition home or self-care (01) ==
PROVIDERS: PCP Family Medicine; Visit Provider Family Medicine
DX: E03.9 Hypothyroidism, unspecified (principal); M54.2 Cervicalgia; M54.9 Dorsalgia, unspecified; M25.561 Pain in right knee; M25.562 Pain in left knee; Z12.11 Encounter for screening for malignant neoplasm of colon; Z12.39 Encounter for other screening for malignant neoplasm of breast; M81.0 Age-related osteoporosis without current pathological fracture; Z00.00 Encounter for general adult medical examination without abnormal findings
CPT/HCPCS: 99214

== ENCOUNTER → 2023-01-09 12:30 | Outpatient (BNV) | payer MEDICARE, SELFPAY | PROVIDERS: PCP Family Medicine; Visit Provider Radiology Diagnostic Radiology | DX: Z12.31 Encounter for screening mammogram for malignant neoplasm of breast (principal) | CPT/HCPCS: 77063; 77067 ==

== ENCOUNTER 2023-01-09 12:38 | Outpatient (REF) | payer MEDICARE, SELFPAY | END 2023-01-09 12:39 | disposition home or self-care (01) | LOC: HO.MAMMO 12:38 | PROVIDERS: PCP Family Medicine; Visit Provider Family Medicine | DX: Z12.31 Encounter for screening mammogram for malignant neoplasm of breast (principal) | CPT/HCPCS: 77063; 77067 ==

== ENCOUNTER 2023-01-18 16:12 | Outpatient (REF) | payer MEDICARE, SELFPAY ==
[2023-01-18 16:25] LABS: MANUAL DIFF FLAG NO
[2023-01-18 17:50] LABS: Appearance Urine Clear; Color Urine Yellow; Glucose Urine UA Negative (Negative); Leukocyte Esterase Urine Negative (Negative); Nitrite Urine Negative (Negative); PH 5.5 (5.0-9.0); Urine Blood Negative (Negative); Urine Ketones Negative (Negative); Urine Protein Negative (Neg-Trace)
[2023-01-18 18:14] LABS: Basophils Absolute Auto 0.1 X10*3/uL (0.0-0.2); Basophils Percent Auto 1.5 % (0-2); Eosinophils Absolute Auto 0.2 X10*3/uL (0.0-0.4); Eosinophils Percent Auto 3.6 % (0-4); Hematocrit 36.8 % (37.0-47.0); Hemoglobin 11.8 g/dl (12.0-16.0); Imm Gran Abs Auto 0.02 X10*3/uL (0.00-0.03); Imm Gran Pct Auto 0.3 % (0.0-0.4); Lymphocytes Absolute Auto 2.3 X10*3/uL (1.2-4.9); Lymphocytes Percent Auto 33.7 % (20-40); Mean Corpuscular HGB Conc 32.1 g/dl (31.0-35.0); Mean Corpuscular Hemoglobin 28.4 pg (27.0-33.0); Mean Corpuscular Volume 88.5 fL (80.0-98.0); Mean Platelet Volume 10.4 fL (9.4-12.3); Monocytes Absolute Auto 0.5 X10*3/uL (0.1-1.2); Neutrophils Absolute Auto 3.6 x10*3/uL (2.0-8.3); Neutrophils Percent Auto 53.9 % (45-73); Platelet Count 321 X10*3/uL (160-400); Red Blood Count 4.16 X10*6/uL (4.20-5.50); Red Cell Distribution Width 15.9 % (11.0-16.0); White Blood Count 6.7 X10*3/uL (4.8-10.8)
[2023-01-18 18:17] LABS: Creatinine Urine 121.44 mg/dL; Microalbumin Urine < 5.0 mg/L
[2023-01-18 18:22] LABS: Alanine Aminotransferase 12 U/L (0-31); Albumin Level 4.5 g/dL (3.5-5.0); Alkaline Phosphatase 111 U/L (39-117); Anion Gap 12 (12-20); Aspartate Amino Transferase 19 U/L (5-31); Bilirubin Total 0.2 mg/dL (0.0-1.0); Blood Urea Nitrogen 19 mg/dL (9-16); Calcium 9.4 mg/dL (8.4-10.2); Carbon Dioxide 22 mmol/L (22-29); Chloride 110 mmol/L (96-108); Cholesterol 246 mg/dL (<200); Estimated Glomerular Filt Rate 52; Glucose Fasting 88 mg/dL (60-99); HDL Cholesterol 67 mg/dL (>40); LDL Cholesterol Calculated 154 mg/dL (<100); Potassium 4.6 mmol/L (3.3-5.1); Sodium 139 mmol/L (135-145); Total Protein 7.6 g/dL (6.5-8.0); Triglycerides 126 mg/dL (<150)
[2023-01-18 18:37] LABS: Thyroid Stimulating Hormone 1.47 uIU/mL (0.32-4.0)
[2023-01-19 10:28] LABS: Triiodothyronine T3 Total 92 ng/dL (76-181)
== END 2023-01-18 16:13 | disposition home or self-care (01) ==
LOC: HO.LAB 16:12
PROVIDERS: PCP Family Medicine; Visit Provider Family Medicine
DX: Z00.00 Encounter for general adult medical examination without abnormal findings (principal); E03.9 Hypothyroidism, unspecified; I10 Essential (primary) hypertension
CPT/HCPCS: 36415; 80053; 80061; 81003; 82570; 84439; 84443; 84480; 85025

== ENCOUNTER 2023-02-28 11:44 | Outpatient (AMB) | payer MEDICARE, SELFPAY ==
[2023-02-28 11:59] VITALS: BP 118/64; PULSE 75; O2SAT 97; BMI 25.1
--- NOTE | 2023-02-28 11:59 | MHC.PC.OV ---
Vital Signs 02/28/23 11:59 Height 5 ft 6 in Weight 155 lb 4 oz BMI 25.1 BP 118/64 Blood Pressure Location Lt brachial Position Sitting Pulse 75 Pulse Source Pulse Oximeter Pulse Oximetry (%) 97 Oxygen Delivery Method Room Air Intake Visit Reasons: f/u hypothyroidism Intake Note: Patient is here to follow up on hypothyroidism. Patient's insurance requesting 90-days supply of her meds. Patient needs refill of Lisinoril, and 10 days left of Sertraline left. Allergies aspirin [ASA] Allergy (Severe, Verified 02/28/23 12:01) Swelling, facial TREE POLLEN Allergy (Intermediate, Uncoded 02/28/23 12:01) Nasal congestion Tobacco use date assessed: 02/28/23 Dental Screening Dental Screen Date: 02/28/23 Did you have a dental visit in the last 12 months?: Yes Did you have a dental problem in the last 6 months where you did not have access to dental care?: No Was dental information given to patient?: Patient has dentist HPI f/u hypothyroidism HPI Details 67 y/o female presents to f/u hypothyroidism. Labs were drawn 01/18/23. Reviewed labs with pt. Mild anemia. Triglycerides 126. TC 246. LDL 154. HDL 67. TSH improved from 0.30 to 1.47. She is on levothyroxine 88 mcg daily. Blood pressure today 118/64. She is on lisinopril 40mg, amlodipine 5mg daily. Mammogram in January which looked fine. [facility] Medical History Stye H/O heartburn Wears dentures Anxiety and depression Hx of thyroid disease HTN (hypertension) COPD (chronic obstructive pulmonary disease) History of colon polyps Surgical History Hx of arthroscopic knee surgery Hx of colonoscopy History of orbit decompression History of palate surgery Family History Mother No problems noted. Father No problems noted. Other Substance use disorder Social History Household Members: Family Housing: House Alcohol intake: current Alcohol intake frequency: 3 or more drinks per day Alcohol type: wine Patient Tobacco Use Status: Former Tobacco user e-Cigarette/Vaping Use: Currently Using Second Hand Smoke Exposure: No service: No Current occupational status: employed Current occupation: [employer] Current occupational exposures/hazards: No Cognitive needs: No Hearing needs: No Vision needs: Yes Questionnaire PHQ-9 Over the last 2 weeks, how often have you been bothered by any of the following problems? 1. Little interest or pleasure in doing things: several days 2. Feeling down, depressed, or hopeless: several days 3. Trouble falling or staying asleep, or sleeping too much: several days 4. Feeling tired or having little energy: not at all 5. Poor appetite or overeating: more than half the days 6. Feeling bad about yourself - or that you are a failure or have let yourself or your family down: not at all 7. Trouble concentrating on things, such as reading the newspaper or watching television: not at all 8. Moving or speaking so slowly that other people could have noticed. Or the opposite - being so fidgety or restless that you have been moving around a lot more than usual: not at all 9. Thoughts that you would be better off or of hurting yourself in some way: not at all Total score: 5 Source: Developed by Drs. Juan Pablo Ramírez, Kari Richards, Morgan Alanis and colleagues, with an educational dahiana from [employer]. Thrive Questionnaire Date Thrive assessed: 02/28/23 I am a: Patient What is your living situation today?: I have a steady place to live Within the past 12 months, did the food you bought not last and you didn't have the money to get more?: Never true Within the past 12 months, did you worry whether your food would run out before you got money to buy more?: Never true Do you have trouble paying for medicines?: No Do you have trouble getting transportation to medical appointments?: No Do you have trouble paying your heating and electricity bill?: No Do you have trouble taking care of your child, family member or friend?: No Do you have trouble with day-to-day activities such as bathing, preparing meals, shopping, managing finances, etc.?: No Are you currently unemployed and looking for a job?: No Are you interested in more education?: Yes THRIVE Score: 0 AUDIT C Alcohol Use Questionnaire (AUDIT-C) 1. How often do you have a drink containing alcohol?: Monthly or less 2. How many drinks containing alcohol do you have on a typical day when you are drinking?: 1 or 2 3. How often do you have six or more drinks on one occasion?: Never Total Score: 1 ALKA-7 AMB Questionnaire ALKA-7 Date ALKA - 7 assessed: 02/28/23 Feeling nervous, anxious, or on edge: 1 = Several days Not being able to stop or control worryin = Not at all Worrying too much about different things: 1 = Several days Trouble relaxin = Nearly every day Being so restless that it is hard to sit still: 0 = Not at all Becoming easily annoyed or irritable: 0 = Not at all Feeling afraid as if something awful might happen: 0 = Not at all Total ALKA-7 score (0-4 normal; 5-9 mild; 10-14 moderate; 15-21 severe): 5 Source: Developed by Drs. Juan Pablo Ramírez, Kari Richards, Morgan Alanis and colleagues, with an educational dahiana from [employer]. Review of Systems Const Denies chills, Denies fatigue, Denies fever(s), Denies headache(s) and Denies weakness ENT Denies dizziness and Denies headache(s) Card Denies dyspnea Resp Denies cough, Denies dyspnea, Denies wheezing and Denies other (shortness of breath) Musc Denies numbness and Denies tingling Neuro Denies dizziness, Denies headache(s), Denies numbness, Denies tingling and Denies weakness Psych Denies anxiety and Denies depression Endo Denies fatigue Aller/Immun Denies wheezing Physical exam (Primary Care) Vital Signs: Last Vital Signs Pulse 75 02/28/23 11:59 BP 118/64 02/28/23 11:59 Pulse Ox 97 02/28/23 11:59 Oxygen Delivery Method Room Air 02/28/23 11:59 BMI result Body Mass Index 25.1 Tobacco/Smoking Status: Tobacco use Status Tobacco use date assessed 02/28/23 02/28/23 12:12 Patient Tobacco Use Status Former Tobacco user 02/28/23 12:12 Tobacco use type 04/04/21 09:00 e-Cigarette/Vaping Use Currently Using 02/28/23 12:12 PHQ-9: PHQ-9 Score PHQ-9: Total score 5 02/28/23 12:28 Thrive Assessment: Date of Thrive Assessment Date Thrive assessed 02/28/23 02/28/23 12:12 Const General: well developed; No acute distress Nutritional Appearance: well nourished Orientation/consciousness: patient oriented x3 HENMT Head: Yes normocephalic and Yes atraumatic Eyes General: appearance normal, both eyes and all related structures Pupils: Equal, round and reactive pupils present EOM: EOMs intact bilaterally Resp Effort & Inspection: normal respiratory effort Neuro General: patient oriented x3 and gait normal Cranial nerves: Yes Equal, round and reactive pupils present Psych Affect: normal affect Assessment and Plan Assessment & Plan (1) Osteoporosis: Code(s): M81.0 - Age-related osteoporosis without current pathological fracture Plan: Bone?density?has?not?been?performed?in?the?last?2?years.??I?have?ordered?bone?density?again. (2) Hypothyroidism: Code(s): E03.9 - Hypothyroidism, unspecified Plan: Thyroid?hormone?levels?are?all?within?normal?range Continue?levothyroxine?as?prescribed (3) Essential hypertension: Code(s): I10 - Essential (primary) hypertension Plan: Blood?pressure?is?controlled No?medication?changes?made?today (4) Screening for breast cancer: Code(s): Z12.39 - Encounter for other screening for malignant neoplasm of breast Plan: Recent?mammogram?shows?no?evidence?of?malignancy Continue?annual?screening (5) Screening for colon cancer: Code(s): Z12.11 - Encounter for screening for malignant neoplasm of colon Plan: Patient?had?a?colonoscopy?in?2021. Follow-up?was?recommended?for?3?years;?2024. She?can?contact?her?sidewalk inspector?if?she?has?any?concern? (6) Hypercholesterolemia: Code(s): E78.00 - Pure hypercholesterolemia, unspecified Plan: LDL?cholesterol?is?too?high Trial?a?low?dose?of?atorvastatin Recheck?in?3?months (7) Mild anemia: Code(s): D64.9 - Anemia, unspecified Plan: Stable Will follow. Orders: Orders Lipid Panel Today Z00.00 - Encounter for general adult medical examination without abnormal findings Complete Blood Count Auto Diff Today D64.9 - Anemia, unspecified, Z00.00 - Encounter for general adult medical examination without abnormal findings XR DEXA axial skeleton Today M81.0 - Age-related osteoporosis without current pathological fracture Comprehensive [place]. Panel Fast Today Z00.00 - Encounter for general adult medical examination without abnormal findings Medications: New atorvastatin 10 mg PO BEDTIME 30 tabs 2RF 30 days Coding Level of Care Code Est Pt Level 4 (37397) Diagnoses Osteoporosis M81.0 Hypothyroidism E03.9 Essential hypertension I10 Screening for breast cancer Z12.39 Screening for colon cancer Z12.11 Hypercholesterolemia E78.00 Mild anemia D64.9
== END 2023-02-28 12:43 | disposition home or self-care (01) ==
PROVIDERS: PCP Family Medicine; Visit Provider Family Medicine
DX: M81.0 Age-related osteoporosis without current pathological fracture (principal); E03.9 Hypothyroidism, unspecified; I10 Essential (primary) hypertension; Z12.39 Encounter for other screening for malignant neoplasm of breast; Z12.11 Encounter for screening for malignant neoplasm of colon; E78.00 Pure hypercholesterolemia, unspecified; D64.9 Anemia, unspecified
CPT/HCPCS: 99214

== ENCOUNTER 2023-03-15 16:24 | Outpatient (REF) | payer MEDICARE, SELFPAY ==
[2023-03-15 16:59] LABS: Appearance Urine Turbid; Color Urine Dark Yellow; Glucose Urine UA Negative (Negative); Leukocyte Esterase Urine Large (3+) (Negative); Nitrite Urine Negative (Negative); UMIC TRIGGER UACC YES; Urine Blood Moderate (2+) (Negative); Urine Ketones Trace mg/dL (Negative); Urine Protein 100 (2+) mg/dL (Neg-Trace)
[2023-03-15 17:28] LABS: Bacteria Urine 2+ (None Seen); UACC Culture Trigger YES; WBC Urine 21-50 /HPF (0-5)
== END 2023-03-15 16:25 | disposition home or self-care (01) ==
LOC: HO.LAB 16:24
PROVIDERS: PCP Family Medicine; Visit Provider Family Medicine
DX: R39.9 Unspecified symptoms and signs involving the genitourinary system (principal)
CPT/HCPCS: 81001; 87086; 87088; 87186

== ENCOUNTER 2023-03-16 10:37 | Outpatient (AMB) | payer MEDICARE, SELFPAY ==
--- NOTE | 2023-03-16 10:38 | MHC.PC.OV ---
Vital Signs 03/16/23 10:41 Height 5 ft 6 in Weight 153 lb 4 oz BMI 24.7 BP 130/60 Blood Pressure Location Rt brachial Position Sitting Pulse 84 Pulse Source Pulse Oximeter Pulse Oximetry (%) 91 L Oxygen Delivery Method Room Air Intake Visit Reasons: abdominal pain, hematuria, UA ordered Intake Note: Patient is here to follow up on abdominal pain, hematuria, UA results. Rn Charge Required: No Seasonal Clerk: Not Required per policy Accompanied by: Self / Same As Patient Allergies aspirin [ASA] Allergy (Severe, Verified 03/16/23 10:56) Swelling, facial TREE POLLEN Allergy (Intermediate, Uncoded 03/16/23 10:40) Nasal congestion Medication List - Last Reconciled 03/16/23 by JULISA Camargo-BARI acetaminophen ER (Tylenol 8 Hour) 650 mg PO Q8H PRN albuterol sulfate 90 mcg/actuation (ProAir HFA) 2 puffs inhalation Q4-6H PRN 1 month amlodipine 5 mg PO DAILY atorvastatin 10 mg PO BEDTIME 30 days calcium polycarbophil (FiberCon) 625 mg PO DAILY 30 days hydroxyzine HCl 25 mg PO BID PRN 30 days levothyroxine 88 mcg PO DAILY 30 days lisinopril 40 mg PO DAILY loratadine 10 mg PO DAILY melatonin 5 mg PO BEDTIME PRN 30 days nitrofurantoin monohyd/m-cryst 100 mg (Macrobid) 100 mg PO BID 7 days polyethylene glycol 400 0.25% drps ophthalmic (eye) sertraline (Zoloft) 150 mg (1.5 x 100 mg) PO DAILY 30 days trazodone 50 - 100 mg (1 - 2 x 50 mg) PO BEDTIME PRN 30 days Tobacco use date assessed: 03/16/23 Fall risk assessment: No Falls in past year Last assessed Fall Risk: 03/16/23 HPI HPI Comments History of Present Illness Details Here today with urinary complaints. On 03/12/23 started w/ pain in her lower abd. assoc w dysuria. [place] like she was having a hard time urinating. On 03/13/23 felt like she passed something while urinating. she was not able to see anything as she had a BM at the same time. However her stomach pain improved after this. Feels mildly queasy Urine done 03/15/23 reviewed w/ her today.Urine from March 15 is dark yellow and turbid 2+ protein positive ketones moderate blood large amount of leuk esterase 6-10 RBCs 21-50 WBC 6-10 squamous epithelial cells 2+ bacteria 6-10 hyaline cast. Urine culture is pending. no at home treatments. Denies fever, chills, n/v, vaginal d/c. Also complains of a chronic stye on her left eye. Reports that her current eye doctor does not deal with this. She would like a new referral and wonders if there is any treatment for this. [facility] Medical History Stye H/O heartburn Wears dentures Anxiety and depression Hx of thyroid disease HTN (hypertension) COPD (chronic obstructive pulmonary disease) History of colon polyps Surgical History Hx of arthroscopic knee surgery Hx of colonoscopy History of orbit decompression History of palate surgery Family History Mother No problems noted. Father No problems noted. Other Substance use disorder Social History Household Members: Family Housing: House Alcohol intake: current Alcohol intake frequency: 3 or more drinks per day Alcohol type: wine Patient Tobacco Use Status: Former Tobacco user e-Cigarette/Vaping Use: Currently Using Second Hand Smoke Exposure: No service: No Current occupational status: employed Current occupation: [employer] Current occupational exposures/hazards: No Cognitive needs: No Hearing needs: No Vision needs: Yes Questionnaire Thrive Questionnaire Date Thrive assessed: 02/28/23 ALKA-7 AMB Questionnaire ALKA-7 Date ALKA - 7 assessed: 02/28/23 Source: Developed by Drs. Juan Pablo Ramírez, Kari Richards, Morgan Alanis and colleagues, with an educational dahiana from [employer]. Review of Systems Const All systems reviewed & are unremarkable except as noted in HPI and below Physical exam (Primary Care) Vital Signs: Last Vital Signs Pulse 84 03/16/23 10:41 BP 130/60 03/16/23 10:41 Pulse Ox 91 L 03/16/23 10:41 Oxygen Delivery Method Room Air 03/16/23 10:41 BMI result Body Mass Index 24.7 Tobacco/Smoking Status: Tobacco use Status Tobacco use date assessed 03/16/23 03/16/23 10:47 Patient Tobacco Use Status Former Tobacco user 03/16/23 10:39 Tobacco use type 04/04/21 09:00 e-Cigarette/Vaping Use Currently Using 03/16/23 10:39 Thrive Assessment: Date of Thrive Assessment Date Thrive assessed 02/28/23 03/16/23 10:39 Const Other: awake alert NAD Stye upper lid left eye MMM NO CVAT Bilat Mild suprapubic tenderness w/ palp Results AMB Urinalysis, Automated UA Leukoctes 1 Capri/uL Last Edit by JUDITH Bartholomew on 03/16/23 11:37 UA Nitrite Negative Last Edit by Jabari Schulz [facility] on 03/16/23 11:37 UA Urobilinogen 0 mg/dL Last Edit by JUDITH Bartholomew on 03/16/23 11:37 UA Protein 1 mg/dL Last Edit by Jabari Schulz [facility] on 03/16/23 11:37 UA pH 5.0 Last Edit by Jabari Schulz [facility] on 03/16/23 11:37 UA Blood 2 Landen/uL Last Edit by JUDITH Bartholomew on 03/16/23 11:37 UA Specific [place] 1.025 Last Edit by Jabari Schulz [facility] on 03/16/23 11:37 UA Ketone Positive Last Edit by JUDITH Bartholomew on 03/16/23 11:37 UA Bilirubin 1 mg/dL Last Edit by Jabari Schulz [facility] on 03/16/23 11:37 UA Glucose 0 mg/dL Last Edit by Jabari Schulz [facility] on 03/16/23 11:37 Assessment and Plan Assessment & Plan (1) Hematuria: Code(s): R31.9 - Hematuria, unspecified Qualifiers: Hematuria type: unspecified type Qualified Code(s): R31.9 - Hematuria, unspecified Plan: Likely resultant from a renal stone based on the UA done March 15. The urine culture is pending at the current time. She is nontoxic and is feeling much better. Repeat urine was done today and about the same. The plan will be to hydrate liberally, Zofran for nausea, and an antibiotic that is renally dose based on her most recent GFR in the 50s. She reports that she is tolerated this antibiotic quite well in the past. Educated on signs and symptoms to seek additional care such as fever chills nausea vomiting worsening pain. She may require ultrasound imaging to rule out obstructive sooner should her symptoms return or worsen. However I do not think this is necessary at the current time given her presentation today and improvement of symptoms (2) Routine eye exam: Code(s): Z01.00 - Encounter for examination of eyes and vision without abnormal findings (3) Stye: Comment: Left lower lid. Advised to rinse I with tear free Vikas and Vikas baby shampoo 3 times a day until healed. I have placed a referral to a new eye doctor as it sounds like the current 1 that she has is for surgery only and not general ophthalmology. Code(s): H00.019 - Hordeolum externum unspecified eye, unspecified eyelid Qualifiers: Laterality: left Eyelid: upper Qualified Code(s): H00.014 - Hordeolum externum left upper eyelid Plan This note is constructed using voice recognition software. While every effort has been made to ensure accuracy in classification analyst, still errors may have been included Sometimes, these errors may affect the content or meaning of the given sentence . Total time spent caring for the patient today was 60 minutes. This includes time spent before the visit reviewing the chart, time spent during the visit, and time spent after the visit on documentation Orders: Orders AMB Urinalysis Automated Today R31.9 - Hematuria, unspecified Referrals Ophthalmology Referral Z01.00 - Encounter for examination of eyes and vision without abnormal findings Medications: New amoxicillin-pot clavulanate 500-125 mg 1 tab PO BID 7 days 14 tabs 0RF ondansetron HCl 4 mg PO Q8H 3 days PRN 15 tabs 0RF nausea and vomiting Discontinued nitrofurantoin monohyd/m-cryst 100 mg (Macrobid) must administer with a meal/food Discontinued Reason: Doctor's Order 100 mg PO BID 7 days 14 caps 0RF Coding Level of Care Code Est Pt Level 5 (85506) Diagnoses Hematuria, unspecified type R31.9 Hematuria type: unspecified type Routine eye exam Z01.00 Hordeolum externum of left upper eyelid H00.014 Laterality: left Eyelid: upper
[2023-03-16 10:41] VITALS: BP 130/60; PULSE 84; O2SAT 91; BMI 24.7
== END 2023-03-16 11:59 | disposition home or self-care (01) ==
PROVIDERS: PCP Family Medicine; Visit Provider Nurse Practitioner Family
DX: R31.9 Hematuria, unspecified (principal); Z01.00 Encounter for examination of eyes and vision without abnormal findings; H00.014 Hordeolum externum left upper eyelid
CPT/HCPCS: 81003; 99215

== ENCOUNTER 2023-05-24 12:10 | Outpatient (AMB) | payer MEDICARE, SELFPAY ==
--- NOTE | 2023-05-24 12:09 | MHC.OFFVIS ---
Vital Signs 05/24/23 12:11 Height 5 ft 6 in Weight 150 lb 12.739 oz BMI 24.3 BP 99/55 L Blood Pressure Location Lt brachial Position Sitting Pulse 85 Intake Visit Reasons: Follow up Intake Note: Patient scheduled today's visit to discussed colonoscopy. Patient c/o: diarrhea daily. Bisacodyl rx sent to pharmacy yesterday. Reports constipation episode 2m ago. Colonoscopy: 10-29-2020 [employer] Required: No Allergies aspirin [ASA] Allergy (Severe, Verified 05/24/23 12:16) Swelling, facial TREE POLLEN Allergy (Intermediate, Uncoded 05/24/23 12:16) Nasal congestion HPI HPI Follow up: Details: Assessment & Plan (1) Tubular adenoma of colon: Comment: 2020 scope 2 quite large polyps repeat in 3 years Code(s): D12.6 - Benign neoplasm of colon, unspecified Plan: This will be my 1st contact with the patient She tolerated the procedure well. I advised her of the results and because some of the polyps were quite large we should repeat the procedure in 3 years to be sure we stay ahead of the curve and keep her cancer free. She is agreeable to this. I also educated her that she should never go more than 5 years without a colonoscopy because people who grow polyps tend to grow more them. She was also advised let any 1st degree relatives note so that they can be screening by age 45. Her bowels have returned to her normal but she still suffers largely postprandial diarrhea and occasionally a pinching in her right upper quadrant. I tell her that the pinching could be related to bowel spasm and that we could consider treating both this and the diarrhea was something like dicyclomine. This depends on how much it is a bother to her. For now she opts to wait. We review her ultrasound results and I tell her that it is possible that the gallbladder may not be functioning exactly the way it should even though she does not appear to have gallstones. For now she is not in favor of any further investigations. She asks how she can keep her body from growing polyps and I advised her that we do not know all the answers about this but generally a high-fiber diet and avoiding things like cigarettes and alcohol seem to have a role in keeping the colon healthy. We discussed dietary interventions such as whole grains in her pastas and breads, eating a lot of fresh fruits and vegetables, or even considering adding fiber supplement such as Benefiber or Citrucel every morning. I offered to write these down for her but she says that she will remember them. I offer her my business card but she already took 1 from the counter. At this point she will call us if she wishes to have any further treatment and she is aware we will put her on a 3 year recall list.. (2) Postprandial diarrhea: Code(s): K52.9 - Noninfective gastroenteritis and colitis, unspecified Laboratory Tests 01/18/23 16:24 WBC 6.7 RBC 4.16 L Hgb 11.8 L Hct 36.8 L MCV 88.5 Plt Count 321 Estimated GFR 52 Total Bilirubin 0.2 AST 19 ALT 12 Alkaline Phosphatase 111 TSH 1.47 Free T4 1.00 TODAY'S VISIT THE PATIENT'S COLONOSCOPY WAS 10/2020 SO SHE IS DUE FOR REPEAT. She was initially seen by Rebeka Lyons and mistakenly put on my schedule after her colonoscopy follow-up at that time. While she was scheduled just for her repeat colonoscopy apparently she has been having trouble with diarrhea for the past couple of weeks.BUT then she says that this has been a problem for 4-5 years. She very rarely has solid BM's and she has frequent explosive diarrhea. She has tried Imodium and she was recently prescribed Benefiber w/o any help and it made her more uncomfortable. She been tested in the past for RAST allergies and none were found. She has had at least 2 colonoscopies with no severe abnormal findings. There is no family history of diarrheal syndromes or food allergies that she is aware of. She has never had her gallbladder removed. Her mother had FB problems and had a cholecystectomy. She stopped drinking ETOH after seeing me in 2020 and even completed a course in rehab. I congratulate her on this wonderful and quite large step to improve her health! She had a recent cardiac work up that was negative. She has asthma and COPD that are well controlled, no cardiac problems. No ID problems. She had large polyps with her 2020 scope she does not know fi there is any FHX of CRC or polyps. Trial bentyl rov 4 weeks. [facility] Medical History (Updated 05/24/23 @ 16:04 by JUAN Morris) Postprandial diarrhea Toe pain, right Abnormal x-ray Annual physical exam Right anterior shoulder pain Abnormal x-ray of bone Immunization counseling Abdominal pain Left foot pain Rectal bleeding Fall Left knee pain Left shoulder pain Left wrist pain Screening for breast cancer Screening for colon cancer Adult general medical exam Stye H/O heartburn Wears dentures Anxiety and depression Hx of thyroid disease HTN (hypertension) COPD (chronic obstructive pulmonary disease) History of colon polyps Surgical History Hx of arthroscopic knee surgery Hx of colonoscopy History of orbit decompression History of palate surgery Family History Mother No problems noted. Father No problems noted. Other Substance use disorder Social History Household Members: Family Housing: House Alcohol intake: current Alcohol intake frequency: 3 or more drinks per day Alcohol type: wine Patient Tobacco Use Status: Former Tobacco user e-Cigarette/Vaping Use: Currently Using Second Hand Smoke Exposure: No service: No Current occupational status: employed Current occupation: [employer] Current occupational exposures/hazards: No Cognitive needs: No Hearing needs: No Vision needs: Yes Review of Systems Const Denies fatigue, Denies fever(s), Reports frequent falls, Denies night sweats, Denies poor appetite and Denies weight loss ENT Reports Normal hearing present, Denies dental pain, Denies dysphagia, Denies hearing loss, Denies mouth pain, Denies odynophagia, Denies throat swelling, Denies tongue swelling and Reports other (Dentition adequate) Card Reports no additional complaints Resp Reports no additional complaints GI Details: Denies abdominal pain, Denies melena, Denies bloating, Denies hematochezia, Denies constipation, Reports GI cramping, Denies dysphagia, Denies excessive flatus, Denies early satiety, Denies heartburn, Reports diarrhea, Denies nausea, Denies odynophagia, Denies vomiting and Denies hematemesis Musc Reports abnormal gait, Reports back pain and Reports arthralgias Skin/Breast Denies pruritus, Denies lesions, Denies rash and Denies jaundice Neuro Reports Normal hearing present, Denies Abnormal speech present, Reports abnormal gait and Reports frequent falls Endo Denies fatigue Aller/Immun Denies throat swelling and Denies tongue swelling Physical Exam Vital Signs: Last Vital Signs Pulse 85 05/24/23 12:11 BP 99/55 L 05/24/23 12:11 BMI result Body Mass Index 24.3 Const General: cooperative, no acute distress, well developed and well groomed Nutritional Appearance: average body habitus and well nourished Orientation/consciousness: oriented to person, oriented to place and oriented to time Limitations: No language barrier HEENT Head: Yes normocephalic and Yes atraumatic Eyes General: appearance normal, both eyes and all related structures Pupils: Equal, round and reactive pupils present Neck Neck: Yes normal visual inspection and Yes no lymphadenopathy Thyroid: Thyroid normal Resp Effort & Inspection: normal respiratory effort and able to speak in complete sentences Auscultation: clear to auscultation bilaterally Cardio Rate: regular rate Rhythm: regular rhythm Heart sounds: Normal, physiologic split S2 sound present Peripheral pulses: radial pulses present and posterior tibial pulses present GI Inspection: No distended, No Abdominal panniculus present and Yes obesity Palpation (GI): Soft to palpation, nontender, no guarding, not rigid and No hepatosplenomegaly present Percussion: Yes normal to percussion Auscultation: normal bowel sounds Rectal Exam - Female: deferred Skin General skin exam: no rashes or lesions noted, turgor normal, skin not dry, no jaundice, No spider nevi and no striae Rashes: no rashes Nails: normal Neuro General: oriented to person, oriented to place and oriented to time Cranial nerves: Yes Equal, round and reactive pupils present and Yes Normal hearing present Speech: No Abnormal speech present Extrem General: Yes normal to inspection, No clubbing, No cyanosis and No edema Psych Appearance: grossly normal and well kempt Mental Status: mental status grossly normal Speech and movement: Normal speech and movement present Affect: normal affect Attitude: cooperative Thought process: Normal thought process present and not confabulating Thought content: Normal thought content present Insight: Limited insight present (Psych) Judgement: Limited judgement present (Psych) Results Reviewed Results Reviewed: Laboratory Tests 01/18/23 16:24 WBC 6.7 RBC 4.16 L Hgb 11.8 L Hct 36.8 L MCV 88.5 Plt Count 321 Estimated GFR 52 Total Bilirubin 0.2 AST 19 ALT 12 Alkaline Phosphatase 111 TSH 1.47 Free T4 1.00 Assessment & Plan Assessment & Plan (1) Diarrhea: Code(s): R19.7 - Diarrhea, unspecified Category: Medical (2) Tubular adenoma of colon: Comment: 2020 scope 2 quite large polyps repeat in 3 years Code(s): D12.6 - Benign neoplasm of colon, unspecified Category: Medical (3) Alcohol abuse: Comment: Quit drinking in 2020 so far as of 05/2023 she is maintained her sobriety Code(s): F10.10 - Alcohol abuse, uncomplicated Category: Medical (4) Upper abdominal pain: Code(s): R10.10 - Upper abdominal pain, unspecified Category: Medical (5) Pre-op examination: Code(s): Z01.818 - Encounter for other preprocedural examination Category: Medical Plan THE PATIENT'S COLONOSCOPY WAS 10/2020 SO SHE IS DUE FOR REPEAT. She was initially seen by Rebeka Lyons and mistakenly put on my schedule after her colonoscopy follow-up at that time. While she was scheduled just for her repeat colonoscopy apparently she has been having trouble with diarrhea for the past couple of weeks.BUT then she says that this has been a problem for 4-5 years. She very rarely has solid BM's and she has frequent explosive diarrhea. She has tried Imodium and she was recently prescribed Benefiber w/o any help and it made her more uncomfortable. She been tested in the past for RAST allergies and none were found. She has had at least 2 colonoscopies with no severe abnormal findings. There is no family history of diarrheal syndromes or food allergies that she is aware of. She has never had her gallbladder removed. Her mother had GB problems and had a cholecystectomy. She stopped drinking ETOH after seeing me in 2020 and even completed a course in rehab. I congratulate her on this wonderful and quite large step to improve her health! She had a recent cardiac work up that was negative. She has asthma and COPD that are well controlled, no cardiac problems. No ID problems. She had large polyps with her 2020 scope she does not know fi there is any FHX of CRC or polyps. Trial bentyl rov 4 weeks Orders: Orders Transglutaminase Ab IgG Today R19.7 - Diarrhea, unspecified Pancreatic Elastase-1 Today R19.7 - Diarrhea, unspecified US abdomen complete Today R10.10 - Upper abdominal pain, unspecified, R19.7 - Diarrhea, unspecified Colonoscopy - GI Use Only Today D12.6 - Benign neoplasm of colon, unspecified, F10.10 - Alcohol abuse, uncomplicated, Z01.818 - Encounter for other preprocedural examination Transglutaminase IgA Today R19.7 - Diarrhea, unspecified Rast Allergen Today R19.7 - Diarrhea, unspecified C Reactive Protein Today R19.7 - Diarrhea, unspecified Calprotectin, Fecal Today R19.7 - Diarrhea, unspecified Medications: New peg 3350-electrolytes 236-22.74-6.74 -5.86 gram (Golytely) until fecal effluent is clear; do not exceed a total volume of 2,000 mL 240 mL PO Q10M 4,000 mL 0RF 1 day Z12.11 - Encounter for screening for malignant neoplasm of colon bisacodyl (Dulcolax (bisacodyl)) 10 mg (2 x 5 mg) PO BEDTIME 4 tabs 0RF 2 days dicyclomine 20 mg PO QID 120 tabs 6RF 30 days R19.7 - Diarrhea, unspecified Discontinued ondansetron HCl Discontinued Reason: Patient Completed Course 4 mg PO Q8H 3 days PRN 15 tabs 0RF nausea and vomiting nitrofurantoin monohyd/m-cryst 100 mg (Macrobid) must administer with a meal/food Discontinued Reason: Patient Completed Course 100 mg PO BID 7 days 14 caps 0RF
[2023-05-24 12:11] VITALS: BP 99/55; PULSE 85; BMI 24.3
== END 2023-05-24 12:52 | disposition home or self-care (01) ==
LOC: HO.HGI 12:10
PROVIDERS: PCP Family Medicine; Visit Provider Nurse Practitioner
DX: R19.7 Diarrhea, unspecified (principal); D12.6 Benign neoplasm of colon, unspecified; F10.10 Alcohol abuse, uncomplicated; R10.10 Upper abdominal pain, unspecified; Z01.818 Encounter for other preprocedural examination
CPT/HCPCS: 99214

== ENCOUNTER 2023-05-24 12:10 | Outpatient (REF) | payer MEDICARE, SELFPAY ==
[2023-05-24 13:55] LABS: C Reactive Protein 0.12 mg/dL (< or = 0.50)
[2023-05-25 20:28] LABS: Transglutaminase Ab IgG <1.0 U/mL; Transglutaminase IgA <1.0 U/mL
== END 2023-05-24 12:11 | disposition home or self-care (01) ==
LOC: HO.LAB 12:10
PROVIDERS: PCP Family Medicine; Visit Provider Nurse Practitioner
DX: R19.7 Diarrhea, unspecified (principal); Z91.09 Other allergy status, other than to drugs and biological substances
CPT/HCPCS: 36415; 86003; 86140; 86364; 99212

== ENCOUNTER 2023-05-28 16:12 | Outpatient (REF) | payer MEDICARE, SELFPAY ==
[2023-05-28 16:29] LABS: MANUAL DIFF FLAG NO
[2023-05-28 17:03] LABS: Basophils Absolute Auto 0.1 X10*3/uL (0.0-0.2); Basophils Percent Auto 0.9 % (0-2); Eosinophils Absolute Auto 0.1 X10*3/uL (0.0-0.4); Eosinophils Percent Auto 1.3 % (0-4); Hematocrit 36.5 % (37.0-47.0); Hemoglobin 11.9 g/dl (12.0-16.0); Imm Gran Abs Auto 0.03 X10*3/uL (0.00-0.03); Imm Gran Pct Auto 0.3 % (0.0-0.4); Lymphocytes Absolute Auto 1.9 X10*3/uL (1.2-4.9); Lymphocytes Percent Auto 20.8 % (20-40); Mean Corpuscular HGB Conc 32.6 g/dl (31.0-35.0); Mean Corpuscular Hemoglobin 28.3 pg (27.0-33.0); Mean Corpuscular Volume 86.9 fL (80.0-98.0); Mean Platelet Volume 10.5 fL (9.4-12.3); Monocytes Absolute Auto 0.5 X10*3/uL (0.1-1.2); Monocytes Percent Auto 5.6 % (2-11); Neutrophils Absolute Auto 6.4 x10*3/uL (2.0-8.3); Neutrophils Percent Auto 71.1 % (45-73); Platelet Count 298 X10*3/uL (160-400); Red Cell Distribution Width 15.8 % (11.0-16.0); White Blood Count 9.1 X10*3/uL (4.8-10.8)
[2023-05-28 17:28] LABS: Alanine Aminotransferase 9 U/L (0-31); Albumin Level 4.4 g/dL (3.5-5.0); Alkaline Phosphatase 91 U/L (39-117); Anion Gap 11 (12-20); Aspartate Amino Transferase 15 U/L (5-31); Bilirubin Total 0.3 mg/dL (0.0-1.0); Blood Urea Nitrogen 20 mg/dL (9-16); Calcium 9.7 mg/dL (8.4-10.2); Carbon Dioxide 20 mmol/L (22-29); Chloride 112 mmol/L (96-108); Cholesterol 170 mg/dL (<200); Estimated Glomerular Filt Rate 46; Glucose Fasting 97 mg/dL (60-99); HDL Cholesterol 63 mg/dL (>40); LDL Cholesterol Calculated 92 mg/dL (<100); Potassium 4.8 mmol/L (3.3-5.1); Sodium 138 mmol/L (135-145); Total Protein 7.4 g/dL (6.5-8.0); Triglycerides 78 mg/dL (<150)
[2023-05-28 18:02] LABS: Appearance Urine Clear; Color Urine Yellow; Glucose Urine UA Negative (Negative); Leukocyte Esterase Urine Negative (Negative); Nitrite Urine Negative (Negative); PH 5.5 (5.0-9.0); Urine Blood Negative (Negative); Urine Ketones Trace mg/dL (Negative); Urine Protein Negative (Neg-Trace)
== END 2023-05-28 16:13 | disposition home or self-care (01) ==
LOC: HO.LAB 16:12
PROVIDERS: PCP Family Medicine; Visit Provider Family Medicine
DX: Z00.00 Encounter for general adult medical examination without abnormal findings (principal); D64.9 Anemia, unspecified; R39.9 Unspecified symptoms and signs involving the genitourinary system
CPT/HCPCS: 36415; 80053; 80061; 81003; 85025

== ENCOUNTER 2023-05-29 15:50 | Outpatient (REF) | payer MEDICARE, SELFPAY ==
[2023-06-05 15:08] LABS: Pancreatic Elastase-1 >500 mcg/g
[2023-06-06 15:24] LABS: Calprotectin, Fecal 133 mcg/g
== END 2023-05-29 15:51 | disposition home or self-care (01) ==
LOC: HO.LAB 15:50
PROVIDERS: Visit Provider Nurse Practitioner
DX: R19.7 Diarrhea, unspecified (principal)
CPT/HCPCS: 82656; 83993

== ENCOUNTER 2023-05-30 10:55 | Outpatient (AMB) | payer MEDICARE, SELFPAY ==
[2023-05-30 11:00] VITALS: BP 100/60; PULSE 78; RESP 14; TEMP 36.4; O2SAT 99; BMI 24.2
--- NOTE | 2023-05-30 11:00 | MHC.PC.OV ---
Vital Signs 05/30/23 11:00 Height 5 ft 6 in Weight 150 lb BMI 24.2 BP 100/60 Blood Pressure Location Lt brachial Position Sitting Respiration 14 Pulse 78 Pulse Source Pulse Oximeter Temp 97.6 F Temp Source Temporal Artery Scan Pulse Oximetry (%) 99 Oxygen Delivery Method Room Air Intake Visit Reasons: f/u mild anemia, hypercholesterolemia Intake Note: Patient has no concerns when it comes to her anemia or cholesterol but is concerned about a pinched nerve. Let patient know that if not addressed today she can schedule a follow up for that issue. Patient needs refill on Albuterol and Atorvastatin. Candlemaker Required: No Accompanied by: Self / Same As Patient Allergies aspirin [ASA] Allergy (Severe, Verified 05/30/23 11:08) Swelling, facial TREE POLLEN Allergy (Intermediate, Uncoded 05/24/23 12:16) Nasal congestion Medication List - Last Reconciled 05/30/23 by Ladarius Nelson MD acetaminophen ER (Tylenol 8 Hour) 650 mg PO Q8H PRN albuterol sulfate 90 mcg/actuation (ProAir HFA) 2 puffs inhalation Q4-6H PRN 1 month amlodipine 5 mg PO DAILY atorvastatin 10 mg PO BEDTIME 30 days bisacodyl (Dulcolax (bisacodyl)) 10 mg (2 x 5 mg) PO BEDTIME 2 days dicyclomine 20 mg PO QID 30 days hydroxyzine HCl 25 mg PO BID PRN 30 days levothyroxine 88 mcg PO DAILY 30 days lisinopril 40 mg PO DAILY 90 days loratadine 10 mg PO DAILY melatonin 5 mg PO BEDTIME PRN 30 days peg 3350-electrolytes 236-22.74-6.74 -5.86 gram (Golytely) 240 mL PO Q10M 1 day polyethylene glycol 400 0.25% drps ophthalmic (eye) sertraline (Zoloft) 150 mg (1.5 x 100 mg) PO DAILY 30 days trazodone 50 - 100 mg (1 - 2 x 50 mg) PO BEDTIME PRN 30 days Tobacco use date assessed: 03/16/23 Fall risk assessment: 2 + Falls in past year Last assessed Fall Risk: 05/30/23 Dental Screening Dental Screen Date: 02/28/23 HPI f/u mild anemia, hypercholesterolemia HPI Details 67 y/o female presents to f/u HLD, mild anemia. Had started her on artovastatin. Labs were drawn 05/28/23. Reviewed labs with pt. Ongoing mild anemia. Triglycerides 78. TC 170. LDL 92, improved from 154. HDL 63. Pt has complaints of neck/shoulder pain. [facility] Medical History Postprandial diarrhea Toe pain, right Abnormal x-ray Annual physical exam Right anterior shoulder pain Abnormal x-ray of bone Immunization counseling Abdominal pain Left foot pain Rectal bleeding Fall Left knee pain Left shoulder pain Left wrist pain Screening for breast cancer Screening for colon cancer Adult general medical exam Stye H/O heartburn Wears dentures Anxiety and depression Hx of thyroid disease HTN (hypertension) COPD (chronic obstructive pulmonary disease) History of colon polyps Surgical History Hx of arthroscopic knee surgery Hx of colonoscopy History of orbit decompression History of palate surgery Family History Mother No problems noted. Father No problems noted. Other Substance use disorder Social History Household Members: Family Housing: House Alcohol intake: current Alcohol intake frequency: 3 or more drinks per day Alcohol type: wine Patient Tobacco Use Status: Former Tobacco user e-Cigarette/Vaping Use: Currently Using Second Hand Smoke Exposure: No service: No Current occupational status: retired Current occupational exposures/hazards: No Cognitive needs: No Hearing needs: No Vision needs: Yes Questionnaire Thrive Questionnaire Date Thrive assessed: 02/28/23 ALKA-7 AMB Questionnaire ALKA-7 Date ALKA - 7 assessed: 02/28/23 Source: Developed by Drs. Juan Pablo Ramírez, Kari Richards, Morgan Alanis and colleagues, with an educational dahiana from [employer]. Review of Systems Const Denies chills, Denies fatigue, Denies fever(s), Denies headache(s) and Denies weakness ENT Denies dizziness and Denies headache(s) Card Denies dyspnea Resp Denies cough, Denies dyspnea, Denies wheezing and Denies other (shortness of breath) Musc Details: Neck/shoulder pain Denies numbness and Denies tingling Neuro Denies dizziness, Denies headache(s), Denies numbness, Denies tingling and Denies weakness Psych Denies anxiety and Denies depression Endo Denies fatigue Aller/Immun Denies wheezing Physical exam (Primary Care) Vital Signs: Last Vital Signs Temp 97.6 F 05/30/23 11:00 Pulse 78 05/30/23 11:00 Resp 14 05/30/23 11:00 BP 100/60 05/30/23 11:00 Pulse Ox 99 05/30/23 11:00 Oxygen Delivery Method Room Air 05/30/23 11:00 BMI result Body Mass Index 24.2 Tobacco/Smoking Status: Tobacco use Status Tobacco use date assessed 03/16/23 05/30/23 11:12 Patient Tobacco Use Status Former Tobacco user 05/30/23 11:12 Tobacco use type 03/27/23 16:06 e-Cigarette/Vaping Use Currently Using 05/30/23 11:12 Thrive Assessment: Date of Thrive Assessment Date Thrive assessed 02/28/23 05/30/23 11:12 Const General: well developed; No acute distress Nutritional Appearance: well nourished Orientation/consciousness: patient oriented x3 [facility] Head: Yes normocephalic and Yes atraumatic Eyes General: appearance normal, both eyes and all related structures Pupils: Equal, round and reactive pupils present EOM: EOMs intact bilaterally Resp Effort & Inspection: normal respiratory effort Neuro General: patient oriented x3 and gait normal Cranial nerves: Yes Equal, round and reactive pupils present Psych Affect: normal affect Assessment and Plan Assessment & Plan (1) Hypercholesterolemia: Code(s): E78.00 - Pure hypercholesterolemia, unspecified Plan: Lipids?much?improved?on?atorvastatin?10?mg?daily. Continue?current?medication (2) Mild anemia: Code(s): D64.9 - Anemia, unspecified Plan: Very?mild?stable?normocytic?anemia Her?other?cell?lines?are?within?normal?limits We?can?monitor?this (3) Renal insufficiency: Code(s): N28.9 - Disorder of kidney and ureter, unspecified Plan: GFR?mildly?decreased. Patient?appears?dehydrated?as?well Encouraged?increased?hydration Will?monitor (4) Cervicalgia: Code(s): M54.2 - Cervicalgia Plan: Right?neck?and?shoulder?pain?and?tension?at?trapezius?muscle. Start?physical?therapy Ice/heat Tylenol (5) Shoulder pain: Code(s): M25.519 - Pain in unspecified shoulder Plan: As?above (6) Screening for osteoporosis: Code(s): Z13.820 - Encounter for screening for osteoporosis Plan: She?has?her?next?bone?density?scheduled?in?January Orders: Orders PT Evaluation and Treatment Today M25.519 - Pain in unspecified shoulder, M54.2 - Cervicalgia Medications: Changed From atorvastatin 10 mg PO BEDTIME 30 days 30 tabs 2RF To atorvastatin 10 mg PO BEDTIME 90 days 90 tabs 3RF Coding Level of Care Code Est Pt Level 4 (10166) Diagnoses Hypercholesterolemia E78.00 Mild anemia D64.9 Renal insufficiency N28.9 Cervicalgia M54.2 Shoulder pain M25.519 Screening for osteoporosis Z13.820
== END 2023-05-30 12:07 | disposition home or self-care (01) ==
PROVIDERS: PCP Family Medicine; Visit Provider Family Medicine
DX: E78.00 Pure hypercholesterolemia, unspecified (principal); D64.9 Anemia, unspecified; N28.9 Disorder of kidney and ureter, unspecified; M54.2 Cervicalgia; M25.519 Pain in unspecified shoulder; Z13.820 Encounter for screening for osteoporosis
CPT/HCPCS: 99214

== ENCOUNTER 2023-06-08 08:37 | Outpatient (REF) | payer MEDICARE, SELFPAY ==
--- NOTE | ~2023-06-08 | US_ITS ---
EXAMINATION: US ABDOMEN COMPLETE CLINICAL INFORMATION: Diarrhea, unspecified. COMPARISON: Abdomen ultrasound complete 08/25/2020. TECHNIQUE: Real-time imaging of the abdominal viscera. Limited visualization due to bowel gas. FINDINGS: PANCREAS: Limited visualization of pancreatic tail and head. Imaged portion of pancreatic body is unremarkable. ABDOMINAL AORTA: Limited visualization. Imaged portions are unremarkable. INFERIOR VENA CAVA: Visualized portions are normal. LIVER: Mildly heterogeneous echotexture. Correlation with liver function tests recommended. Limited visualization due to bowel gas. GALLBLADDER: No gallstones. No gallbladder wall thickening. COMMON BILE DUCT: Normal in caliber measuring 0.39 cm in diameter. RIGHT KIDNEY: No hydronephrosis. No renal calculi. Limited visualization. The kidney measures 8.9 cm in maximum dimension. LEFT KIDNEY: No hydronephrosis. No renal calculi. Limited visualization. The kidney measures 8.8 cm in maximum dimension. SPLEEN: Normal. The spleen measures 9.5 cm in maximum dimension. FREE FLUID: None. US/US abdomen complete IMPRESSION: 1. Mildly heterogeneous hepatic echotexture. Correlation with liver function tests recommended. 2. Limited visualization due to bowel gas.
== END 2023-06-08 08:38 | disposition home or self-care (01) ==
LOC: HO.US 08:37
PROVIDERS: PCP Family Medicine; Visit Provider Nurse Practitioner
DX: R10.10 Upper abdominal pain, unspecified (principal); R19.7 Diarrhea, unspecified
CPT/HCPCS: 76700

== ENCOUNTER 2023-06-21 10:52 | Outpatient (AMB) | payer MEDICARE, SELFPAY ==
--- NOTE | 2023-06-21 10:56 | A.OFFVIS_ITS ---
Vital Signs 06/21/23 10:57 06/21/23 11:07 Height 5 ft 6 in Weight 149 lb 14.629 oz BMI 24.2 BP 77/46 L 82/43 L Blood Pressure Location Lt brachial Rt brachial Position Sitting Sitting Pulse 75 75 Intake Visit Reasons: 4 week follow up Intake Note: Patient returns in follow up today for follow up of labs and US. CC: Patient states that she still having diarrhea but its a little bit better. She reports her stomach is usually sore , and acid reflux. She states she was already scheduled for her colonoscopy. Pompom Maker Required: No Copywriting Intern: Copywriting Intern offered & declined Accompanied by: Self / Same As Patient Allergies aspirin [ASA] Allergy (Severe, Verified 07/05/23 13:36) Swelling, facial Seasonal Allergies Allergy (Severe, Verified 07/05/23 13:36) Unknown TREE POLLEN Allergy (Intermediate, Uncoded 05/24/23 12:16) Nasal congestion HPI HPI 4 week follow up: Details: Assessment & Plan (1) Diarrhea: Code(s): R19.7 - Diarrhea, unspecified Category: Medical (2) Tubular adenoma of colon: Comment: 2020 scope 2 quite large polyps repeat in 3 years Code(s): D12.6 - Benign neoplasm of colon, unspecified Category: Medical (3) Alcohol abuse: Comment: Quit drinking in 2020 so far as of 05/2023 she is maintained her sobriety Code(s): F10.10 - Alcohol abuse, uncomplicated Category: Medical (4) Upper abdominal pain: Code(s): R10.10 - Upper abdominal pain, unspecified Category: Medical (5) Pre-op examination: Code(s): Z01.818 - Encounter for other preprocedural examination Category: Medical Plan THE PATIENT'S COLONOSCOPY WAS 10/2020 SO SHE IS DUE FOR REPEAT. She was initially seen by Rebeka Lyons and mistakenly put on my schedule after her colonoscopy follow-up at that time. While she was scheduled just for her repeat colonoscopy apparently she has been having trouble with diarrhea for the past couple of weeks.BUT then she says that this has been a problem for 4-5 years. She very rarely has solid BM's and she has frequent explosive diarrhea. She has tried Imodium and she was recently prescribed Benefiber w/o any help and it made her more uncomfortable. She been tested in the past for RAST allergies and none were found. She has had at least 2 colonoscopies with no severe abnormal findings. There is no family history of diarrheal syndromes or food allergies that she is aware of. She has never had her gallbladder removed. Her mother had GB problems and had a cholecystectomy. She stopped drinking ETOH after seeing me in 2020 and even completed a course in rehab. I congratulate her on this wonderful and quite large step to improve her health! She had a recent cardiac work up that was negative. She has asthma and COPD that are well controlled, no cardiac problems. No ID problems. She had large polyps with her 2020 scope she does not know fi there is any FHX of CRC or polyps. Trial bentyl rov 4 weeks Orders: Orders Transglutaminase Ab IgG Today R19.7 - Diarrhea, unspecified Pancreatic Elastase-1 Today R19.7 - Diarrhea, unspecified US abdomen complete Today R10.10 - Upper abdominal pain, unspecified, R19.7 - Diarrhea, unspecified Colonoscopy - GI Use Only Today D12.6 - Benign neoplasm of colon, unspecified, F10.10 - Alcohol abuse, uncomplicated, Z01.818 - Encounter for other preprocedural examination Transglutaminase IgA Today R19.7 - Diarrhea, unspecified Rast Allergen Today R19.7 - Diarrhea, unspecified C Reactive Protein Today R19.7 - Diarrhea, unspecified Calprotectin, Fecal Today R19.7 - Diarrhea, unspecified Medications: New peg 3350-electrolytes 236-22.74-6.74 -5.86 gram (Golytely) until fecal effluent is clear; do not exceed a total volume of 2,000 mL 240 mL PO Q10M 4,000 mL 0RF 1 day Z12.11 - Encounter for screening for malignant neoplasm of colon bisacodyl (Dulcolax (bisacodyl)) 10 mg (2 x 5 mg) PO BEDTIME 4 tabs 0RF 2 days dicyclomine 20 mg PO QID 120 tabs 6RF 30 days R19.7 - Diarrhea, unspecified Discontinued ondansetron HCl Discontinued Reason: Patient Completed Course 4 mg PO Q8H 3 days PRN 15 tabs 0RF nausea and vomiting nitrofurantoin monohyd/m-cryst 100 mg (Macrobid) must administer with a meal/food Discontinued Reason: Patient Completed Course 100 mg PO BID 7 days 14 caps 0RF LABS: Laboratory Tests 05/24/23 05/29/23 13:19 15:50 C-Reactive Protein 0.12 Stool Calprotectin 133 H Stool Pancreat Elastase >500 Tiss Transglutamin IgG <1.0 Tiss Transglutamin IgA <1.0 RAST PANEL SHOWS NO SIGNIFICANT FOOD ALLERGIES ULTRASOUND OF THE ABDOMEN 06/13/23 FINDINGS: PANCREAS: Limited visualization of pancreatic tail and head. Imaged portion of pancreatic body is unremarkable. ABDOMINAL AORTA: Limited visualization. Imaged portions are unremarkable. INFERIOR VENA CAVA: Visualized portions are normal. LIVER: Mildly heterogeneous echotexture. Correlation with liver function tests recommended. Limited visualization due to bowel gas. GALLBLADDER: No gallstones. No gallbladder wall thickening. COMMON BILE DUCT: Normal in caliber measuring 0.39 cm in diameter. RIGHT KIDNEY: No hydronephrosis. No renal calculi. Limited visualization. The kidney measures 8.9 cm in maximum dimension. LEFT KIDNEY: No hydronephrosis. No renal calculi. Limited visualization. The kidney measures 8.8 cm in maximum dimension. SPLEEN: Normal. The spleen measures 9.5 cm in maximum dimension. FREE FLUID: None. US/US abdomen complete IMPRESSION: 1. Mildly heterogeneous hepatic echotexture. Correlation with liver function tests recommended. 2. Limited visualization due to bowel gas. COLONOSCOPY 11/30/2023 BIOPSY TODAY'S VISIT She has been having diarrhea recently. She also took 1 of the Dulcolax because she was having trouble producing a bowel sample, this was supposed to be for colonoscopy prep but given her diarrhea she probably will need it any way along with the PEG. She tends to have solids mixed with watery diarrhea about 3 times a day. She has a soreness that is mostly on the right side but sometimes also manifest on the left side of the belly. We reviewed the labs and because she has an elevated fecal calprotectin I think were going to give her a trial of prednisone to see if this affects her diarrhea. Many things can cause inflammation in the GI system but it does not appear to be food allergies from the testing nor an infectious etiology. It is entirely possible this was also just from the bisacodyl. She was educated as to the potential side effects of the prednisone and she should just stop it if she can not tolerate it. She was only taking the dicyclomine twice a day because she thought she had to eat to take it. This is not the case and she will try to take it more aggressively it 4 times a day. Return office visit in 2 weeks [facility] Medical History Pre-op examination Screening for osteoporosis Alcohol dependence Postprandial diarrhea Toe pain, right Abnormal x-ray Annual physical exam Right anterior shoulder pain Abnormal x-ray of bone Immunization counseling Abdominal pain Left foot pain Rectal bleeding Fall Left knee pain Left shoulder pain Left wrist pain Screening for breast cancer Screening for colon cancer Adult general medical exam Stye H/O heartburn Wears dentures Anxiety and depression Hx of thyroid disease HTN (hypertension) COPD (chronic obstructive pulmonary disease) History of colon polyps Surgical History Hx of arthroscopic knee surgery Hx of colonoscopy History of orbit decompression History of palate surgery Family History Mother No problems noted. Father No problems noted. Other Substance use disorder Social History Household Members: Family Housing: House Alcohol intake: current Alcohol intake frequency: 3 or more drinks per day Alcohol type: wine Patient Tobacco Use Status: Former Tobacco user e-Cigarette/Vaping Use: Currently Using Second Hand Smoke Exposure: No service: No Current occupational status: retired Current occupational exposures/hazards: No Cognitive needs: No Hearing needs: No Vision needs: Yes Review of Systems Const Denies fatigue, Denies fever(s), Denies night sweats, Denies poor appetite and Denies weight loss ENT Reports Normal hearing present, Denies dental pain, Denies dysphagia, Denies hearing loss, Denies mouth pain, Denies odynophagia, Denies throat swelling, Denies tongue swelling and Reports other (Dentition adequate) Card Reports no additional complaints Resp Reports no additional complaints GI Details: Reports abdominal pain, Denies melena, Denies bloating, Denies hematochezia, Denies constipation, Denies GI cramping, Denies dysphagia, Denies excessive flatus, Denies early satiety, Denies heartburn, Reports diarrhea, Denies nausea, Denies odynophagia, Denies vomiting and Denies hematemesis Skin/Breast Denies pruritus, Denies lesions, Denies rash and Denies jaundice Neuro Reports Normal hearing present and Denies Abnormal speech present Endo Denies fatigue Aller/Immun Denies throat swelling and Denies tongue swelling Physical Exam Vital Signs: Last Vital Signs Pulse 75 06/21/23 11:07 BP 82/43 L 06/21/23 11:07 BMI result Body Mass Index 24.2 Const General: cooperative, no acute distress, well developed and well groomed Nutritional Appearance: well nourished Orientation/consciousness: oriented to person, oriented to place and oriented to time Limitations: No language barrier HEENT Head: Yes normocephalic and Yes atraumatic Eyes General: appearance normal, both eyes and all related structures Pupils: Equal, round and reactive pupils present Neck Neck: Yes normal visual inspection and Yes no lymphadenopathy Thyroid: Thyroid normal Resp Effort & Inspection: normal respiratory effort and able to speak in complete sentences Auscultation: clear to auscultation bilaterally Cardio Rate: regular rate Rhythm: regular rhythm Heart sounds: Normal, physiologic split S2 sound present Peripheral pulses: radial pulses present and posterior tibial pulses present GI Inspection: No distended and No Abdominal panniculus present Palpation (GI): Soft to palpation, nontender, no guarding, not rigid and No hepatosplenomegaly present Percussion: Yes normal to percussion Auscultation: normal bowel sounds Rectal Exam - Female: deferred Skin General skin exam: no rashes or lesions noted, turgor normal, skin not dry, no jaundice, No spider nevi and no striae Rashes: no rashes Nails: normal Neuro General: oriented to person, oriented to place and oriented to time Cranial nerves: Yes Equal, round and reactive pupils present and Yes Normal hearing present Speech: No Abnormal speech present Extrem General: Yes normal to inspection, No clubbing, No cyanosis and No edema Psych Appearance: grossly normal and well kempt Mental Status: mental status grossly normal Speech and movement: Normal speech and movement present Affect: normal affect Attitude: cooperative Thought process: Normal thought process present and not confabulating Thought content: Normal thought content present Insight: Limited insight present (Psych) Judgement: Limited judgement present (Psych) Results Reviewed Results Reviewed: Laboratory Tests 05/24/23 05/29/23 13:19 15:50 C-Reactive Protein 0.12 Stool Calprotectin 133 H Stool Pancreat Elastase >500 Tiss Transglutamin IgG <1.0 Tiss Transglutamin IgA <1.0 RAST PANEL SHOWS NO SIGNIFICANT FOOD ALLERGIES ULTRASOUND OF THE ABDOMEN 06/13/23 FINDINGS: PANCREAS: Limited visualization of pancreatic tail and head. Imaged portion of pancreatic body is unremarkable. ABDOMINAL AORTA: Limited visualization. Imaged portions are unremarkable. INFERIOR VENA CAVA: Visualized portions are normal. LIVER: Mildly heterogeneous echotexture. Correlation with liver function tests recommended. Limited visualization due to bowel gas. GALLBLADDER: No gallstones. No gallbladder wall thickening. COMMON BILE DUCT: Normal in caliber measuring 0.39 cm in diameter. RIGHT KIDNEY: No hydronephrosis. No renal calculi. Limited visualization. The kidney measures 8.9 cm in maximum dimension. LEFT KIDNEY: No hydronephrosis. No renal calculi. Limited visualization. The kidney measures 8.8 cm in maximum dimension. SPLEEN: Normal. The spleen measures 9.5 cm in maximum dimension. FREE FLUID: None. US/US abdomen complete IMPRESSION: 1. Mildly heterogeneous hepatic echotexture. Correlation with liver function tests recommended. 2. Limited visualization due to bowel gas Assessment & Plan Assessment & Plan (1) Diarrhea: Code(s): R19.7 - Diarrhea, unspecified Category: Medical (2) Upper abdominal pain: Code(s): R10.10 - Upper abdominal pain, unspecified Category: Medical (3) Tubular adenoma of colon: Comment: 2020 scope 2 quite large polyps repeat in 3 years Code(s): D12.6 - Benign neoplasm of colon, unspecified Category: Medical (4) Elevated fecal calprotectin: Code(s): R19.5 - Other fecal abnormalities Category: Medical Plan She has been having diarrhea recently. She also took 1 of the Dulcolax because she was having trouble producing a bowel sample, this was supposed to be for colonoscopy prep but given her diarrhea she probably will need it any way along with the PEG. She tends to have solids mixed with watery diarrhea about 3 times a day. She has a soreness that is mostly on the right side but sometimes also manifest on the left side of the belly. We reviewed the labs and because she has an elevated fecal calprotectin I think were going to give her a trial of prednisone to see if this affects her diarrhea. Many things can cause inflammation in the GI system but it does not appear to be food allergies from the testing nor an infectious etiology. It is entirely possible this was also just from the bisacodyl. She was educated as to the potential side effects of the prednisone and she should just stop it if she can not tolerate it. She was only taking the dicyclomine twice a day because she thought she had to eat to take it. This is not the case and she will try to take it more aggressively it 4 times a day. Return office visit in 2 weeks Medications: New prednisone 2 tab day 1 then 1 tab for 3 days orally daily; 5 tabs 0RF R19.5 - Other fecal abnormalities Coding Level of Care Code Est Pt Level 3 (48529) Diagnoses Diarrhea R19.7 Upper abdominal pain R10.10 Tubular adenoma of colon D12.6 Elevated fecal calprotectin R19.5
[2023-06-21 10:57] VITALS: BP 77/46; PULSE 75; BMI 24.2
[2023-06-21 11:07] VITALS: BP 82/43; PULSE 75
== END 2023-06-21 11:31 | disposition home or self-care (01) ==
PROVIDERS: PCP Family Medicine; Visit Provider Nurse Practitioner
DX: R19.7 Diarrhea, unspecified (principal); R10.10 Upper abdominal pain, unspecified; D12.6 Benign neoplasm of colon, unspecified; R19.5 Other fecal abnormalities
CPT/HCPCS: 99213

== ENCOUNTER → 2023-06-21 10:52 | Outpatient (BNVA) | payer MEDICARE, SELFPAY | PROVIDERS: PCP Family Medicine; Visit Provider Nurse Practitioner | DX: R19.7 Diarrhea, unspecified (principal); R10.10 Upper abdominal pain, unspecified; D12.6 Benign neoplasm of colon, unspecified; R19.5 Other fecal abnormalities | CPT/HCPCS: 99212 ==

== ENCOUNTER 2023-07-05 13:26 | Outpatient (AMB) | payer MEDICARE, SELFPAY ==
--- NOTE | 2023-07-05 12:57 | MHC.OFFVIS ---
Vital Signs 07/05/23 13:34 Height 5 ft 3 in Weight 150 lb 12.739 oz BMI 26.7 BP 96/51 L Blood Pressure Location Rt brachial Position Sitting Pulse 69 Intake Visit Reasons: 2 week follow up Intake Note: Marzena presents to in office visit today in follow up of diarrhea. CC: Patient states that she continues having diarrhea. She states that stools are slightly solid, and stomach pains are better with medication. Allergies aspirin [ASA] Allergy (Severe, Verified 07/05/23 13:36) Swelling, facial Seasonal Allergies Allergy (Severe, Verified 07/05/23 13:36) Unknown TREE POLLEN Allergy (Intermediate, Uncoded 05/24/23 12:16) Nasal congestion HPI HPI 2 week follow up: Details: Assessment & Plan (1) Diarrhea: Code(s): R19.7 - Diarrhea, unspecified Category: Medical (2) Tubular adenoma of colon: Comment: 2020 scope 2 quite large polyps repeat in 3 years Code(s): D12.6 - Benign neoplasm of colon, unspecified Category: Medical (3) Alcohol abuse: Comment: Quit drinking in 2020 so far as of 05/2023 she is maintained her sobriety Code(s): F10.10 - Alcohol abuse, uncomplicated Category: Medical (4) Upper abdominal pain: Code(s): R10.10 - Upper abdominal pain, unspecified Category: Medical (5) Pre-op examination: Code(s): Z01.818 - Encounter for other preprocedural examination Category: Medical Plan THE PATIENT'S COLONOSCOPY WAS 10/2020 SO SHE IS DUE FOR REPEAT. She was initially seen by Rebeka Lyons and mistakenly put on my schedule after her colonoscopy follow-up at that time. While she was scheduled just for her repeat colonoscopy apparently she has been having trouble with diarrhea for the past couple of weeks.BUT then she says that this has been a problem for 4-5 years. She very rarely has solid BM's and she has frequent explosive diarrhea. She has tried Imodium and she was recently prescribed Benefiber w/o any help and it made her more uncomfortable. She been tested in the past for RAST allergies and none were found. She has had at least 2 colonoscopies with no severe abnormal findings. There is no family history of diarrheal syndromes or food allergies that she is aware of. She has never had her gallbladder removed. Her mother had GB problems and had a cholecystectomy. She stopped drinking ETOH after seeing me in 2020 and even completed a course in rehab. I congratulate her on this wonderful and quite large step to improve her health! She had a recent cardiac work up that was negative. She has asthma and COPD that are well controlled, no cardiac problems. No ID problems. She had large polyps with her 2020 scope she does not know fi there is any FHX of CRC or polyps. Trial bentyl rov 4 weeks Orders: Orders Transglutaminase Ab IgG Today R19.7 - Diarrhea, unspecified Pancreatic Elastase-1 Today R19.7 - Diarrhea, unspecified US abdomen complete Today R10.10 - Upper abdominal pain, unspecified, R19.7 - Diarrhea, unspecified Colonoscopy - GI Use Only Today D12.6 - Benign neoplasm of colon, unspecified, F10.10 - Alcohol abuse, uncomplicated, Z01.818 - Encounter for other preprocedural examination Transglutaminase IgA Today R19.7 - Diarrhea, unspecified Rast Allergen Today R19.7 - Diarrhea, unspecified C Reactive Protein Today R19.7 - Diarrhea, unspecified Calprotectin, Fecal Today R19.7 - Diarrhea, unspecified Medications: New peg 3350-electrolytes 236-22.74-6.74 -5.86 gram (Golytely) until fecal effluent is clear; do not exceed a total volume of 2,000 mL 240 mL PO Q10M 4,000 mL 0RF 1 day Z12.11 - Encounter for screening for malignant neoplasm of colon bisacodyl (Dulcolax (bisacodyl)) 10 mg (2 x 5 mg) PO BEDTIME 4 tabs 0RF 2 days dicyclomine 20 mg PO QID 120 tabs 6RF 30 days R19.7 - Diarrhea, unspecified Discontinued ondansetron HCl Discontinued Reason: Patient Completed Course 4 mg PO Q8H 3 days PRN 15 tabs 0RF nausea and vomiting nitrofurantoin monohyd/m-cryst 100 mg (Macrobid) must administer with a meal/food Discontinued Reason: Patient Completed Course 100 mg PO BID 7 days 14 caps 0RF LABS: Laboratory Tests 05/24/23 05/29/23 13:19 15:50 C-Reactive Protein 0.12 Stool Calprotectin 133 H Stool Pancreat Elastase >500 Tiss Transglutamin IgG <1.0 Tiss Transglutamin IgA <1.0 RAST report shows no significant food allergies ULTRASOUND OF THE ABDOMEN 06/13/23 FINDINGS: PANCREAS: Limited visualization of pancreatic tail and head. Imaged portion of pancreatic body is unremarkable. ABDOMINAL AORTA: Limited visualization. Imaged portions are unremarkable. INFERIOR VENA CAVA: Visualized portions are normal. LIVER: Mildly heterogeneous echotexture. Correlation with liver function tests recommended. Limited visualization due to bowel gas. GALLBLADDER: No gallstones. No gallbladder wall thickening. COMMON BILE DUCT: Normal in caliber measuring 0.39 cm in diameter. RIGHT KIDNEY: No hydronephrosis. No renal calculi. Limited visualization. The kidney measures 8.9 cm in maximum dimension. LEFT KIDNEY: No hydronephrosis. No renal calculi. Limited visualization. The kidney measures 8.8 cm in maximum dimension. SPLEEN: Normal. The spleen measures 9.5 cm in maximum dimension. FREE FLUID: None. US/US abdomen complete IMPRESSION: 1. Mildly heterogeneous hepatic echotexture. Correlation with liver function tests recommended. 2. Limited visualization due to bowel gas. COLONOSCOPY 11/30/2023 BIOPSY TODAY'S VISIT Described results, she is having some relief with the dicyclomine 4 times a day her pain is not as sharp and her stools are slightly more formed. However given the elevated stool calprotectin I think we should consider if IBD is part of the differential. It does not appear that she has an acute infection or food allergy contributing to the inflammation. We will get a [facility] IBD genetics and of course the colonoscopy may be helpful in clarifying this. In the meantime I think will try a course of budesonide and if this gives her a marked improvement will know were on the right track. She is also passing gas better to alleviate bloating with the bentyl. She still has trouble digesting nuts - this may improve with other foods if the dx id IBD. She is aware of her colonoscopy but it is not scheduled until November. Return office visit in 6-8 weeks to evaluate her response to the budesonide [facility] Medical History Pre-op examination Screening for osteoporosis Alcohol dependence Postprandial diarrhea Toe pain, right Abnormal x-ray Annual physical exam Right anterior shoulder pain Abnormal x-ray of bone Immunization counseling Abdominal pain Left foot pain Rectal bleeding Fall Left knee pain Left shoulder pain Left wrist pain Screening for breast cancer Screening for colon cancer Adult general medical exam Stye H/O heartburn Wears dentures Anxiety and depression Hx of thyroid disease HTN (hypertension) COPD (chronic obstructive pulmonary disease) History of colon polyps Surgical History Hx of arthroscopic knee surgery Hx of colonoscopy History of orbit decompression History of palate surgery Family History Mother No problems noted. Father No problems noted. Other Substance use disorder Social History Household Members: Family Housing: House Alcohol intake: current Alcohol intake frequency: 3 or more drinks per day Alcohol type: wine Patient Tobacco Use Status: Former Tobacco user e-Cigarette/Vaping Use: Currently Using Second Hand Smoke Exposure: No service: No Current occupational status: retired Current occupational exposures/hazards: No Cognitive needs: No Hearing needs: No Vision needs: Yes Review of Systems Const Denies fatigue, Denies fever(s), Denies night sweats, Denies poor appetite and Denies weight loss ENT Reports Normal hearing present, Denies dental pain, Denies dysphagia, Denies hearing loss, Denies mouth pain, Denies odynophagia, Denies throat swelling, Denies tongue swelling and Reports other (Dentition adequate) Card Reports no additional complaints Resp Reports no additional complaints GI Details: Denies abdominal pain, Denies melena, Reports bloating, Denies hematochezia, Denies constipation, Denies GI cramping, Denies dysphagia, Denies excessive flatus, Denies early satiety, Denies heartburn, Reports diarrhea, Denies nausea, Denies odynophagia, Denies vomiting and Denies hematemesis Skin/Breast Denies pruritus, Denies lesions, Denies rash and Denies jaundice Neuro Reports Normal hearing present and Denies Abnormal speech present Endo Denies fatigue Aller/Immun Denies throat swelling and Denies tongue swelling Physical Exam Vital Signs: Last Vital Signs Pulse 69 07/05/23 13:34 BP 96/51 L 07/05/23 13:34 BMI result Body Mass Index 26.7 Const General: cooperative, no acute distress, well developed and well groomed Nutritional Appearance: average body habitus and well nourished Orientation/consciousness: oriented to person, oriented to place and oriented to time Limitations: No language barrier and ambulation with walker HEENT Head: Yes normocephalic and Yes atraumatic Eyes General: appearance normal, both eyes and all related structures Pupils: Equal, round and reactive pupils present Neck Neck: Yes normal visual inspection and Yes no lymphadenopathy Thyroid: Thyroid normal Resp Effort & Inspection: normal respiratory effort and able to speak in complete sentences Auscultation: clear to auscultation bilaterally Cardio Rate: regular rate Rhythm: regular rhythm Heart sounds: Normal, physiologic split S2 sound present Peripheral pulses: radial pulses present and posterior tibial pulses present GI Inspection: No distended and No Abdominal panniculus present Palpation (GI): Soft to palpation, nontender, no guarding, not rigid and No hepatosplenomegaly present Percussion: Yes normal to percussion Auscultation: normal bowel sounds Rectal Exam - Female: deferred Skin General skin exam: no rashes or lesions noted, turgor normal, skin not dry, no jaundice, No spider nevi and no striae Rashes: no rashes Nails: normal Neuro General: oriented to person, oriented to place and oriented to time Cranial nerves: Yes Equal, round and reactive pupils present and Yes Normal hearing present Speech: No Abnormal speech present Extrem General: Yes normal to inspection, No clubbing, No cyanosis and No edema Psych Appearance: grossly normal and well kempt Mental Status: mental status grossly normal Speech and movement: Normal speech and movement present Affect: normal affect Attitude: cooperative Thought process: Normal thought process present and not confabulating Thought content: Normal thought content present Insight: Fair insight present (Psych) and Limited insight present (Psych) Judgement: Fair judgement present (Psych) and Limited judgement present (Psych) Results Reviewed Results Reviewed: Laboratory Tests 05/24/23 05/29/23 13:19 15:50 C-Reactive Protein 0.12 Stool Calprotectin 133 H Stool Pancreat Elastase >500 Tiss Transglutamin IgG <1.0 Tiss Transglutamin IgA <1.0 RAST report shows no significant food allergies ULTRASOUND OF THE ABDOMEN 06/13/23 FINDINGS: PANCREAS: Limited visualization of pancreatic tail and head. Imaged portion of pancreatic body is unremarkable. ABDOMINAL AORTA: Limited visualization. Imaged portions are unremarkable. INFERIOR VENA CAVA: Visualized portions are normal. LIVER: Mildly heterogeneous echotexture. Correlation with liver function tests recommended. Limited visualization due to bowel gas. GALLBLADDER: No gallstones. No gallbladder wall thickening. COMMON BILE DUCT: Normal in caliber measuring 0.39 cm in diameter. RIGHT KIDNEY: No hydronephrosis. No renal calculi. Limited visualization. The kidney measures 8.9 cm in maximum dimension. LEFT KIDNEY: No hydronephrosis. No renal calculi. Limited visualization. The kidney measures 8.8 cm in maximum dimension. SPLEEN: Normal. The spleen measures 9.5 cm in maximum dimension. FREE FLUID: None. US/US abdomen complete IMPRESSION: 1. Mildly heterogeneous hepatic echotexture. Correlation with liver function tests recommended. 2. Limited visualization due to bowel gas. Assessment & Plan Assessment & Plan (1) Diarrhea: Code(s): R19.7 - Diarrhea, unspecified Category: Medical (2) Elevated fecal calprotectin: Code(s): R19.5 - Other fecal abnormalities Category: Medical (3) Upper abdominal pain: Code(s): R10.10 - Upper abdominal pain, unspecified Category: Medical (4) Tubular adenoma of colon: Comment: 2020 scope 2 quite large polyps repeat in 3 years Code(s): D12.6 - Benign neoplasm of colon, unspecified Category: Medical (5) Alcohol abuse: Comment: Quit drinking in 2020 so far as of 05/2023 she is maintained her sobriety Code(s): F10.10 - Alcohol abuse, uncomplicated Category: Social Hx Plan Described results, she is having some relief with the dicyclomine 4 times a day her pain is not as sharp and her stools are slightly more formed. However given the elevated stool calprotectin I think we should consider if IBD is part of the differential. It does not appear that she has an acute infection or food allergy contributing to the inflammation. We will get a [facility] IBD genetics and of course the colonoscopy may be helpful in clarifying this. In the meantime I think will try a course of budesonide and if this gives her a marked improvement will know were on the right track. She is also passing gas better to alleviate bloating with the bentyl. She still has trouble digesting nuts - this may improve with other foods if the dx id IBD. She is aware of her colonoscopy but it is not scheduled until November. Return office visit in 6-8 weeks to evaluate her response to the budesonide Orders: Orders [facility] IBD SGI Today R19.5 - Other fecal abnormalities Medications: New budesonide DR-ER 9 mg (3 x 3 mg) PO DAILY 90 ea 3RF 30 days R19.5 - Other fecal abnormalities Coding Level of Care Code Est Pt Level 3 (55587) Diagnoses Diarrhea R19.7 Elevated fecal calprotectin R19.5 Upper abdominal pain R10.10 Tubular adenoma of colon D12.6 Alcohol abuse F10.10
[2023-07-05 13:34] VITALS: BP 96/51; PULSE 69; BMI 26.7
== END 2023-07-05 14:04 | disposition home or self-care (01) ==
LOC: HO.HGI 13:26
PROVIDERS: PCP Family Medicine; Visit Provider Nurse Practitioner
DX: R19.7 Diarrhea, unspecified (principal); R19.5 Other fecal abnormalities; R10.10 Upper abdominal pain, unspecified; D12.6 Benign neoplasm of colon, unspecified; F10.10 Alcohol abuse, uncomplicated
CPT/HCPCS: 99213

== ENCOUNTER → 2023-07-05 13:26 | Outpatient (BNVA) | payer MEDICARE, SELFPAY | PROVIDERS: PCP Family Medicine; Visit Provider Nurse Practitioner | DX: R19.7 Diarrhea, unspecified (principal); R19.5 Other fecal abnormalities; R10.10 Upper abdominal pain, unspecified; D12.6 Benign neoplasm of colon, unspecified; F10.10 Alcohol abuse, uncomplicated | CPT/HCPCS: 99212 ==

== ENCOUNTER 2023-08-22 11:48 | Outpatient (AMB) | payer MEDICARE, SELFPAY ==
[2023-08-22 11:51] VITALS: BP 134/66; PULSE 92; RESP 16; TEMP 36.5; O2SAT 96; BMI 26.4
--- NOTE | 2023-08-22 11:51 | A.OFFPC_ITS ---
Vital Signs 08/22/23 11:51 Height 5 ft 3 in Weight 149 lb BMI 26.4 BP 134/66 Blood Pressure Location Rt brachial Position Sitting Respiration 16 Pulse 92 Pulse Source Pulse Oximeter Temp 97.7 F Temp Source Temporal Artery Scan Pulse Oximetry (%) 96 Oxygen Delivery Method Room Air Intake Visit Reasons: f/u chronic conditions Environmental Health Officer Required: No Accompanied by: Self / Same As Patient Allergies aspirin [ASA] Allergy (Severe, Verified 08/22/23 11:55) Swelling, facial Seasonal Allergies Allergy (Severe, Verified 08/22/23 11:55) Unknown TREE POLLEN Allergy (Intermediate, Uncoded 05/24/23 12:16) Nasal congestion Medication List - Last Reconciled 08/22/23 by Ladarius Nelson MD acetaminophen ER (Tylenol 8 Hour) 650 mg PO Q8H PRN albuterol sulfate 90 mcg/actuation (ProAir HFA) 2 puffs inhalation Q4-6H PRN 1 month amlodipine 5 mg PO DAILY atorvastatin 10 mg PO BEDTIME 90 days bisacodyl (Dulcolax (bisacodyl)) 10 mg (2 x 5 mg) PO BEDTIME [address]-ER 9 mg (3 x 3 mg) PO DAILY 30 days dicyclomine 20 mg PO QID 30 days hydroxyzine HCl 25 mg PO BID PRN 30 days levothyroxine 88 mcg PO DAILY 30 days lisinopril 40 mg PO DAILY 90 days loratadine 10 mg PO DAILY melatonin 5 mg PO BEDTIME PRN 30 days peg 3350-electrolytes 236-22.74-6.74 -5.86 gram (Golytely) 240 mL PO Q10M 1 day polyethylene glycol 400 0.25% drps ophthalmic (eye) sertraline (Zoloft) 150 mg (1.5 x 100 mg) PO DAILY 30 days trazodone 50 - 100 mg (1 - 2 x 50 mg) PO BEDTIME PRN 30 days Tobacco use date assessed: 08/22/23 Fall risk assessment: No Falls in past year Last assessed Fall Risk: 08/22/23 Dental Screening Dental Screen Date: 02/28/23 HPI f/u chronic conditions HPI Details 67 y/o female presents to f/u chronic co nditions. Blood pressure today 134/66. She is on lisinopril 40mg daily, amlodipine 5mg. PFSH Medical History Pre-op examination Screening for osteoporosis Alcohol dependence Postprandial diarrhea Toe pain, right Abnormal x-ray Annual physical exam Right anterior shoulder pain Abnormal x-ray of bone Immunization counseling Abdominal pain Left foot pain Rectal bleeding Fall Left knee pain Left shoulder pain Left wrist pain Screening for breast cancer Screening for colon cancer Adult general medical exam Stye H/O heartburn Wears dentures Anxiety and depression Hx of thyroid disease HTN (hypertension) COPD (chronic obstructive pulmonary disease) History of colon polyps Surgical History Hx of arthroscopic knee surgery Hx of colonoscopy History of orbit decompression History of palate surgery Family History Mother No problems noted. Father No problems noted. Other Substance use disorder Social History Household Members: Family Housing: House Alcohol intake: current Alcohol intake frequency: 3 or more drinks per day Alcohol type: wine Patient Tobacco Use Status: Former Tobacco user e-Cigarette/Vaping Use: Currently Using Second Hand Smoke Exposure: No service: No Current occupational status: retired Current occupational exposures/hazards: No Cognitive needs: No Hearing needs: No Vision needs: Yes Questionnaire Thrive Questionnaire Date Thrive assessed: 02/28/23 ALKA-7 AMB Questionnaire ALKA-7 Date ALKA - 7 assessed: 02/28/23 Source: Developed by Drs. Juan Pablo Ramírez, Kari Richards, Morgan Alanis and colleagues, with an educational dahiana from [employer]. Review of Systems Const Denies chills, Denies fatigue, Denies fever(s), Denies headache(s) and Denies weakness ENT Denies dizziness and Denies headache(s) Card Denies dyspnea Resp Denies cough, Denies dyspnea, Denies wheezing and Denies other (shortness of breath) Musc Denies numbness and Denies tingling Neuro Denies dizziness, Denies headache(s), Denies numbness, Denies tingling and Denies weakness Psych Denies anxiety and Denies depression Endo Denies fatigue Aller/Immun Denies wheezing Physical exam (Primary Care) Vital Signs: Last Vital Signs Temp 97.7 F 08/22/23 11:51 Pulse 92 08/22/23 11:51 Resp 16 08/22/23 11:51 BP 134/66 08/22/23 11:51 Pulse Ox 96 08/22/23 11:51 Oxygen Delivery Method Room Air 08/22/23 11:51 BMI result Body Mass Index 26.4 Tobacco/Smoking Status: Tobacco use Status Tobacco use date assessed 08/22/23 08/22/23 11:58 Patient Tobacco Use Status Former Tobacco user 08/22/23 11:58 Tobacco use type 03/27/23 16:06 e-Cigarette/Vaping Use Currently Using 08/22/23 11:58 Thrive Assessment: Date of Thrive Assessment Date Thrive assessed 02/28/23 08/22/23 11:58 Const General: well developed; No acute distress Nutritional Appearance: well nourished Orientation/consciousness: patient oriented x3 HENMT Head: Yes normocephalic and Yes atraumatic Eyes General: appearance normal, both eyes and all related structures Pupils: Equal, round and reactive pupils present EOM: EOMs intact bilaterally Resp Effort & Inspection: normal respiratory effort Auscultation: clear to auscultation bilaterally Cardio Rate: regular rate Rhythm: regular rhythm Heart sounds: S1 normal heart sound present, S2 normal heart sound present, no gallops, no murmurs and no rubs Neuro General: patient oriented x3 and gait normal Cranial nerves: Yes Equal, round and reactive pupils present Psych Affect: normal affect Assessment and Plan Assessment & Plan (1) Essential hypertension: Code(s): I10 - Essential (primary) hypertension Plan: Blood?pressure?is?controlled.??Goal?is?less?than?140/90 Continue?current?medication (2) Cervicalgia: Code(s): M54.2 - Cervicalgia Plan: Significant?improvements?with?physical?therapy Continue?physical?therapy (3) Diarrhea: Code(s): R19.7 - Diarrhea, unspecified Plan: Improving?somewhat?with?dicyclomine She?notes?some?adverse?effects?such?as?blurry?vision She?can?try?a?adjusting?the?dose/frequency?slightly - let?GI?know Follow-up?with?GI?as?recommended Orders: Orders Comprehensive [place]. Panel Fast Today Z00.00 - Encounter for general adult medical examination without abnormal findings Lipid Panel Today Z00.00 - Encounter for general adult medical examination without abnormal findings Triiodothyronine T3 Total Today E03.9 - Hypothyroidism, unspecified UA and rflx microscopic Today Z00.00 - Encounter for general adult medical examination without abnormal findings Complete Blood Count Auto Diff Today Z00.00 - Encounter for general adult medical examination without abnormal findings Microalbumin, Random (w Creat) Today I10 - Essential (primary) hypertension Free T4 (Free Thyroxine) Today E03.9 - Hypothyroidism, unspecified TSH reflex Free T4 Today Z00.00 - Encounter for general adult medical examination without abnormal findings Coding Level of Care Code Est Pt Level 4 (15738) Diagnoses Essential hypertension I10 Cervicalgia M54.2 Diarrhea R19.7
== END 2023-08-22 12:16 | disposition home or self-care (01) ==
PROVIDERS: PCP Family Medicine; Visit Provider Family Medicine
DX: I10 Essential (primary) hypertension (principal); M54.2 Cervicalgia; R19.7 Diarrhea, unspecified
CPT/HCPCS: 99214

== ENCOUNTER 2023-08-30 13:07 | Outpatient (AMB) | payer MEDICARE, SELFPAY ==
--- NOTE | 2023-08-30 13:17 | MHC.OFFVIS ---
Intake Visit Reasons: 8 week follow up Allergies aspirin [ASA] Allergy (Severe, Verified 08/22/23 11:55) Swelling, facial Seasonal Allergies Allergy (Severe, Verified 08/22/23 11:55) Unknown TREE POLLEN Allergy (Intermediate, Uncoded 05/24/23 12:16) Nasal congestion HPI HPI 8 week follow up: Details: Assessment & Plan (1) Diarrhea: Code(s): R19.7 - Diarrhea, unspecified Category: Medical (2) Elevated fecal calprotectin: Code(s): R19.5 - Other fecal abnormalities Category: Medical (3) Upper abdominal pain: Code(s): R10.10 - Upper abdominal pain, unspecified Category: Medical (4) Tubular adenoma of colon: Comment: 2020 scope 2 quite large polyps repeat in 3 years Code(s): D12.6 - Benign neoplasm of colon, unspecified Category: Medical (5) Alcohol abuse: Comment: Quit drinking in 2020 so far as of 05/2023 she is maintained her sobriety Code(s): F10.10 - Alcohol abuse, uncomplicated Category: Social Hx Plan Described results, she is having some relief with the dicyclomine 4 times a day her pain is not as sharp and her stools are slightly more formed. However given the elevated stool calprotectin I think we should consider if IBD is part of the differential. It does not appear that she has an acute infection or food allergy contributing to the inflammation. [facility] and of course the colonoscopy may be helpful in clarifying this. In the meantime I think will try a course of budesonide and if this gives her a marked improvement will know were on the right track. She is also passing gas better to alleviate bloating with the bentyl. She still has trouble digesting nuts - this may improve with other foods if the dx id IBD. She is aware of her colonoscopy but it is not scheduled until November. Return office visit in 6-8 weeks to evaluate her response to the budesonide Orders: Orders [facility] S[facility] Today R19.5 - Other fecal abnormalities Medications: New budesonide DR-ER 9 mg (3 x 3 mg) PO DAILY 90 ea 3RF 30 days R19.5 - Other fecal abnormalities COLONOSCOPY 11/30/2023 BIOPSY TODAY'S VISIT With the budesinide her severe stomach pain has resolved, but she still has diarrhea. We will stop the bentyl as it is causing some eye blurring. Will give Imodium instead now with the budesinde. ROV 6 weeks - sent her today for [facility] lab. (again she had an elevated stool calprotectin). [facility] Medical History Pre-op examination Screening for osteoporosis Alcohol dependence Postprandial diarrhea Toe pain, right Abnormal x-ray Annual physical exam Right anterior shoulder pain Abnormal x-ray of bone Immunization counseling Abdominal pain Left foot pain Rectal bleeding Fall Left knee pain Left shoulder pain Left wrist pain Screening for breast cancer Screening for colon cancer Adult general medical exam Stye H/O heartburn Wears dentures Anxiety and depression Hx of thyroid disease HTN (hypertension) COPD (chronic obstructive pulmonary disease) History of colon polyps Surgical History Hx of arthroscopic knee surgery Hx of colonoscopy History of orbit decompression History of palate surgery Family History Mother No problems noted. Father No problems noted. Other Substance use disorder Social History Household Members: Family Housing: House Alcohol intake: current Alcohol intake frequency: 3 or more drinks per day Alcohol type: wine Patient Tobacco Use Status: Former Tobacco user e-Cigarette/Vaping Use: Currently Using Second Hand Smoke Exposure: No service: No Current occupational status: retired Current occupational exposures/hazards: No Cognitive needs: No Hearing needs: No Vision needs: Yes Review of Systems Const Denies fatigue, Denies fever(s), Denies night sweats, Denies poor appetite and Denies weight loss ENT Reports Normal hearing present, Denies dental pain, Denies dysphagia, Denies hearing loss, Denies mouth pain, Denies odynophagia, Denies throat swelling, Denies tongue swelling and Reports other (Dentition adequate) Card Reports no additional complaints Resp Reports no additional complaints GI Details: Denies abdominal pain, Denies melena, Denies bloating, Denies hematochezia, Denies constipation, Denies GI cramping, Denies dysphagia, Denies excessive flatus, Denies early satiety, Denies heartburn, Reports diarrhea, Denies nausea, Denies odynophagia, Denies vomiting and Denies hematemesis Skin/Breast Denies pruritus, Denies lesions, Denies rash and Denies jaundice Neuro Reports Normal hearing present and Denies Abnormal speech present Endo Denies fatigue Aller/Immun Denies throat swelling and Denies tongue swelling Physical Exam Const General: cooperative, no acute distress, well developed and well groomed Nutritional Appearance: average body habitus and well nourished Orientation/consciousness: oriented to person, oriented to place and oriented to time Limitations: No language barrier HEENT Head: Yes normocephalic and Yes atraumatic Eyes General: appearance normal, both eyes and all related structures Pupils: Equal, round and reactive pupils present Neck Neck: Yes normal visual inspection and Yes no lymphadenopathy Thyroid: Thyroid normal Resp Effort & Inspection: normal respiratory effort and able to speak in complete sentences Auscultation: clear to auscultation bilaterally Cardio Rate: regular rate Rhythm: regular rhythm Heart sounds: Normal, physiologic split S2 sound present Peripheral pulses: radial pulses present and posterior tibial pulses present GI Inspection: No distended and No Abdominal panniculus present Palpation (GI): Soft to palpation, nontender, no guarding, not rigid and No hepatosplenomegaly present Percussion: Yes normal to percussion Auscultation: normal bowel sounds Rectal Exam - Female: deferred Skin General skin exam: no rashes or lesions noted, turgor normal, skin not dry, no jaundice, No spider nevi and no striae Rashes: no rashes Nails: normal Neuro General: oriented to person, oriented to place and oriented to time Cranial nerves: Yes Equal, round and reactive pupils present and Yes Normal hearing present Speech: No Abnormal speech present Extrem General: Yes normal to inspection, No clubbing, No cyanosis and No edema Psych Appearance: grossly normal and well kempt Mental Status: mental status grossly normal Speech and movement: Normal speech and movement present Affect: normal affect Attitude: cooperative Thought process: Normal thought process present and not confabulating Thought content: Normal thought content present Insight: Limited insight present (Psych) Judgement: Limited judgement present (Psych) Assessment & Plan Assessment & Plan (1) Diarrhea: Code(s): R19.7 - Diarrhea, unspecified Category: Medical Plan With the budesinide her severe stomach pain has resolved, but she still has diarrhea. We will stop the bentyl as it is causing some eye blurring. Will give Imodium instead now with the budesinde. CORYV 6 weeks - sent her today for [facility]. (again she had an elevated stool calprotectin). COLONOSCOPY 11/30/2023 BIOPSY Medications: New loperamide (Imodium A-D) 2 mg PO QID PRN 90 caps 6RF loose stool R19.7 - Diarrhea, unspecified Refilled budesonide DR-ER 9 mg (3 x 3 mg) PO DAILY 90 ea 6RF 30 days R19.5 - Other fecal abnormalities On Hold dicyclomine Hold Comment: Doctor's Order 20 mg PO QID 30 days 120 tabs 6RF R19.7 - Diarrhea, unspecified Coding Level of Care Code Est Pt Level 3 (76774) Diagnoses Diarrhea R19.7
== END 2023-08-30 13:32 | disposition home or self-care (01) ==
PROVIDERS: PCP Family Medicine; Visit Provider Nurse Practitioner
DX: R19.7 Diarrhea, unspecified (principal)
CPT/HCPCS: 99213

== ENCOUNTER 2023-08-30 13:07 | Outpatient (REF) | payer MEDICARE, SELFPAY | END 2023-08-30 13:08 | disposition home or self-care (01) | LOC: HO.LAB 13:07 | PROVIDERS: PCP Family Medicine; Visit Provider Nurse Practitioner | DX: R19.7 Diarrhea, unspecified (principal); R19.5 Other fecal abnormalities | CPT/HCPCS: 36415; 81405; 81479; 82397; 83520; 86140; 88346; 88350; 99212 ==

== ENCOUNTER 2023-09-06 12:00 | Outpatient (RCR) | payer MEDICARE, SELFPAY ==
--- NOTE | 2023-07-13 16:13 | MHC.PT.EP ---
[facility] [place] Office [place] Office [place] Office [address] Kobi Butler [address] [phone] F: [phone] F: [phone] F: [phone] F: [phone] Physical Therapy Plan of Care Date of Evaluation: 07/13/23 Date of Surgery: N/A Diagnosis: cervicalgia and shoulder pain (RL) Assessment: pt is a 67 y/o female presenting to physical therapy w/ referring diagnosis of cervicalgia; pain in unspecified shoulder. Impairments include pain, decreased range of motion, decreased strength, impaired functional mobility, impaired postural awareness, and altered ambulation mechanics. pt is a good candidate for skilled PT due to age, potential remediation of impairments, typical disease/condition progression and prognosis, comorbidities, and motivation. pt would benefit from skilled PT intervention to provide a tailored strengthening and stretching exercise program, functional training, gait training, postural re-training, neuromuscular re-education, modalities as needed for pain, equipment safety demonstration. Frequency and Duration: The patient will be seen 2x/wk for 4 wks Short Term Goals: pt will be I w/ HEP to promote self-management of condition. pt will demo proper sitting posture w/ lumbar roll to promote neutral spine w/ seated ADLs. 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 pt will improve cervical flexion and B cervical rotation by at least 15 degrees to promote ease w/ head turns for driving. Treatment Plan: Modalities to reduce pain, spasms and effusion. Manual therapy to restore motion and function. Therapeutic exercise to improve strength and flexibility. Neuromuscular re-education for posture and balance. Therapeutic activities to return to functional activities of daily living. Electronically signed by: Aga Alex PT, DPT Please sign and return to therapist. Thank you for your referral.
--- NOTE | 2023-09-13 13:44 | MHC.PT.DC ---
[facility] [place] Office [place] Office [place] Office [address] Kobi Butler [address] [phone] F: [phone] F: [phone] F: [phone] F: [phone] Physical Therapy Discharge Report Diagnosis: cervicalgia and shoulder pain (RL) Date of Surgery: N/A Date of Evaluation: 07/13/23 Date of Discharge: 09/13/23 Treatments to Date: 12 Cancellations to Date: 2 No Shows to Date: 0 Discharge Status: Improved Function Independent with HEP Recommend MD Follow-up Discharge Summary: The patient overall has been reporting an improvement in her neck pain. At this time, she has seemingly plateaued over the past couple weeks. She is independent with her home exercise program which was reviewed her her today. She was given an updated handout and theraband so she can continue with her exercises. She is discharged from this physical therapy plan of care. Electronically signed by: Aga Alex PT, DPT Please sign and return to therapist. Thank you for your referral.
== END 2023-09-13 13:45 | disposition home or self-care (01) ==
LOC: HO.PT 12:00
PROVIDERS: PCP Family Medicine; Visit Provider Family Medicine
DX: M54.2 Cervicalgia (principal); M25.511 Pain in right shoulder
CPT/HCPCS: 97110; 97112; 97140; 97162; 97530

== ENCOUNTER 2023-10-24 13:04 | Outpatient (REF) | payer MEDICARE, SELFPAY | END 2023-10-24 13:05 | disposition home or self-care (01) | LOC: HO.LAB 13:04 | PROVIDERS: PCP Family Medicine; Visit Provider Nurse Practitioner | DX: R19.5 Other fecal abnormalities (principal); R19.7 Diarrhea, unspecified; D12.6 Benign neoplasm of colon, unspecified | CPT/HCPCS: 36415; 86003; 99212 ==

== ENCOUNTER 2023-10-24 13:04 | Outpatient (AMB) | payer MEDICARE, SELFPAY ==
[2023-10-24 13:10] VITALS: BP 98/59; PULSE 75; BMI 26.9
--- NOTE | 2023-10-24 13:10 | MHC.OFFVIS ---
Vital Signs 10/24/23 13:10 Height 5 ft 3 in Weight 152 lb 1.903 oz BMI 26.9 BP 98/59 L Blood Pressure Location Rt brachial Position Sitting Pulse 75 Intake Visit Reasons: 6 week FUV Intake Note: Marzena presents to in office 6 weeks follow up of labs and diarrhea. CC: Patient states I think the diarrhea is better since I stopped the medication I was on . She did not have a BM for x4 days after she d/c'd the dyciclomine and was getting gas. She was able to have formed BM after the 4th day but it was really hard to go . She also reports that she had taken imodium a few times and her stool became more loose recently. Activity Coordinator Required: No Accompanied by: Self / Same As Patient Allergies aspirin [ASA] Allergy (Severe, Verified 10/24/23 13:20) Swelling, facial Seasonal Allergies Allergy (Severe, Verified 10/24/23 13:20) Unknown TREE POLLEN Allergy (Intermediate, Uncoded 05/24/23 12:16) Nasal congestion HPI HPI 6 week FUV: Details: Assessment & Plan (1) Diarrhea: Code(s): R19.7 - Diarrhea, unspecified Category: Medical Plan With the budesinide her severe stomach pain has resolved, but she still has diarrhea. We will stop the bentyl as it is causing some eye blurring. Will give Imodium instead now with the budesinde. ROV 6 weeks - sent her today for [facility]. (again she had an elevated stool calprotectin). Medications: New loperamide (Imodium A-D) 2 mg PO QID PRN 90 caps 6RF loose stool R19.7 - Diarrhea, unspecified Refilled budesonide DR-ER 9 mg (3 x 3 mg) PO DAILY 90 ea 6RF 30 days R19.5 - Other fecal abnormalities On Hold dicyclomine Hold Comment: Doctor's Order 20 mg PO QID 30 days 120 tabs 6RF R19.7 - Diarrhea, unspecified LABS; [facility] report/genetics NOT c/w IBD COLONOSCOPY 11/30/2023 BIOPSY TODAYS VISIT Has follow up scheduled 12/13. She is no longer taking the bentyl, but she continues on the budesonide. I think we should add RAST testing to see if food allergies area part of the problem. She is agreeable. Her presentation of sx with the negative IBD genetics is puzzling. She is doing well in general with her imodium about q3days. She finds the budesonide expensive at about $60 a month, so reducing the dose to 2 caps daily. She is aware of the upcoming colonoscopy. Keep 12/13 appt [facility] Medical History Pre-op examination Screening for osteoporosis Alcohol dependence Postprandial diarrhea Toe pain, right Abnormal x-ray Annual physical exam Right anterior shoulder pain Abnormal x-ray of bone Immunization counseling Abdominal pain Left foot pain Rectal bleeding Fall Left knee pain Left shoulder pain Left wrist pain Screening for breast cancer Screening for colon cancer Adult general medical exam Stye H/O heartburn Wears dentures Anxiety and depression Hx of thyroid disease HTN (hypertension) COPD (chronic obstructive pulmonary disease) History of colon polyps Surgical History Hx of arthroscopic knee surgery Hx of colonoscopy History of orbit decompression History of palate surgery Family History Mother No problems noted. Father No problems noted. Other Substance use disorder Social History Household Members: Family Housing: House Alcohol intake: current Alcohol intake frequency: 3 or more drinks per day Alcohol type: wine Patient Tobacco Use Status: Former Tobacco user e-Cigarette/Vaping Use: Currently Using Second Hand Smoke Exposure: No service: No Current occupational status: retired Current occupational exposures/hazards: No Cognitive needs: No Hearing needs: No Vision needs: Yes Review of Systems Const Denies fatigue, Denies fever(s), Denies night sweats, Denies poor appetite and Denies weight loss ENT Reports Normal hearing present, Denies dental pain, Denies dysphagia, Denies hearing loss, Denies mouth pain, Denies odynophagia, Denies throat swelling, Denies tongue swelling and Reports other (Dentition adequate) Card Reports no additional complaints Resp Reports no additional complaints GI Details: Denies abdominal pain, Denies melena, Denies bloating, Denies hematochezia, Denies constipation, Denies GI cramping, Denies dysphagia, Denies excessive flatus, Denies early satiety, Reports heartburn, Reports diarrhea, Denies nausea, Denies odynophagia, Denies vomiting and Denies hematemesis Skin/Breast Denies pruritus, Denies lesions, Denies rash and Denies jaundice Neuro Reports Normal hearing present and Denies Abnormal speech present Endo Denies fatigue Aller/Immun Denies throat swelling and Denies tongue swelling Physical Exam Vital Signs: Last Vital Signs Pulse 75 10/24/23 13:10 BP 98/59 L 10/24/23 13:10 BMI result Body Mass Index 26.9 Const General: cooperative, no acute distress, well developed and well groomed Nutritional Appearance: average body habitus and well nourished Orientation/consciousness: oriented to person, oriented to place and oriented to time Limitations: No language barrier HEENT Head: Yes normocephalic and Yes atraumatic Eyes General: appearance normal, both eyes and all related structures Pupils: Equal, round and reactive pupils present Neck Neck: Yes normal visual inspection and Yes no lymphadenopathy Thyroid: Thyroid normal Resp Effort & Inspection: normal respiratory effort and able to speak in complete sentences Auscultation: clear to auscultation bilaterally Cardio Rate: regular rate Rhythm: regular rhythm Heart sounds: Normal, physiologic split S2 sound present Peripheral pulses: radial pulses present and posterior tibial pulses present GI Inspection: No distended and No Abdominal panniculus present Palpation (GI): Soft to palpation, nontender, no guarding, not rigid and No hepatosplenomegaly present Percussion: Yes normal to percussion Auscultation: normal bowel sounds Rectal Exam - Female: deferred Skin General skin exam: no rashes or lesions noted, turgor normal, skin not dry, no jaundice, No spider nevi and no striae Rashes: no rashes Nails: normal Neuro General: oriented to person, oriented to place and oriented to time Cranial nerves: Yes Equal, round and reactive pupils present and Yes Normal hearing present Speech: No Abnormal speech present Extrem General: Yes normal to inspection, No clubbing, No cyanosis and No edema Psych Appearance: grossly normal and well kempt Mental Status: mental status grossly normal Speech and movement: Normal speech and movement present Affect: normal affect Attitude: cooperative Thought process: Normal thought process present and not confabulating Thought content: Normal thought content present Insight: Fair insight present (Psych) Judgement: Fair judgement present (Psych) Assessment & Plan Assessment & Plan (1) Elevated fecal calprotectin: Code(s): R19.5 - Other fecal abnormalities Category: Medical (2) Tubular adenoma of colon: Comment: 2020 scope 2 quite large polyps repeat in 3 years Code(s): D12.6 - Benign neoplasm of colon, unspecified Category: Medical (3) Diarrhea: Code(s): R19.7 - Diarrhea, unspecified Category: Medical Plan Has follow up scheduled 12/13. She is no longer taking the bentyl, but she continues on the budesonide. I think we should add RAST testing to see if food allergies area part of the problem. She is agreeable. Her presentation of sx with the negative IBD genetics is puzzling. She is doing well in general with her imodium about q3days. She finds the budesonide expensive at about $60 a month, so reducing the dose to 2 caps daily. She is aware of the upcoming colonoscopy. Keep 12/13 appt COLONOSCOPY 11/30/2023 BIOPSY Orders: Orders [facility] Allergen 10/24/23 R19.7 - Diarrhea, unspecified, R19.5 - Other fecal abnormalities Medications: Changed From budesonide DR-ER 9 mg (3 x 3 mg) PO DAILY 30 days 90 ea 6RF R19.5 - Other fecal abnormalities To budesonide DR-ER 6 mg (2 x 3 mg) PO DAILY 60 ea 6RF 30 days R19.5 - Other fecal abnormalities Coding Level of Care Code Est Pt Level 3 (76576) Diagnoses Elevated fecal calprotectin R19.5 Tubular adenoma of colon D12.6 Diarrhea R19.7
== END 2023-10-24 13:56 | disposition home or self-care (01) ==
PROVIDERS: PCP Family Medicine; Visit Provider Nurse Practitioner
DX: R19.5 Other fecal abnormalities (principal); D12.6 Benign neoplasm of colon, unspecified; R19.7 Diarrhea, unspecified
CPT/HCPCS: 99213

== ENCOUNTER 2023-11-20 12:02 | Outpatient (REF) | payer MEDICARE, SELFPAY ==
[2023-11-20 12:15] LABS: MANUAL DIFF FLAG NO
[2023-11-20 12:25] LABS: Basophils Absolute Auto 0.1 X10*3/uL (0.0-0.2); Basophils Percent Auto 1.8 % (0-2); Eosinophils Absolute Auto 0.2 X10*3/uL (0.0-0.4); Eosinophils Percent Auto 2.4 % (0-4); Hematocrit 33.8 % (37.0-47.0); Hemoglobin 11.5 g/dl (12.0-16.0); Imm Gran Abs Auto 0.02 X10*3/uL (0.00-0.03); Imm Gran Pct Auto 0.3 % (0.0-0.4); Lymphocytes Absolute Auto 3.7 X10*3/uL (1.2-4.9); Lymphocytes Percent Auto 51.8 % (20-40); Mean Corpuscular Hemoglobin 29.8 pg (27.0-33.0); Mean Corpuscular Volume 87.6 fL (80.0-98.0); Mean Platelet Volume 9.3 fL (9.4-12.3); Monocytes Absolute Auto 0.6 X10*3/uL (0.1-1.2); Monocytes Percent Auto 8.2 % (2-11); Neutrophils Absolute Auto 2.6 x10*3/uL (2.0-8.3); Neutrophils Percent Auto 35.5 % (45-73); Platelet Count 312 X10*3/uL (160-400); Red Blood Count 3.86 X10*6/uL (4.20-5.50); Red Cell Distribution Width 15.6 % (11.0-16.0); White Blood Count 7.2 X10*3/uL (4.8-10.8)
[2023-11-20 13:00] LABS: Alanine Aminotransferase 13 U/L (0-31); Albumin Level 4.3 g/dL (3.5-5.0); Alkaline Phosphatase 98 U/L (39-117); Anion Gap 12 (12-20); Aspartate Amino Transferase 17 U/L (5-31); Bilirubin Total 0.2 mg/dL (0.0-1.0); Blood Urea Nitrogen 23 mg/dL (9-16); Calcium 9.5 mg/dL (8.4-10.2); Carbon Dioxide 23 mmol/L (22-29); Chloride 110 mmol/L (96-108); Cholesterol 166 mg/dL (<200); Estimated Glomerular Filt Rate 36; Glucose Fasting 95 mg/dL (60-99); HDL Cholesterol 66 mg/dL (>40); LDL Cholesterol Calculated 87 mg/dL (<100); Potassium 5.1 mmol/L (3.3-5.1); Sodium 140 mmol/L (135-145); Triglycerides 66 mg/dL (<150)
[2023-11-20 13:07] LABS: Appearance Urine Clear; Color Urine Yellow; Glucose Urine UA Negative (Negative); Leukocyte Esterase Urine Negative (Negative); Nitrite Urine Negative (Negative); PH 5.5 (5.0-9.0); Specific Gravity - Urine 1.015 (1.005-1.025); Urine Blood Negative (Negative); Urine Ketones Negative (Negative); Urine Protein Negative (Neg-Trace)
[2023-11-20 13:08] LABS: Total Protein 7.1 g/dL (6.5-8.0)
[2023-11-20 13:16] LABS: Free T4 (Free Thyroxine) 1.12 ng/dL (0.71-1.85)
[2023-11-20 13:40] LABS: Creatinine Urine 104.81 mg/dL; Microalbumin Urine < 5.0 mg/L
[2023-11-21 07:33] LABS: Triiodothyronine T3 Total 55 ng/dL (76-181)
== END 2023-11-20 12:03 | disposition home or self-care (01) ==
LOC: HO.LAB 12:02
PROVIDERS: PCP Family Medicine; Visit Provider Family Medicine
DX: Z00.00 Encounter for general adult medical examination without abnormal findings (principal); E03.9 Hypothyroidism, unspecified; I10 Essential (primary) hypertension
CPT/HCPCS: 36415; 80053; 80061; 81003; 82043; 82570; 84439; 84443; 84480; 85025

== ENCOUNTER 2023-11-27 12:35 | Outpatient (AMB) | payer MEDICARE, SELFPAY ==
--- NOTE | 2023-11-27 12:46 | AM.OFFVISMDC ---
Intake Vital Signs 11/27/23 13:14 Height 5 ft 3 in Weight 155 lb 4 oz BMI 27.5 BP 98/58 L Blood Pressure Location Lt brachial Position Sitting Respiration 12 Pulse 69 Pulse Source Pulse Oximeter Pulse Oximetry (%) 98 Oxygen Delivery Method Room Air Intake Visit Reasons: AWV Intake Note: annual physical Allergies aspirin [ASA] Allergy (Severe, Verified 11/27/23 13:24) Swelling, facial Seasonal Allergies Allergy (Severe, Verified 11/27/23 13:24) Unknown TREE POLLEN Allergy (Intermediate, Uncoded 05/24/23 12:16) Nasal congestion Medication List - Last Reconciled 11/27/23 by Loreta Pandya, [employer]- acetaminophen ER (Tylenol 8 Hour) 650 mg PO Q8H PRN albuterol sulfate 90 mcg/actuation (ProAir HFA) 2 puffs inhalation Q4-6H PRN 1 month amlodipine 5 mg PO DAILY atorvastatin 10 mg PO BEDTIME 90 days bisacodyl (Dulcolax (bisacodyl)) 10 mg (2 x 5 mg) PO BEDTIME [address]-ER 6 mg (2 x 3 mg) PO DAILY 30 days cholecalciferol (vitamin D3) 500 mcg PO DAILY dicyclomine 20 mg PO QID 30 days hydroxyzine HCl 25 mg PO BID PRN 30 days levothyroxine 88 mcg PO DAILY 30 days lisinopril 40 mg PO DAILY 90 days loperamide (Anti-Diarrheal (loperamide)) 2 mg PO QID PRN loperamide (Imodium A-D) 2 mg PO QID PRN loratadine 10 mg PO DAILY melatonin 5 mg PO BEDTIME PRN 30 days peg 3350-electrolytes 236-22.74-6.74 -5.86 gram (Golytely) 240 mL PO Q10M 1 day polyethylene glycol 400 0.25% drps ophthalmic (eye) sertraline (Zoloft) 150 mg (1.5 x 100 mg) PO DAILY 30 days trazodone 50 - 100 mg (1 - 2 x 50 mg) PO BEDTIME PRN 30 days vitamin K2 100 mcg PO DAILY Do you need a note to return to daycare/school/sports/work: No HPI HPI Comments History of Present Illness Details Here today for AWV. The Medicare Annual Wellness Visit (AWV) is a yearly appointment with a health professional to identify health risks and help reduce them and to create or update a personalized prevention plan. During a Medicare AWV, health professionals should also review any current opioid prescriptions, detect any cognitive impairment, and establish or update medical and family history. 68-year-old female with hyperlipidemia, osteoporosis, hypothyroidism, major depressive disorder, mild persistent asthma, anemia, tubular adenoma of the colon, generalized anxiety disorder, hypertension, ETOH dependence in remission since 2020, seasonal allergies/environmental allergies SurgHx: Y FHx: Y SocHx: Y Health Maintenance: See scanned preventative medicine assessment with personalized health plan and screening schedule. Colon: 2020 tubular adenoma, repeat 3 years >>has one scheduled [place] [facility] [place]o 01/19/23 DEXA 02/03/21 osteoporosis, repeat 01/2024 PAP would like to have a screen, + menopause, denies family hx of [employer] cancer. Referral to [employer] Vaccines Flu 2023, PCV UTD, Tdap 2015, Shingles had 1 needs to complete series AAA screen NA EKG: declined Telida of Care: as documented in chart Visual Acuity: not active w/ Optho, would like referral, has recurrent stye. Refer to [facility] Hearing Screening: ears feel blocked at times, uses debrox PRN, no hearing aides ACP: does not have, forms provided today MOLST HCP and 5 wishes Dietary/Nutrition/Exercise Edu provided: Y During the course of the visit the patient was educated and counseled about appropriate screening and preventative services. Patient instructions were provided to the patient in written or electronic format. I have reviewed and verified the above information. Problem: Mechanical fall, tripped on side walk Fell on L knee and scraped right wrist 1 month ago was on her way to medical appt when this happened and did recieve care by staff cont w pain in L knee and right wrist Exam: dry flaking skin EAC bilat worse on L, TM intact and clear Right wrist neurovasc intact; pain over dorsal aspect Left knee FROM c/o pain ove anterior-medial aspect. No obvious deformity Plan Xray of L knee and R wrist Start desonide to treat dry skin of ears RTO in 3 months with PCP for routine FU, sooner PRN This note is constructed using voice recognition software. While every effort has been made to ensure accuracy in communications systems engineer, still errors may have been included Sometimes, these errors may affect the content or meaning of the given sentence . An additional 20 was spent addressing the problem(s) noted at todays visit. This includes time spent before the visit reviewing the chart, time spent during the visit, and time spent after the visit on documentation [facility] Medical History (Updated 11/27/23 @ 17:26 by Loreta Pandya, [facility]) Alcohol dependence Fall Pre-op examination Screening for osteoporosis Postprandial diarrhea Toe pain, right Abnormal x-ray Annual physical exam Right anterior shoulder pain Abnormal x-ray of bone Immunization counseling Abdominal pain Left foot pain Rectal bleeding Left knee pain Left shoulder pain Left wrist pain Screening for breast cancer Screening for colon cancer Adult general medical exam Stye H/O heartburn Wears dentures Anxiety and depression Hx of thyroid disease HTN (hypertension) COPD (chronic obstructive pulmonary disease) History of colon polyps Surgical History Hx of arthroscopic knee surgery Hx of colonoscopy History of orbit decompression History of palate surgery Family History Mother No problems noted. Father No problems noted. Other Substance use disorder Social History Household Members: Family Housing: House Alcohol intake: current Alcohol intake frequency: 3 or more drinks per day Alcohol type: wine Patient Tobacco Use Status: Former Tobacco user e-Cigarette/Vaping Use: Currently Using Second Hand Smoke Exposure: No service: No Current occupational status: retired Current occupational exposures/hazards: No Cognitive needs: No Hearing needs: No Vision needs: Yes Questionnaire Medicare Wellness Checkup What [age] What gender do you identify with?: female During the past 4 weeks, how much have you been bothered by emotional problems such as feeling anxious, depressed, irritable, sad or downhearted, and blue?: slightly During the past 4 weeks, has your physical & emotional health limited your social activities with family, friends, neighbors, or groups?: not at all During the past 4 weeks, how much bodily pain have you generally had?: no pain During the past 4 weeks, was someone available to help you if you needed & wanted help?: yes, as much as I wanted During the past 4 weeks, what was the hardest physical activity you could do for at least 2 minutes?: light Can you get to places out of walking distance without help? (For eg., can you travel alone on buses, taxis or drive your car?): Yes Can you go shopping for groceries or clothes without someone's help?: Yes Can you prepare your own meals?: Yes Can you do your housework without help?: Yes Because of any health problems, do you need the help of another person with your personal care needs such as eating, bathing, dressing or getting around the house?: No Can you handle your own money without help?: Yes During the past 4 weeks, how would you rate your health in general?: good During the past 4 weeks how have things been going for you?: pretty well Are you having difficulties driving your car?: no Do you always fasten your seat belt when you are in a car?: yes, usually During past 4 weeks, have you been bothered by the following: never: Falling or dizzy when standing up, Sexual problems?, Trouble eating well?, Problems using the telephone? and Tiredness or fatigue? and always: Teeth or denture problems? (needs extractions, trouble chewing. Recommended to fu with Dentist/oral surgeon that works w her insurance ) Have you fallen 2 or more times in the past year?: No Are you afraid of falling?: No Are you a smoker?: no During the past 4 weeks, how many drinks of wine, beer, or other alcoholic beverages did you have?: no alcohol at all Do you exercise for about 20 minutes 3 or more times a week?: no, I usually do not exercise this much Have you been given information to help with the following?: no: Hazards in your house that might hurt you? and no: Keeping track of your medications? How often do you have trouble taking medicines the way you have been told to take them?: I always take medicine as prescribed How confident are you that you can control & manage most of your health problems?: very confident What is your race?: White Activity of Daily Living Bathing - sponge bath, tub bath or shower: receives no assistance (gets in/out by self, if usual bathing means Dressing - getting clothes from closets & drawers, including inner/outer garments & fasteners.: gets clothes & gets completely dressed without help Toileting - going to the 'toilet room' for urine/bowel elimination & cleaning self/arranging clothes: goes to toilet room, cleans self, arranges clothes without help Transfer: moves in & out of bed and chair without help (may use support object) Continence: controls urination/bowel movements completely by self Feeding: feeds self without help Total Score: 0 Information obtained from: patient Using telephone: independent Traveling: independent Shopping: independent Preparing meals: independent Housework: independent Taking medicine: independent Managing money: independent PHQ-9 Over the last 2 weeks, how often have you been bothered by any of the following problems? 1. Little interest or pleasure in doing things: not at all 2. Feeling down, depressed, or hopeless: not at all 3. Trouble falling or staying asleep, or sleeping too much: not at all 4. Feeling tired or having little energy: not at all 5. Poor appetite or overeating: not at all 6. Feeling bad about yourself - or that you are a failure or have let yourself or your family down: not at all 7. Trouble concentrating on things, such as reading the newspaper or watching television: not at all 8. Moving or speaking so slowly that other people could have noticed. Or the opposite - being so fidgety or restless that you have been moving around a lot more than usual: not at all 9. Thoughts that you would be better off or of hurting yourself in some way: not at all Total score: 0 Depression Screening Interpretation: Negative Depression Screening Done: Yes 16759 - PHQ-9 Billing: Yes Source: Developed by Drs. Juan Pablo Ramírez, Kari Richards, Morgan Alanis and colleagues, with an educational dahiana from [employer]. Physical Exam Vital Signs: Last Vital Signs Pulse 69 11/27/23 13:14 Resp 12 11/27/23 13:14 BP 98/58 L 11/27/23 13:14 Pulse Ox 98 11/27/23 13:14 Oxygen Delivery Method Room Air 11/27/23 13:14 BMI result Body Mass Index 27.5 Office Procedures Hearing Screen Left Overall Hearing Screening Results: Pass 85593 - Screening Test, pure tone, air only Vision Screening Right Eye: 20/30 Left Eye: 20/40 Bilateral: 20/30 Color: Pass 68041 - Vision Screening Results AMB Hemoglobin A1c AMB Hemoglobin A1c 5.9 % Last Edit by Cassie Lewis MA on 11/27/23 13:28 Results Reviewed Results Reviewed: Laboratory Last Values Hgb A1c (Clinic) 5.9 % (4.0-6.0) 11/27/23 13:19 Assessment & Plan Assessment & Plan (1) Encounter for subsequent annual wellness visit (AWV) in Medicare patient: Code(s): Z00.00 - Encounter for general adult medical examination without abnormal findings Plan: . (2) Blurred vision: Code(s): H53.8 - Other visual disturbances Plan: . (3) Fall: Code(s): W19.XXXA - Unspecified fall, initial encounter Qualifiers: Encounter type: initial encounter Qualified Code(s): W19.XXXA - Unspecified fall, initial encounter Plan: . (4) Osteoporosis: Code(s): M81.0 - Age-related osteoporosis without current pathological fracture Qualifiers: Osteoporosis type: other Presence of current pathological fracture: without current pathological fracture Qualified Code(s): M81.8 - Other osteoporosis without current pathological fracture Plan: . (5) Eczema of both external ears: Code(s): H60.543 - Acute eczematoid otitis externa, bilateral Plan: . (6) Right wrist pain: Code(s): M25.531 - Pain in right wrist Plan: . (7) Alcohol dependence: Code(s): F10.20 - Alcohol dependence, uncomplicated Qualifiers: Substance use status: in remission Qualified Code(s): F10.21 - Alcohol dependence, in remission Plan: . (8) Stye: Comment: recurrent Code(s): H00.019 - Hordeolum externum unspecified eye, unspecified eyelid Qualifiers: Eyelid: upper Laterality: left Qualified Code(s): H00.014 - Hordeolum externum left upper eyelid Plan: . (9) Menopause: Code(s): Z78.0 - Asymptomatic menopausal state Plan: . (10) Screening for cervical cancer: Code(s): Z12.4 - Encounter for screening for malignant neoplasm of cervix Plan: . Orders: Orders AMB Hemoglobin A1c Today Z13.9 - Encounter for screening, unspecified XR wrist RT min 3V Today M81.0 - Age-related osteoporosis without current pathological fracture, W19.XXXA - Unspecified fall, initial encounter XR knee LT 4V Today M81.0 - Age-related osteoporosis without current pathological fracture, W19.XXXA - Unspecified fall, initial encounter Referrals EXTENSION SPECIALIST Referral Z12.4 - Encounter for screening for malignant neoplasm of cervix, Z78.0 - Asymptomatic menopausal state Ophthalmology Referral H00.014 - Hordeolum externum left upper eyelid, H53.8 - Other visual disturbances Medications: New desonide 0.05% 1 appl topical BID-QID PRN 60 grams 0RF itching Changed From albuterol sulfate 90 mcg/actuation (ProAir HFA) 2 puffs inhalation Q4-6H 1 month PRN 6.7 grams 5RF shortness of breath or wheezing To albuterol sulfate 90 mcg/actuation 2 puffs inhalation Q4-6H PRN 6.7 grams 5RF shortness of breath or wheezing 1 month Refilled atorvastatin 10 mg PO BEDTIME 90 tabs 3RF 90 days Discontinued loperamide (Imodium A-D) Discontinued Reason: Duplicate 2 mg PO QID PRN 90 caps 6RF loose stool R19.7 - Diarrhea, unspecified Patient Instructions: Please call [facility] [phone] and see if you are eligible for meals on wheels Quality Reporting (2019) Adult ([facility] [address] 138/03/29/68) Smoking risk assessment performed?: Yes Patient Tobacco Use Status: Former Tobacco user Depression screening performed: Yes Screen Results: Yes Negative screen Recommended changes not done: EKG Patient refused: Yes Systolic BP not done?: No Diastolic BP not done?: No BMI screening not done: No Sexual Activity Screening ([facility] [address]) Sexually active?: No Immunizations ([facility] [address], 117) Annual Influenza Vaccine: Yes Measles Antibody Test: No Mumps Antibody Test: No Rubella Antibody Test: No Varicella Antibody Test: No Anti Hepatitis A IgG Antigen test: No Anti Hepatitis B Virus Surface Ab test: No Fall Risk Screening ([facility] [address]) Last assessed Fall Risk: 11/27/23 Fall risk assessment: 1 Fall in past year Dementia Assessment ([facility] [address]) Cognitive assessment recorded: Yes (6 cit wnl ) Assessment of cognition with standardized tool: Yes Depression/Bipolar (159/160/161/177) PHQ-9: Total score: 0 Ophthalmol:Cataracts Visual Acuity (133) Visual acuity exam performed: Yes (see results ) Coding Level of Care Code Medicare Subsequent (G0439) Est Pt Level 3 (78397) Diagnoses Encounter for subsequent annual wellness visit (AWV) in Medicare patient Z00.00 Blurred vision H53.8 Fall, initial encounter W19.XXXA Encounter type: initial encounter Other osteoporosis without current pathological fracture M81.8 Osteoporosis type: other Presence of current pathological fracture: without current pathological fracture 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 Right wrist pain M25.531 Alcohol dependence in remission F10.21 Substance use status: in remission Hordeolum externum of left upper eyelid H00.014 Eyelid: upper Laterality: left Menopause Z78.0 Screening for cervical cancer Z12.4 CPT Codes Advance Care Planning - Time spent: 1-15 minutes, not on file ([id number]) Coding - Hearing Test Screenin - Screening Test, pure tone, air only ([id number]) Vision Screening - Vision Screenin - Vision Screening ([id number]) Advance Care Planning Advance Care Planning discussion: Exists, not on file Date of discussion: 11/27/23 Who was present: self Forms completed: Health Care Proxy and MOLST Time spent: 1-15 minutes, not on file Actual minutes spent: 5
[2023-11-27 13:14] VITALS: BP 98/58; PULSE 69; RESP 12; O2SAT 98; BMI 27.5
== END 2023-11-27 14:03 | disposition home or self-care (01) ==
PROVIDERS: PCP Family Medicine; Visit Provider Nurse Practitioner Family
DX: Z00.00 Encounter for general adult medical examination without abnormal findings (principal); H53.8 Other visual disturbances; F10.21 Alcohol dependence, in remission; M81.8 Other osteoporosis without current pathological fracture; H60.543 Acute eczematoid otitis externa, bilateral; W19.XXXA Unspecified fall, initial encounter; M25.531 Pain in right wrist; H00.014 Hordeolum externum left upper eyelid; Z78.0 Asymptomatic menopausal state

== ENCOUNTER → 2023-11-27 12:35 | Outpatient (BNVA) | payer MEDICARE, SELFPAY | PROVIDERS: PCP Family Medicine; Visit Provider Nurse Practitioner Family | DX: Z00.01 Encounter for general adult medical examination with abnormal findings (principal); H53.8 Other visual disturbances; M81.8 Other osteoporosis without current pathological fracture; H60.543 Acute eczematoid otitis externa, bilateral; M25.531 Pain in right wrist; M25.562 Pain in left knee; F10.21 Alcohol dependence, in remission; H00.014 Hordeolum externum left upper eyelid; Z91.81 History of falling; Z78.0 Asymptomatic menopausal state | CPT/HCPCS: 83036; 99212 ==

== ENCOUNTER 2023-11-30 08:31 | Day surgery (SDC) | payer MEDICARE, SELFPAY ==
[2023-11-30 09:40] VITALS: BMI 24.5
[2023-11-30] MEDS: Lactated Ringers 1,000 ML 50 ML IVCONT (10:04)
[2023-11-30 10:05] VITALS: BP 135/49; PULSE 59; RESP 15; TEMP 36; O2SAT 97
--- NOTE | 2023-11-30 10:11 | P.CONAN_ITS ---
[facility] Active Problems Active Problems: All Active Problems Alcohol dependence (Acute) Right wrist pain (Acute) Eczema of both external ears (Acute) Fall (Acute) Blurred vision (Acute) Screening for cervical cancer (Acute) Menopause (Acute) Elevated fecal calprotectin (Acute) Renal insufficiency (Acute) Neck pain on right side (Acute) Shoulder pain (Acute) Upper abdominal pain (Acute) Diarrhea (Acute) Hypercholesterolemia (Acute) Osteoporosis (Acute) Upper back pain (Acute) Cervicalgia (Acute) Hypothyroidism (Acute) Major depression (Acute) Bilateral knee pain (Acute) Hx of thyroid disease (Acute) Neoplasm of uncertain behavior of skin (Acute) Physical deconditioning (Acute) Generalized arthritis (Acute) Mild persistent asthma, uncomplicated (Acute) Mild anemia (Acute) Elevated fasting blood sugar (Acute) Tubular adenoma of colon (Acute) Alcohol abuse (Acute) Anxiety with depression (Acute) LBBB (left bundle branch block) (Acute) Stye (Acute) Essential hypertension (Acute) Lower extremity weakness (Acute) Past Medical History Medical History Alcohol dependence Fall Pre-op examination Screening for osteoporosis Postprandial diarrhea Toe pain, right Abnormal x-ray Annual physical exam Right anterior shoulder pain Abnormal x-ray of bone Immunization counseling Abdominal pain Left foot pain Rectal bleeding Left knee pain Left shoulder pain Left wrist pain Screening for breast cancer Screening for colon cancer Adult general medical exam Stye H/O heartburn Wears dentures Anxiety and depression Hx of thyroid disease HTN (hypertension) COPD (chronic obstructive pulmonary disease) History of colon polyps Family History Family History Mother No problems noted. Father No problems noted. Other Substance use disorder Family history of problems with anesthesia: No Surgical History Surgical History Hx of arthroscopic knee surgery Hx of colonoscopy History of orbit decompression History of palate surgery History of Problems with Anesthesia: No Social History Social History Household Members: Family Housing: House Are you a primary early breastfeeding care specialist to a significant other at home: No Do you presently have visiting nurse or other home services: No Alcohol intake: current Alcohol intake frequency: former alcohol drinker Alcohol type: wine Patient Tobacco Use Status: Current everyday Tobacco user Tobacco use type: Smokeless Tobacco e-Cigarette/Vaping Use: Currently Using Patient Interested in Nicotine Replacement: No Second Hand Smoke Exposure: No Use of substances other than those prescribed or required for medical reasons: No Have you been hit, kicked, punched, or otherwise hurt by someone within the past year? If so, by whom?: No Are you DNR?: No Advance Directives: No Advance Directives Information Provided: Yes Recently lost weight without trying: No Nutrition Risks: No Nutritional Risk Patient : No service: No Current occupational status: retired Current occupational exposures/hazards: No Cognitive needs: No Hearing needs: No Vision needs: Yes Meds Allergies Allergy/AdvReac Type Severity Reaction Status Date / Time aspirin [ASA] Allergy Severe Swelling, Verified 11/30/23 09:46 facial Seasonal Allergies Allergy Severe Unknown Verified 11/30/23 09:46 TREE POLLEN Allergy Intermediate Nasal Uncoded 05/24/23 12:16 congestion Active Medications: Current Medications Lactated Ringer's (Lr) 1,000 mls @ 50 mls/hr IVCONT .Q20H AIDE Last Admin: 11/30/23 10:04 Dose: 50 mls/hr Naloxone HCl (Naloxone Hcl 0.4 Mg/Ml Vial) 0.04 mg IVPUSH Q5M PRN PRN Reason: Excessive sedation or RR < 8 Home Medications ?Medication ?Instructions ?Recorded ?Confirmed ?Last Taken ?Type polyethylene glycol 400 0.25 % eye drp ophthalmic (eye) 11/13/22 11/27/23 Unknown History drops cholecalciferol (vitamin D3) 250 500 mcg PO DAILY 10/24/23 11/27/23 Unknown History mcg (10,000 unit) capsule vitamin K2 100 mcg capsule 100 mcg PO DAILY 10/24/23 11/27/23 Unknown History loperamide 2 mg capsule 2 mg PO QID PRN Diarrhea 11/27/23 11/27/23 Unknown History (Anti-Diarrheal (loperamide)) Exam Height,Weight and Vital Signs: Height 5 ft 6 in Weight 68.946 kg Last Vital Signs Temp 96.8 F 11/30/23 10:05 Pulse 59 11/30/23 10:05 Resp 15 11/30/23 10:05 BP 135/49 L 11/30/23 10:05 Pulse Ox 97 11/30/23 10:05 O2 Del Method Room Air 11/30/23 10:05 Airway Mallampati Class: II (edentulous) TM Dist: >3cm Neck ROM: Full Heart: rrr Lungs: cta Assessment and Plan Assessment Anesthesia Assessment: Anesthesia Plan Discussed and Chart Reviewed Final Anesthetic Review Family History of Problems with Anesthesia: No History of Problems with Anesthesia: No NPO: Yes ASA Class: III Final Preanesthetic Review: No Changes in Pt Med Stat, Meds/Allgs Chart Reviewed and Consent Obtained/Reviewed Patient Risk: Low Procedure Risk: Low Anesthetic Plan Anesthetic Plan: MAC: Disposition: Standard PACU
--- NOTE | 2023-11-30 10:12 | MHC.SHP ---
Pre-Procedural Eval Section A - 24 Hr Update-Section A only Date of Service: 11/30/23 The patient is an INPATIENT: No The patient has been examined within 24 hours of the surgical procedure. The History & Physical has been completed within 30 days and I have reviewed it.: No Section B - Complete if H&P > 30 days Chief Complaint: Surveillance for colon polyps Details of Present Illness: history colon polyps Relevant Family History (Specify if Yes): No Relevant Social History: Tobacco Use (Former smoker) Present Medications: see Short Stay Collaborative assessment Medical History: Significant History (Hypertension, COPD, anxiety and depression, history of thyroid disease) History of Previous Operations: Relevant previous surgery/procedure and date(s) (History of palate surgery, history of colonoscopy) Allergies: Allergies Allergy/AdvReac Type Severity Reaction Status Date / Time aspirin [ASA] Allergy Severe Swelling, Verified 11/30/23 09:46 facial Seasonal Allergies Allergy Severe Unknown Verified 11/30/23 09:46 TREE POLLEN Allergy Intermediate Nasal Uncoded 05/24/23 12:16 congestion Review of Systems Sugical H&P ROS: Negative: Constitution, Cardiovascular and Respiratory and Yes, Specify: Gastrointestinal (loose stools, rectal bleeding) Exam Surgical H&P Exam: Normal: HEENT, Normal: Heart, Normal: Lungs, Normal: Extremities and Normal: Abdomen Plan Diagnosis/Plan: Unchanged I have reviewed the history and physical and performed a pertinent physical examination on my patient. No changes have occurred unless specified. Time Spent With Patient Time: Total time managing care of this patient today ____ minutes.
[2023-11-30 10:50] VITALS: BP 120/48; PULSE 62; RESP 16; TEMP 36.2; O2SAT 95
--- NOTE | 2023-11-30 10:50 | HO.OPN-COLON ---
Colonoscopy Operative Note Operative Note Date of Service: 11/30/23 Narrative: COLONOSCOPY TILL CECUM WITH BIOPSIES Pre-op diagnosis: Surveillance for colon polyps. Post-op diagnosis: Diverticulosis, hemorrhoids Endoscopist:? Verona Cullen MD Anesthesia:?MAC Consent: Indications for the procedure and potential complications of bleeding, perforation, reaction to medications and missed diagnosis were discussed with the patient and informed consent was obtained. Instrument: Olympus PCF H 190 L variable stiffness pediatric colonoscope Monitoring: Vital signs and clinical assessment, intermittent blood pressure monitoring, continuous EKG monitoring, Pulse oximetry and Carbon Dioxide monitoring were done throughout the procedure. Please see anesthesia flowsheet. Colon withdrawl time was 14 minutes. Procedure: The patient was placed in the left lateral decubitis position and pre-procedure medications were administered. After a digital rectal examination of the ano-rectum, the video colonoscope was inserted into the rectum and advanced through the colon to the cecum. The colonoscope was slowly withdrawn in a retrograde panoramic fashion and the colon mucosa was carefully examined including a retroflexed view of the rectum. Findings and interventions are described below. Procedure Difficulty: There was narrowing of the sigmoid colon from 30 to 35 cms due to severe diverticulosis which was navigated with some difficulty Findings: Terminal Ileum: Not evaluated Cecum: Normal Ascending Colon: Normal Transverse Colon: Normal Descending Colon: Moderate diverticulosis Sigmoid Colon: Severe diverticulosis with luminal narrowing Rectum: Normal Ano-rectum: Moderate internal hemorrhoids Colon preparation: Excellent after some irrigation. [place] Bowel Preparation Scale Right colon; 3 Transverse colon: 3 Left colon; 3 (0 = Unprepared colon segment with mucosa not seen due to solid stool that cannot be cleared. 1 = Portion of mucosa of the colon segment seen, but other areas of the colon segment not well seen due to staining, residual stool and/or opaque liquid. 2 = Minor amount of residual staining, small fragments of stool and/or opaque liquid, but mucosa of colon segment seen well. 3 = Entire mucosa of colon segment seen well with no residual staining, small fragments of stool or opaque liquid) Impression and Post Procedure Diagnosis: Colonoscopy Findings: No polyps were detected Random biopsies were obtained from the colon to check for microscopic colitis Moderate to severe diverticulosis seen in the left colon Moderate hemorrhoids on retroflexed exam. Plan: Pt has a FU appointment on 12/14/23 with Kristin Hicks NP, Consider further evaluation of suspected IBD with Capsule Endoscopy/ CT enterography Repeat Colonoscopy in 5 years due to a history of adenomatous colon polyps. Above findings were reviewed with the patient and relevant handouts were given and the discharge area.
[2023-11-30 11:05] VITALS: BP 111/57; PULSE 56; RESP 16; TEMP 36.1; O2SAT 97
== END 2023-11-30 11:33 | disposition home or self-care (01) ==
PROVIDERS: PCP Family Medicine; Visit Provider Internal Medicine Gastroenterology
PROC: 0DJD8ZZ Inspection of Lower Intestinal Tract, Via Natural or Artificial Opening Endoscopic (ICD-10-PCS; CPT 45378; principal; 2023-11-30 10:10)
DX: Z12.11 Encounter for screening for malignant neoplasm of colon (principal); Z86.0101 Personal history of adenomatous and serrated colon polyps; K57.30 Diverticulosis of large intestine without perforation or abscess without bleeding; K64.8 Other hemorrhoids; R19.7 Diarrhea, unspecified; R89.3 Abnormal level of substances chiefly nonmedicinal as to source in specimens from other organs, systems and tissues; J30.2 Other seasonal allergic rhinitis; I10 Essential (primary) hypertension; F41.8 Other specified anxiety disorders; J44.9 Chronic obstructive pulmonary disease, unspecified; Z79.899 Other long term (current) drug therapy; Z88.6 Allergy status to analgesic agent; F10.20 Alcohol dependence, uncomplicated; F17.290 Nicotine dependence, other tobacco product, uncomplicated
CPT/HCPCS: 45380; 88305; J2003; J2704

== ENCOUNTER → 2023-11-30 08:31 | Outpatient (BNV) | payer MEDICARE, SELFPAY | PROVIDERS: PCP Family Medicine; Visit Provider Internal Medicine Gastroenterology | DX: Z12.11 Encounter for screening for malignant neoplasm of colon (principal); Z86.0100 Personal history of colon polyps, unspecified; K57.90 Diverticulosis of intestine, part unspecified, without perforation or abscess without bleeding; K64.0 First degree hemorrhoids | CPT/HCPCS: 45380 ==

== ENCOUNTER 2023-12-14 09:10 | Outpatient (AMB) | payer MEDICARE, SELFPAY ==
[2023-12-14 09:14] VITALS: BP 96/51; PULSE 66; BMI 25.2
--- NOTE | 2023-12-14 09:14 | MHC.OFFVIS ---
Vital Signs 12/14/23 09:14 Height 5 ft 6 in Weight 156 lb 1.396 oz BMI 25.2 BP 96/51 L Blood Pressure Location Lt brachial Position Sitting Pulse 66 Intake Visit Reasons: s/p colon Intake Note: Patient in office today in follow up of colonoscopy. CC: Patient states that her rectum was sore for about 6 days after the procedure and some blood. She also reports nausea sometimes in the morning, mild heartburn, and a little bit of RUQ discomfort. Allergies aspirin [ASA] Allergy (Severe, Verified 12/14/23 09:17) Swelling, facial Seasonal Allergies Allergy (Severe, Verified 12/14/23 09:17) Unknown TREE POLLEN Allergy (Intermediate, Uncoded 05/24/23 12:16) Nasal congestion HPI HPI s/p colon: Details: Assessment & Plan (1) Elevated fecal calprotectin: Code(s): R19.5 - Other fecal abnormalities Category: Medical (2) Tubular adenoma of colon: Comment: 2020 scope 2 quite large polyps repeat in 3 years Code(s): D12.6 - Benign neoplasm of colon, unspecified Category: Medical (3) Diarrhea: Code(s): R19.7 - Diarrhea, unspecified Category: Medical Plan Has follow up scheduled 12/13. She is no longer taking the bentyl, but she continues on the budesonide. I think we should add RAST testing to see if food allergies area part of the problem. She is agreeable. Her presentation of sx with the negative IBD genetics is puzzling. She is doing well in general with her imodium about q3days. She finds the budesonide expensive at about $60 a month, so reducing the dose to 2 caps daily. She is aware of the upcoming colonoscopy. Keep 12/13 appt Orders: Orders Rast Allergen 10/24/23 R19.7 - Diarrhea, unspecified, R19.5 - Other fecal abnormalities Medications: Changed From budesonide DR-ER 9 mg (3 x 3 mg) PO DAILY 30 days 90 ea 6RF R19.5 - Other fecal abnormalities To budesonide DR-ER 6 mg (2 x 3 mg) PO DAILY 60 ea 6RF 30 days R19.5 - Other fecal abnormalities LABS: [facility] genetic study was not consistent with IBD RAST PANEL SHOWS NO SIGNIFICANT FOOD ALLERGIES COLONOSCOPY 11/30/23 Findings: Terminal Ileum: Not evaluated Cecum: Normal Ascending Colon: Normal Transverse Colon: Normal Descending Colon: Moderate diverticulosis Sigmoid Colon: Severe diverticulosis with luminal narrowing Rectum: Normal Ano-rectum: Moderate internal hemorrhoids Colon preparation: Excellent after some irrigation. Impression and Post Procedure Diagnosis: Colonoscopy Findings: No polyps were detected Random biopsies were obtained from the colon to check for microscopic colitis Moderate to severe diverticulosis seen in the left colon Moderate hemorrhoids on retroflexed exam. Plan: Pt has a FU appointment on 12/14/23 with Kristin Hicks NP, Consider further evaluation of suspected IBD with Capsule Endoscopy/ CT enterography Repeat Colonoscopy in 5 years due to a history of adenomatous colon polyps. BIOPSY Received: 11/30/23 Diagnosis Colon, random, biopsy: Colonic mucosa within normal limits. TODAY'S VISIT She is agreeable to a 5 year follow-up depending on her health. The procedure was well tolerated. The results were explained and the patient is agreeable to the follow-up interval as stated. Education was provided to tell any 1st degree relatives about their findings to be sure that they are screened by age 45. Educated that they will be put on a recall list when it is time for their repeat scope but should they move out of state or away from the hospital they will need to remember along with their primary to repeat the procedure in a timely fashion to avoid any adverse complications. No other reversible causes of diarrhea, so this is functional. Now she is still having post prandial BM's but not as watery - soft/formed to mushy. We had reduced her budesonide to 6 mg because of cost issues seems to be doing okay in satisfied so far me to adding this dose. She continues on budesonide, and loperamide. We stopped the dicyclomine because she had some eye blurring. Return office visit in 8 weeks [facility] Medical History (Updated 02/15/24 @ 11:12 by JUAN Morris) Lower extremity weakness Physical deconditioning Hx of thyroid disease Upper abdominal pain Shoulder pain Neck pain on right side Screening for cervical cancer Fall Upper back pain Alcohol dependence Pre-op examination Screening for osteoporosis Postprandial diarrhea Toe pain, right Abnormal x-ray Annual physical exam Right anterior shoulder pain Abnormal x-ray of bone Immunization counseling Abdominal pain Left foot pain Rectal bleeding Left knee pain Left shoulder pain Left wrist pain Screening for breast cancer Screening for colon cancer Adult general medical exam Stye H/O heartburn Wears dentures Anxiety and depression HTN (hypertension) COPD (chronic obstructive pulmonary disease) History of colon polyps Surgical History Hx of arthroscopic knee surgery Hx of colonoscopy History of orbit decompression History of palate surgery Family History Mother No problems noted. Father No problems noted. Other Substance use disorder Social History Household Members: Family Housing: House Are you a primary pet care worker to a significant other at home: No Do you presently have visiting nurse or other home services: No Alcohol intake: current Alcohol intake frequency: former alcohol drinker Alcohol type: wine Patient Tobacco Use Status: Current everyday Tobacco user Tobacco use type: Smokeless Tobacco e-Cigarette/Vaping Use: Currently Using Second Hand Smoke Exposure: No service: No Current occupational status: retired Current occupational exposures/hazards: No Cognitive needs: No Hearing needs: No Vision needs: Yes Review of Systems Const Denies fatigue, Denies fever(s), Reports frequent falls, Denies night sweats, Denies poor appetite and Denies weight loss ENT Reports Normal hearing present, Denies dental pain, Denies dysphagia, Denies hearing loss, Denies mouth pain, Denies odynophagia, Denies throat swelling, Denies tongue swelling and Reports other (Dentition adequate) Card Reports no additional complaints Resp Reports no additional complaints GI Details: Denies abdominal pain, Denies melena, Denies bloating, Denies hematochezia, Denies constipation, Denies GI cramping, Denies dysphagia, Denies excessive flatus, Denies early satiety, Reports heartburn, Denies diarrhea, Reports loose stools, Denies nausea, Denies odynophagia, Denies vomiting and Denies hematemesis Musc Reports abnormal gait and Reports muscle weakness Skin/Breast Denies pruritus, Denies lesions, Denies rash and Denies jaundice Neuro Reports Normal hearing present, Denies Abnormal speech present, Reports abnormal gait and Reports frequent falls Endo Denies fatigue Aller/Immun Denies throat swelling and Denies tongue swelling Physical Exam Vital Signs: Last Vital Signs Pulse 66 12/14/23 09:14 BP 96/51 L 12/14/23 09:14 BMI result Body Mass Index 25.2 Const General: cooperative, no acute distress, well developed and well groomed Nutritional Appearance: average body habitus and well nourished Orientation/consciousness: oriented to person, oriented to place and oriented to time Limitations: No language barrier HEENT Head: Yes normocephalic and Yes atraumatic Eyes General: appearance normal, both eyes and all related structures Pupils: Equal, round and reactive pupils present Neck Neck: Yes normal visual inspection and Yes no lymphadenopathy Thyroid: Thyroid normal Resp Effort & Inspection: normal respiratory effort and able to speak in complete sentences Auscultation: clear to auscultation bilaterally Cardio Rate: regular rate Rhythm: regular rhythm Heart sounds: Normal, physiologic split S2 sound present Peripheral pulses: radial pulses present and posterior tibial pulses present GI Inspection: No distended and No Abdominal panniculus present Palpation (GI): Soft to palpation, nontender, no guarding, not rigid and No hepatosplenomegaly present Percussion: Yes normal to percussion Auscultation: normal bowel sounds Rectal Exam - Female: deferred Skin General skin exam: no rashes or lesions noted, turgor normal, skin not dry, no jaundice, No spider nevi and no striae Rashes: no rashes Nails: normal Neuro General: oriented to person, oriented to place and oriented to time Cranial nerves: Yes Equal, round and reactive pupils present and Yes Normal hearing present Speech: No Abnormal speech present Extrem General: Yes normal to inspection, No clubbing, No cyanosis and No edema Psych Appearance: grossly normal and well kempt Mental Status: mental status grossly normal Speech and movement: Normal speech and movement present Affect: normal affect Attitude: cooperative Thought process: Normal thought process present and not confabulating Thought content: Normal thought content present Insight: Limited insight present (Psych) Judgement: Limited judgement present (Psych) Quality Reporting (2019) Adult ([facility] 138//69) Smoking risk assessment performed?: Yes Patient Tobacco Use Status: Current everyday Tobacco user Results Reviewed Results Reviewed: LABS: [facility] genetic study was not consistent with IBD RAST PANEL SHOWS NO SIGNIFICANT FOOD ALLERGIES COLONOSCOPY 11/30/23 Findings: Terminal Ileum: Not evaluated Cecum: Normal Ascending Colon: Normal Transverse Colon: Normal Descending Colon: Moderate diverticulosis Sigmoid Colon: Severe diverticulosis with luminal narrowing Rectum: Normal Ano-rectum: Moderate internal hemorrhoids Colon preparation: Excellent after some irrigation. Impression and Post Procedure Diagnosis: Colonoscopy Findings: No polyps were detected Random biopsies were obtained from the colon to check for microscopic colitis Moderate to severe diverticulosis seen in the left colon Moderate hemorrhoids on retroflexed exam. Plan: Pt has a FU appointment on 12/14/23 with Kristin Hicks NP, Consider further evaluation of suspected IBD with Capsule Endoscopy/ CT enterography Repeat Colonoscopy in 5 years due to a history of adenomatous colon polyps. BIOPSY Received: 11/30/23 Diagnosis Colon, random, biopsy: Colonic mucosa within normal limits Assessment & Plan Assessment & Plan (1) Alcohol dependence: Code(s): F10.20 - Alcohol dependence, uncomplicated Category: Medical Qualifiers: Substance use status: in remission Qualified Code(s): F10.21 - Alcohol dependence, in remission (2) Tubular adenoma of colon: Comment: 2020 scope 2 quite large polyps repeat in 3 years Code(s): D12.6 - Benign neoplasm of colon, unspecified Category: Medical (3) Alcohol abuse: Comment: Quit drinking in 2020 so far as of 05/2023 she is maintained her sobriety Code(s): F10.10 - Alcohol abuse, uncomplicated Category: Social Hx (4) Elevated fecal calprotectin: Code(s): R19.5 - Other fecal abnormalities Category: Medical (5) Diarrhea: Comment: Uncertain cause, no food allergies, responding well to budesonide question lymphocytic versus low-level IBD Code(s): R19.7 - Diarrhea, unspecified Category: Medical Plan She is agreeable to a 5 year follow-up depending on her health. The procedure was well tolerated. The results were explained and the patient is agreeable to the follow-up interval as stated. Education was provided to tell any 1st degree relatives about their findings to be sure that they are screened by age 45. Educated that they will be put on a recall list when it is time for their repeat scope but should they move out of state or away from the hospital they will need to remember along with their primary to repeat the procedure in a timely fashion to avoid any adverse complications. No other reversible causes of diarrhea, the difference with diagnosis is still uncertain this may be functional but it is also possible she has some low-level lymphocytic colitis or IBD that were not picking up since it responds well to budesonide and she has not elevated fecal calprotectin. Now she is still having post prandial BM's but not as watery - soft/formed to mushy. We had reduced her budesonide to 6 mg because of cost issues seems to be doing okay in satisfied so far me to adding this dose. She continues on budesonide, and loperamide. We stopped the dicyclomine because she had some eye blurring. Return office visit in 8 weeks Coding Level of Care Code Est Pt Level 3 (71804) Diagnoses Alcohol dependence in remission F10.21 Substance use status: in remission Tubular adenoma of colon D12.6 Alcohol abuse F10.10 Elevated fecal calprotectin R19.5 Diarrhea R19.7
== END 2023-12-14 09:50 | disposition home or self-care (01) ==
PROVIDERS: PCP Family Medicine; Visit Provider Nurse Practitioner
DX: F10.21 Alcohol dependence, in remission (principal); D12.6 Benign neoplasm of colon, unspecified; R19.5 Other fecal abnormalities; R19.7 Diarrhea, unspecified
CPT/HCPCS: 99213

== ENCOUNTER → 2023-12-14 09:10 | Outpatient (BNVA) | payer MEDICARE, SELFPAY | PROVIDERS: PCP Family Medicine; Visit Provider Nurse Practitioner | DX: R19.5 Other fecal abnormalities (principal); D12.6 Benign neoplasm of colon, unspecified; R19.7 Diarrhea, unspecified; F10.21 Alcohol dependence, in remission; Z98.890 Other specified postprocedural states | CPT/HCPCS: 99212 ==

== ENCOUNTER → 2024-01-22 12:30 | Outpatient (BNV) | payer MEDICARE, SELFPAY | PROVIDERS: PCP Family Medicine; Visit Provider Internal Medicine | DX: Z12.31 Encounter for screening mammogram for malignant neoplasm of breast (principal) | CPT/HCPCS: 77063; 77067 ==

== ENCOUNTER 2024-01-22 12:44 | Outpatient (REF) | payer MEDICARE, SELFPAY ==
--- NOTE | ~2024-01-22 | MM_ITS ---
EXAMINATION: BONE DENSITOMETRY CLINICAL INDICATION: Age-related osteoporosis without current pathological fracture. COMPARISON: Previous BD dated 02/03/2021 and baseline BD dated 05/28/2006. TECHNIQUE: Using a SparCode DXA System (software version: 13.1) manufactured by [employer], dual-energy x-ray absorptiometry was performed of the lumbar spine and left hip. The images are of good technical quality. Summary results are attached. FINDINGS: LEFT FEMUR, NECK: Current: BMD 0.780 g/cm2, Z-score -0.3, T-score -1.9, osteopenia. Prior: BMD 0.695 g/cm2. Baseline: BMD 0.858 g/cm2. LEFT FEMUR, TOTAL: Current: BMD 0.719 g/cm2, Z-score -1.0, T-score -2.3, osteopenia, 0.1% increase from previous, 17.2% decrease from baseline (<5% change is not significant). Prior: BMD 0.718 g/cm2. Baseline: BMD 0.868 g/cm2. AP SPINE L1-L4: Current: BMD 1.027 g/cm2, Z-score 0.2, T-score -1.3, osteopenia, 4.3% increase from previous, 12.6% increase from baseline (<5% change is not significant). Prior: BMD 0.985 g/cm2. Baseline: BMD 0.912 g/cm2. IDENTIFIED RISK FACTORS: Menopause, parental hip fracture, secondary osteoporosis (intestinal or bowel disease, not IBS). HISTORY OF FRACTURE: None listed. MEDICATIONS: Calcium supplements or multivitamin, vitamin D. MM/XR DEXA axial skeleton IMPRESSION: 1. DIAGNOSIS: Osteopenia based on the lowest T-score value of -2.3 in the total femur applying World Health Organization criteria. 2. 10-YEAR FRACTURE RISK PREDICTION, FRAX: Major osteoporotic fracture (clinical spine, forearm, hip or shoulder) 18.3%. Hip fracture 3.8%. 3. Treatment Recommendations: NOF guidelines recommend consideration for treatment in postmenopausal women and men age 50 and older presenting with the following: -A hip or vertebral (clinical or morphometric) fracture. -T-score less than or equal to -2.5 at the femoral neck or spine after appropriate evaluation to exclude secondary causes. -Low bone mass at the hip or spine and a 10-year fracture probability by FRAX of greater than or equal to 3% for hip fracture or greater than or equal to 20% for major osteoporotic fracture based on the [place] adapted WHO algorithm. 4. Other Recommendations: All treatment decisions require clinical judgment and consideration of individual patient factors, including patient preferences, comorbidities, previous drug use, risk factors not captured in the FRAX model (e.g. frailty, falls, vitamin D deficiency, increased bone turnover, interval significant decline in bone density) and possible under or overestimation of fracture risk by FRAX. Additional medical evaluation for secondary cause of low bone mineral density may be appropriate. FUTURE SCAN RECOMMENDATION: People with diagnosed cases of osteoporosis or at high risk for fracture should have regular bone mineral density tests. For patients eligible for Medicare, routine testing is allowed once every 2 years. The testing frequency can be increased to one year for patients who have rapidly progressing disease, those who are receiving or discontinuing medical therapy to restore bone mass, or have additional risk factors. Electronically signed by: Cuco Vogel MD 01/22/2024 05:02 PM SAMI SANDHU
== END 2024-01-22 12:45 | disposition home or self-care (01) ==
LOC: HO.MAMMO 12:44
PROVIDERS: PCP Family Medicine; Visit Provider Family Medicine
DX: Z12.31 Encounter for screening mammogram for malignant neoplasm of breast (principal); M81.0 Age-related osteoporosis without current pathological fracture
CPT/HCPCS: 77063; 77067; 77080

== ENCOUNTER 2024-02-15 11:33 | Outpatient (AMB) | payer MEDICARE, SELFPAY ==
[2024-02-15 11:38] VITALS: BP 75/51; PULSE 71
--- NOTE | 2024-02-15 11:38 | A.OFFVIS_ITS ---
Vital Signs 02/15/24 11:38 Height 5 ft 6 in BP 75/51 L Blood Pressure Location Lt brachial Position Sitting Pulse 71 Intake Visit Reasons: 8 week follow up Intake Note: Patient in office today in follow up of abdominal pain. CC: Patient reports RUQ abdominal pain resolved now. Per patient her BMs her stools are better now. Rehabilitation Aide/Scheduler Required: No Accompanied by: Self / Same As Patient Allergies aspirin [ASA] Allergy (Severe, Verified 02/15/24 11:42) Swelling, facial Seasonal Allergies Allergy (Severe, Verified 02/15/24 11:42) Unknown TREE POLLEN Allergy (Intermediate, Uncoded 05/24/23 12:16) Nasal congestion HPI HPI 8 week follow up: Details: No other reversible causes of diarrhea, so this is functional. Now she is still having post prandial BM's but not as watery - soft/formed to mushy. . [facility] genetic study was not consistent with IBD Assessment & Plan (1) Alcohol dependence: Code(s): F10.20 - Alcohol dependence, uncomplicated Category: Medical Qualifiers: Substance use status: in remission Qualified Code(s): F10.21 - Alcohol dependence, in remission (2) Tubular adenoma of colon: Comment: 2020 scope 2 quite large polyps repeat in 3 years Code(s): D12.6 - Benign neoplasm of colon, unspecified Category: Medical (3) Alcohol abuse: Comment: Quit drinking in 2020 so far as of 05/2023 she is maintained her sobriety Code(s): F10.10 - Alcohol abuse, uncomplicated Category: Social Hx TODAY'S VISIT SHE IS ON BUDESONIDE CURRENTLY tapered recently from 9 mg down to 6 mg a day she also uses Imodium every. We reduce the dose more because of the expense of the budesonide than any clinical reasoning. However, she misunderstood me and has not taken the budesonide since I last ssaw her, abouit a month and a half. She has used imiodium sometimes. Her stools are mushy, but she has better control than when we started. Will hold budesonide and add 1 g carafate qnoon for now. ROV next avalab. [facility] Medical History (Updated 02/15/24 @ 11:12 by JUAN Morris) Lower extremity weakness Physical deconditioning Hx of thyroid disease Upper abdominal pain Shoulder pain Neck pain on right side Screening for cervical cancer Fall Upper back pain Alcohol dependence Pre-op examination Screening for osteoporosis Postprandial diarrhea Toe pain, right Abnormal x-ray Annual physical exam Right anterior shoulder pain Abnormal x-ray of bone Immunization counseling Abdominal pain Left foot pain Rectal bleeding Left knee pain Left shoulder pain Left wrist pain Screening for breast cancer Screening for colon cancer Adult general medical exam Stye H/O heartburn Wears dentures Anxiety and depression HTN (hypertension) COPD (chronic obstructive pulmonary disease) History of colon polyps Surgical History Hx of arthroscopic knee surgery Hx of colonoscopy History of orbit decompression History of palate surgery Family History Mother No problems noted. Father No problems noted. Other Substance use disorder Social History Household Members: Family Housing: House Are you a primary healthcare management to a significant other at home: No Do you presently have visiting nurse or other home services: No Alcohol intake: current Alcohol intake frequency: former alcohol drinker Alcohol type: wine Patient Tobacco Use Status: Current everyday Tobacco user Tobacco use type: Smokeless Tobacco e-Cigarette/Vaping Use: Currently Using Second Hand Smoke Exposure: No service: No Current occupational status: retired Current occupational exposures/hazards: No Cognitive needs: No Hearing needs: No Vision needs: Yes Review of Systems Const Denies fatigue, Denies fever(s), Denies night sweats, Denies poor appetite and Denies weight loss ENT Reports Normal hearing present, Denies dysphagia, Denies odynophagia, Denies throat swelling and Denies tongue swelling Card Reports no additional complaints Resp Reports no additional complaints GI Details: Denies abdominal pain, Denies melena, Denies bloating, Denies hematochezia, Denies constipation, Denies GI cramping, Denies dysphagia, Denies excessive flatus, Denies early satiety, Denies heartburn, Denies diarrhea, Reports loose stools, Denies nausea, Denies odynophagia, Denies vomiting and Denies hematemesis Skin/Breast Denies pruritus, Denies lesions, Denies rash and Denies jaundice Neuro Reports Normal hearing present and Denies Abnormal speech present Endo Denies fatigue Aller/Immun Denies throat swelling and Denies tongue swelling Physical Exam Vital Signs: Last Vital Signs Pulse 71 02/15/24 11:38 BP 75/51 L 02/15/24 11:38 Const General: cooperative, no acute distress, well developed and well groomed Nutritional Appearance: well nourished Orientation/consciousness: oriented to person, oriented to place and oriented to time Limitations: No language barrier HEENT Head: Yes normocephalic and Yes atraumatic Eyes General: appearance normal, both eyes and all related structures Pupils: Equal, round and reactive pupils present Neck Neck: Yes normal visual inspection and Yes no lymphadenopathy Thyroid: Thyroid normal Resp Effort & Inspection: normal respiratory effort and able to speak in complete sentences Auscultation: clear to auscultation bilaterally Cardio Rate: regular rate Rhythm: regular rhythm Heart sounds: Normal, physiologic split S2 sound present Peripheral pulses: radial pulses present and posterior tibial pulses present GI Inspection: No distended and No Abdominal panniculus present Palpation (GI): Soft to palpation, nontender, no guarding, not rigid and No hepatosplenomegaly present Percussion: Yes normal to percussion Auscultation: normal bowel sounds Rectal Exam - Female: deferred Skin General skin exam: no rashes or lesions noted, turgor normal, skin not dry, no jaundice, No spider nevi and no striae Rashes: no rashes Nails: normal Neuro General: oriented to person, oriented to place and oriented to time Cranial nerves: Yes Equal, round and reactive pupils present and Yes Normal hearing present Speech: No Abnormal speech present Extrem General: Yes normal to inspection, No clubbing, No cyanosis and No edema Psych Appearance: grossly normal and well kempt Mental Status: mental status grossly normal Speech and movement: Normal speech and movement present Affect: normal affect Attitude: cooperative Thought process: Normal thought process present and not confabulating Thought content: Normal thought content present Insight: Limited insight present (Psych) Judgement: Limited judgement present (Psych) Quality Reporting (2019) Adult ([facility] 138/2/22/69) Smoking risk assessment performed?: Yes Patient Tobacco Use Status: Current everyday Tobacco user Assessment & Plan Assessment & Plan (1) Diarrhea: Comment: Uncertain cause, no food allergies, responding well to budesonide question lymphocytic versus low-level IBD Code(s): R19.7 - Diarrhea, unspecified Category: Medical Plan SHE IS ON BUDESONIDE CURRENTLY tapered recently from 9 mg down to 6 mg a day she also uses Imodium every. We reduce the dose more because of the expense of the budesonide than any clinical reasoning. However, she misunderstood me and has not taken the budesonide since I last saw her, about a month and a half. She has used imiodium sometimes. Her stools are mushy, but she has better control than when we started. Will hold budesonide and add 1 g carafate qnoon for now. ROV next avalab. Medications: New sucralfate (Carafate) 1 g PO .qhs 30 tabs 6RF R19.7 - Diarrhea, unspecified Discontinued dicyclomine Discontinued Reason: Doctor's Order 20 mg PO QID 30 days 120 tabs 6RF R19.7 - Diarrhea, unspecified On Hold budesonide DR-ER Hold Comment: Doctor's Order 6 mg (2 x 3 mg) PO DAILY 30 days 60 ea 6RF R19.5 - Other fecal abnormalities Coding Level of Care Code Est Pt Level 3 (38603) Diagnoses Diarrhea R19.7
== END 2024-02-15 16:48 | disposition home or self-care (01) ==
PROVIDERS: PCP Family Medicine; Visit Provider Nurse Practitioner
DX: R19.7 Diarrhea, unspecified (principal)
CPT/HCPCS: 99213

== ENCOUNTER → 2024-02-15 11:33 | Outpatient (BNVA) | payer MEDICARE, SELFPAY | PROVIDERS: PCP Family Medicine; Visit Provider Nurse Practitioner | DX: R19.7 Diarrhea, unspecified (principal) | CPT/HCPCS: 99212 ==

== ENCOUNTER 2024-03-03 12:25 | Outpatient (REF) | payer MEDICARE, SELFPAY ==
--- NOTE | ~2024-03-03 | XR_ITS ---
EXAMINATION: XR WRIST 3 OR MORE VIEWS RIGHT HISTORY: W19.XXXA - Unspecified fall, initial encounter COMPARISON: Correlation is made with plain films of the right and dated 11/14/2016. FINDINGS: Four views of the right wrist including a scaphoid view are submitted. The bones are osteopenic. There is no fracture or dislocation. The joint spaces are preserved. The soft tissues are unremarkable. XR/XR wrist RT min 3V IMPRESSION: Osteopenia. Otherwise unremarkable examination of the right wrist. Electronically signed by: Juan Pablo Kay MD 03/03/2024 03:24 PM EST
--- NOTE | ~2024-03-03 | XR_ITS ---
EXAMINATION: XR KNEE 4 OR MORE VIEWS LEFT HISTORY: M81.0 - Age-related osteoporosis without current pathological fracture COMPARISON: Comparison is made with the prior examination dated 01/12/2021. FINDINGS: Five views of the left knee are submitted. The bones are osteopenic. There is no fracture or dislocation. Again seen is mild narrowing of the medial compartment. The soft tissues are unremarkable. There is no joint effusion. XR/XR knee LT 4V IMPRESSION: Osteopenia. Mild narrowing of the medial compartment. Electronically signed by: Juan Pablo aKy MD 03/03/2024 03:23 PM EST
[2024-03-03 14:10] LABS: Alanine Aminotransferase 33 U/L (0-31); Albumin Level 4.3 g/dL (3.5-5.0); Alkaline Phosphatase 93 U/L (39-117); Anion Gap 10 (12-20); Aspartate Amino Transferase 33 U/L (5-31); Bilirubin Total 0.2 mg/dL (0.0-1.0); Blood Urea Nitrogen 31 mg/dL (9-16); Carbon Dioxide 20 mmol/L (22-29); Chloride 111 mmol/L (96-108); Cholesterol 175 mg/dL (<200); Estimated Glomerular Filt Rate 37; Glucose Fasting 90 mg/dL (60-99); HDL Cholesterol 59 mg/dL (>40); LDL Cholesterol Calculated 99 mg/dL (<100); Sodium 136 mmol/L (135-145); TSH reflex Free T4 4.21 uIU/mL (0.32-4.0); Total Protein 7.5 g/dL (6.5-8.0); Triglycerides 85 mg/dL (<150)
[2024-03-03 14:43] LABS: Free T4 (Free Thyroxine) 1.07 ng/dL (0.71-1.85)
== END 2024-03-03 12:26 | disposition home or self-care (01) ==
LOC: HO.XRAY 12:25
PROVIDERS: PCP Family Medicine; Visit Provider Nurse Practitioner Family
DX: M81.0 Age-related osteoporosis without current pathological fracture (principal); N28.9 Disorder of kidney and ureter, unspecified; E78.00 Pure hypercholesterolemia, unspecified; M81.8 Other osteoporosis without current pathological fracture; E03.9 Hypothyroidism, unspecified
CPT/HCPCS: 36415; 73110; 73564; 80053; 80061; 82306; 84439; 84443

== ENCOUNTER → 2024-03-03 12:48 | Outpatient (BNV) | payer MEDICARE, SELFPAY | PROVIDERS: PCP Family Medicine; Visit Provider Radiology Diagnostic Radiology | DX: M85.862 Other specified disorders of bone density and structure, left lower leg (principal); M85.841 Other specified disorders of bone density and structure, right hand | CPT/HCPCS: 73110; 73564 ==

== ENCOUNTER 2024-03-05 11:21 | Outpatient (AMB) | payer MEDICARE, SELFPAY ==
--- NOTE | 2024-03-05 11:28 | MHC.PC.OV ---
Vital Signs 03/05/24 11:34 Height 5 ft 6 in Weight 158 lb BMI 25.5 BP 88/50 L Blood Pressure Location Rt brachial Position Sitting Respiration 12 Pulse 75 Pulse Source Pulse Oximeter Temp 97.4 F Temp Source Oral Intake Visit Reasons: chronic conditions Intake Note: f/u for imaging and b/p Allergies aspirin [ASA] Allergy (Severe, Verified 03/05/24 11:30) Swelling, facial Seasonal Allergies Allergy (Severe, Verified 03/05/24 11:30) Unknown TREE POLLEN Allergy (Intermediate, Uncoded 05/24/23 12:16) Nasal congestion Tobacco use date assessed: 08/22/23 Dental Screening Dental Screen Date: 02/28/23 HPI chronic conditions HPI Details 68 y/o female presents to f/u chronic conditions. Mammogram 01/22/24 negative. Bone density 01/22/24 showed some osteopenia. Reports diarrhea for a few weeks. Blood pressure today 110/60, 75p. She is on lisinopril 40mg, amlodipine 5mg daily. Had a recent fall and had hurt her wrist and knees. X-rays showed no fractures. [facility] Medical History (Updated 03/05/24 @ 11:30 by Levi Valentin) Screening for breast cancer Left knee pain Lower extremity weakness Physical deconditioning Hx of thyroid disease Upper abdominal pain Shoulder pain Neck pain on right side Screening for cervical cancer Fall Upper back pain Alcohol dependence Pre-op examination Screening for osteoporosis Postprandial diarrhea Toe pain, right Abnormal x-ray Annual physical exam Right anterior shoulder pain Abnormal x-ray of bone Immunization counseling Abdominal pain Left foot pain Rectal bleeding Left shoulder pain Left wrist pain Screening for colon cancer Adult general medical exam Stye H/O heartburn Wears dentures Anxiety and depression HTN (hypertension) COPD (chronic obstructive pulmonary disease) History of colon polyps Surgical History Hx of arthroscopic knee surgery Hx of colonoscopy History of orbit decompression History of palate surgery Family History Mother No problems noted. Father No problems noted. Other Substance use disorder Social History Household Members: Family Housing: House Are you a primary childcare worker to a significant other at home: No Do you presently have visiting nurse or other home services: No Alcohol intake: current Alcohol intake frequency: former alcohol drinker Alcohol type: wine Patient Tobacco Use Status: Current everyday Tobacco user Tobacco use type: Smokeless Tobacco e-Cigarette/Vaping Use: Currently Using Second Hand Smoke Exposure: No service: No Current occupational status: retired Current occupational exposures/hazards: No Cognitive needs: No Hearing needs: No Vision needs: Yes Questionnaire PHQ-9 Over the last 2 weeks, how often have you been bothered by any of the following problems? 1. Little interest or pleasure in doing things: several days 2. Feeling down, depressed, or hopeless: several days 3. Trouble falling or staying asleep, or sleeping too much: several days 4. Feeling tired or having little energy: several days 5. Poor appetite or overeating: several days 6. Feeling bad about yourself - or that you are a failure or have let yourself or your family down: several days 7. Trouble concentrating on things, such as reading the newspaper or watching television: not at all 8. Moving or speaking so slowly that other people could have noticed. Or the opposite - being so fidgety or restless that you have been moving around a lot more than usual: not at all 9. Thoughts that you would be better off or of hurting yourself in some way: not at all Total score: 6 Source: Developed by Drs. Juan Pablo Ramírez, Kari Richards, Morgan Alanis and colleagues, with an educational dahiana from [employer]. Thrive Questionnaire Date Thrive assessed: 02/28/23 I am a: Patient What is your living situation today?: I have a steady place to live Within the past 12 months, did the food you bought not last and you didn't have the money to get more?: Never true Within the past 12 months, did you worry whether your food would run out before you got money to buy more?: I choose not to answer this question Do you have trouble paying for medicines?: I choose not to answer this question Do you have trouble getting transportation to medical appointments?: No Do you have trouble paying your heating and electricity bill?: I choose not to answer this question Do you have trouble taking care of your child, family member or friend?: No Do you have trouble with day-to-day activities such as bathing, preparing meals, shopping, managing finances, etc.?: No Are you currently unemployed and looking for a job?: No Are you interested in more education?: Yes Please select the resources that you would like help with: None Currently or been in a relationship where the following occur: No concerns reported THRIVE Score: 0 AUDIT C Alcohol Use Questionnaire (AUDIT-C) 1. How often do you have a drink containing alcohol?: Never Total Score: 0 ALKA-7 AMB Questionnaire ALKA-7 Date ALKA - 7 assessed: 02/28/23 Feeling nervous, anxious, or on edge: 1 = Several days Not being able to stop or control worryin = Several days Worrying too much about different things: 1 = Several days Trouble relaxin = Several days Being so restless that it is hard to sit still: 0 = Not at all Becoming easily annoyed or irritable: 0 = Not at all Feeling afraid as if something awful might happen: 0 = Not at all Total ALKA-7 score (0-4 normal; 5-9 mild; 10-14 moderate; 15-21 severe): 4 Source: Developed by Drs. Juan Pablo Ramírez, Kari Richards, Morgan Alanis and colleagues, with an educational dahiana from [employer]. Review of Systems Const Denies chills, Denies fatigue, Denies fever(s), Denies headache(s) and Denies weakness ENT Denies dizziness and Denies headache(s) Card Denies dyspnea Resp Denies cough, Denies dyspnea, Denies wheezing and Denies other (shortness of breath) Musc Denies numbness and Denies tingling Neuro Denies dizziness, Denies headache(s), Denies numbness, Denies tingling and Denies weakness Psych Denies anxiety and Denies depression Endo Denies fatigue Aller/Immun Denies wheezing Physical exam (Primary Care) Vital Signs: Last Vital Signs Temp 97.4 F 03/05/24 11:34 Pulse 75 03/05/24 11:34 Resp 12 03/05/24 11:34 BP 110/60 03/05/24 11:34 BMI result Body Mass Index 25.5 Tobacco/Smoking Status: Tobacco use Status Tobacco use date assessed 08/22/23 03/05/24 11:29 Patient Tobacco Use Status Current everyday Tobacco 03/05/24 11:29 Tobacco use type Smokeless Tobacco 03/05/24 11:29 e-Cigarette/Vaping Use Currently Using 03/05/24 11:29 PHQ-9: PHQ-9 Score PHQ-9: Total score 6 03/05/24 11:29 Thrive Assessment: Date of Thrive Assessment Date Thrive assessed 02/28/23 03/05/24 11:29 Currently or been in a relationship where the following occur: No concerns reported Const General: well developed; No acute distress Nutritional Appearance: well nourished Orientation/consciousness: patient oriented x3 HENMT Head: Yes normocephalic and Yes atraumatic Eyes General: appearance normal, both eyes and all related structures Pupils: Equal, round and reactive pupils present EOM: EOMs intact bilaterally Resp Effort & Inspection: normal respiratory effort Neuro General: patient oriented x3 and gait normal Cranial nerves: Yes Equal, round and reactive pupils present Psych Affect: normal affect Coding Level of Care Code Est Pt Level 4 (49798) Diagnoses Diarrhea R19.7 Osteopenia M85.80 Essential hypertension I10 Right wrist pain M25.531 Screening for breast cancer Z12.39 Hordeolum externum of left upper eyelid H00.014 Eyelid: upper Laterality: left Left knee pain M25.562 Assessment & Plan Assessment & Plan (1) Diarrhea: Comment: Uncertain cause, no food allergies, responding well to budesonide question lymphocytic versus low-level IBD Code(s): R19.7 - Diarrhea, unspecified Category: Medical Plan: Increase?hydration Continue?to?follow-up?with?Gastroenterology. Use?Imodium?and?Carafate?as?recommended (2) Osteopenia: Code(s): M85.80 - Other specified disorders of bone density and structure, unspecified site Category: Medical Plan: History?of?osteoporosis on?bone?density?testing?in?2020 Lowest T score -2.5 Patient?had?bone?density?testing?at?the?end?of?2023?and?lowest?T-score?is?-2.3; osteopenia. Improved Will?continue?to?monitor?every?2?years (3) Essential hypertension: Code(s): I10 - Essential (primary) hypertension Category: Medical Plan: Blood?pressure?is?running?too?low. Will?have?her?decrease?amlodipine?from?5?mg?daily?to?2.5?mg?daily.??Continue?lisinopril?as?prescribed. Hydrate?well (4) Right wrist pain: Code(s): M25.531 - Pain in right wrist Category: Medical Plan: Right?wrist?pain?after?a?fall. This?has?improved X-ray?was?negative?for?acute?injury (5) Screening for breast cancer: Code(s): Z12.39 - Encounter for other screening for malignant neoplasm of breast Category: Medical Plan: Recent?mammogram?negative Will?continue?annual?screening (6) Stye: Comment: recurrent Code(s): H00.019 - Hordeolum externum unspecified eye, unspecified eyelid Category: Medical Qualifiers: Eyelid: upper Laterality: left Qualified Code(s): H00.014 - Hordeolum externum left upper eyelid Plan: Stye?at?left?eye?and?also?vision?changes She?was?referred?to?[place]?by?K.O. (7) Left knee pain: Code(s): M25.562 - Pain in left knee Category: Medical Plan: S/p?fall Improving X-ray?shows?mild?medial?compartment?narrowing?but?no?acute?changes. Medications: Changed From amlodipine 5 mg PO DAILY 90 tabs 3RF I10 - Essential (primary) hypertension To amlodipine 2.5 mg PO DAILY 90 tabs 3RF 90 days I10 - Essential (primary) hypertension
[2024-03-05 11:34] VITALS: BP 88/50; PULSE 75; RESP 12; TEMP 36.3; BMI 25.5
== END 2024-03-05 11:52 | disposition home or self-care (01) ==
PROVIDERS: PCP Family Medicine; Visit Provider Family Medicine
DX: R19.7 Diarrhea, unspecified (principal); M85.80 Other specified disorders of bone density and structure, unspecified site; I10 Essential (primary) hypertension; M25.531 Pain in right wrist; Z12.39 Encounter for other screening for malignant neoplasm of breast; H00.014 Hordeolum externum left upper eyelid; M25.562 Pain in left knee

== ENCOUNTER → 2024-03-05 11:21 | Outpatient (BNVA) | payer MEDICARE, SELFPAY | PROVIDERS: PCP Family Medicine; Visit Provider Family Medicine | DX: R19.7 Diarrhea, unspecified (principal); M85.80 Other specified disorders of bone density and structure, unspecified site; I10 Essential (primary) hypertension; M25.531 Pain in right wrist; H00.014 Hordeolum externum left upper eyelid; M25.562 Pain in left knee | CPT/HCPCS: 99212 ==

== ENCOUNTER 2024-04-10 13:39 | Outpatient (AMB) | payer MEDICARE, SELFPAY ==
--- NOTE | 2024-04-10 13:42 | MHC.PC.OV ---
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 Required: No Allergies aspirin [ASA] Allergy (Severe, Verified 04/10/24 13:45) Swelling, facial Seasonal Allergies Allergy (Severe, Verified 04/10/24 13:45) Unknown TREE POLLEN Allergy (Intermediate, Uncoded 05/24/23 12:16) Nasal congestion Medication List - Last Reconciled 04/10/24 by Ladarius Nelson MD acetaminophen ER (Tylenol 8 Hour) 650 mg PO Q8H PRN albuterol sulfate 90 mcg/actuation 2 puffs inhalation Q4-6H PRN 1 month amlodipine 2.5 mg PO DAILY 90 days atorvastatin 10 mg PO BEDTIME [address]-ER 6 mg (2 x 3 mg) PO DAILY 30 days cholecalciferol (vitamin D3) 500 mcg PO DAILY desonide 0.05% 1 appl topical BID-QID PRN hydroxyzine HCl 25 mg PO BID PRN 30 days levothyroxine 88 mcg PO DAILY 30 days lisinopril 40 mg PO DAILY 90 days melatonin 5 mg PO BEDTIME PRN 30 days sertraline (Zoloft) 150 mg (1.5 x 100 mg) PO DAILY 30 days sucralfate (Carafate) 1 g PO .qhs trazodone 50 - 100 mg (1 - 2 x 50 mg) PO BEDTIME PRN 30 days vitamin K2 100 mcg PO DAILY Tobacco use date assessed: 08/22/23 Dental Screening Dental Screen Date: 02/28/23 HPI f/u hypertension HPI Details Patient?returns?to?follow-up?hypertension?in?recent?low?blood?pressures Decreased?amlodipine?from?5?mg?daily?to?2.5?mg?daily?and?continued?lisinopril?as?prescribed at?prior?visit. Blood?pressure?today?110/60. She?says?blood?pressures?at?home?have?been?around?the?same. No?longer?feels?dizzy?or?weak. Pt?also notes she quit drinking PFSH Medical History (Updated 03/05/24 @ 11:30 by Levi Valentin) Screening for breast cancer Left knee pain Lower extremity weakness Physical deconditioning Hx of thyroid disease Upper abdominal pain Shoulder pain Neck pain on right side Screening for cervical cancer Fall Upper back pain Alcohol dependence Pre-op examination Screening for osteoporosis Postprandial diarrhea Toe pain, right Abnormal x-ray Annual physical exam Right anterior shoulder pain Abnormal x-ray of bone Immunization counseling Abdominal pain Left foot pain Rectal bleeding Left shoulder pain Left wrist pain Screening for colon cancer Adult general medical exam Stye H/O heartburn Wears dentures Anxiety and depression HTN (hypertension) COPD (chronic obstructive pulmonary disease) History of colon polyps Surgical History Hx of arthroscopic knee surgery Hx of colonoscopy History of orbit decompression History of palate surgery Family History Mother No problems noted. Father No problems noted. Other Substance use disorder Social History Household Members: Family Housing: House Are you a primary lawn caretaker to a significant other at home: No Do you presently have visiting nurse or other home services: No Alcohol intake: current Alcohol intake frequency: former alcohol drinker Alcohol type: wine Patient Tobacco Use Status: Current everyday Tobacco user Tobacco use type: Smokeless Tobacco e-Cigarette/Vaping Use: Currently Using Second Hand Smoke Exposure: No service: No Current occupational status: retired Current occupational exposures/hazards: No Cognitive needs: No Hearing needs: No Vision needs: Yes Questionnaire Thrive Questionnaire Date Thrive assessed: 03/05/24 I am a: Patient What is your living situation today?: I have a steady place to live Within the past 12 months, did the food you bought not last and you didn't have the money to get more?: Never true Within the past 12 months, did you worry whether your food would run out before you got money to buy more?: I choose not to answer this question Do you have trouble paying for medicines?: I choose not to answer this question Do you have trouble getting transportation to medical appointments?: No Do you have trouble paying your heating and electricity bill?: I choose not to answer this question Do you have trouble taking care of your child, family member or friend?: No Do you have trouble with day-to-day activities such as bathing, preparing meals, shopping, managing finances, etc.?: No Are you currently unemployed and looking for a job?: No Are you interested in more education?: Yes Please select the resources that you would like help with: None Currently or been in a relationship where the following occur: No concerns reported THRIVE Score: 0 ALKA-7 AMB Questionnaire ALKA-7 Date ALKA - 7 assessed: 02/28/23 Source: Developed by Drs. Juan Pablo Ramírez, Kari Richards, Morgan Alanis and colleagues, with an educational dahiana from [employer]. Review of Systems Const Denies chills, Denies fatigue, Denies fever(s), Denies headache(s) and Denies weakness ENT Denies dizziness and Denies headache(s) Card Denies chest pain, Denies lightheadedness, Denies dyspnea and Denies other (Palpitations) Resp Denies cough, Denies dyspnea, Denies wheezing and Denies other ( shortness of breath) Musc Denies numbness and Denies tingling Neuro Denies dizziness, Denies headache(s), Denies numbness, Denies tingling, Denies paresthesias and Denies weakness Psych Denies anxiety and Denies depression Endo Denies fatigue Aller/Immun Denies wheezing Physical exam (Primary Care) Vital Signs: Last Vital Signs Temp 97.6 F 04/10/24 13:47 Pulse 74 04/10/24 13:47 Resp 14 04/10/24 13:47 BP 110/60 04/10/24 13:47 Pulse Ox 97 04/10/24 13:47 Oxygen Delivery Method Room Air 04/10/24 13:47 BMI result Body Mass Index 25.7 Tobacco/Smoking Status: Tobacco use Status Tobacco use date assessed 08/22/23 04/10/24 13:43 Patient Tobacco Use Status Current everyday Tobacco 04/10/24 13:43 Tobacco use type Smokeless Tobacco 04/10/24 13:43 e-Cigarette/Vaping Use Currently Using 04/10/24 13:43 Thrive Assessment: Date of Thrive Assessment Date Thrive assessed 03/05/24 04/10/24 13:43 Currently or been in a relationship where the following occur: No concerns reported Const General: no acute distress and well developed Nutritional Appearance: well nourished Orientation/consciousness: patient oriented x3 [facility] Head: Yes normocephalic and Yes atraumatic Eyes General: appearance normal, both eyes and all related structures Pupils: Equal, round and reactive pupils present EOM: EOMs intact bilaterally Resp Effort & Inspection: normal respiratory effort Auscultation: clear to auscultation bilaterally Cardio Rate: regular rate Rhythm: regular rhythm Heart sounds: S1 normal heart sound present, S2 normal heart sound present, no gallops, no murmurs and no rubs Neuro General: patient oriented x3 and gait normal Cranial nerves: Yes Equal, round and reactive pupils present Psych Affect: normal affect Coding Level of Care Code Est Pt Level 3 (11473) Diagnoses Essential hypertension I10 Alcohol dependence in remission F10.21 Substance use status: in remission Assessment & Plan Assessment & Plan (1) Essential hypertension: Code(s): I10 - Essential (primary) hypertension Category: Medical Plan: Blood?pressure?well?controlled?and?no?low?blood?pressure?is.??Goal?is?less?than?140/90 Continue?current?medication?regimen (2) Alcohol dependence: Code(s): F10.20 - Alcohol dependence, uncomplicated Category: Medical Qualifiers: Substance use status: in remission Qualified Code(s): F10.21 - Alcohol dependence, in remission Plan: Patient?notes?that?she?stopped?drinking?and?I?congratulated?her
[2024-04-10 13:47] VITALS: BP 110/60; PULSE 74; RESP 14; TEMP 36.4; O2SAT 97; BMI 25.7
== END 2024-04-10 14:26 | disposition home or self-care (01) ==
PROVIDERS: PCP Family Medicine; Visit Provider Family Medicine
DX: I10 Essential (primary) hypertension (principal); F10.21 Alcohol dependence, in remission

== ENCOUNTER → 2024-04-10 13:39 | Outpatient (BNVA) | payer MEDICARE, SELFPAY | PROVIDERS: PCP Family Medicine; Visit Provider Family Medicine | DX: I10 Essential (primary) hypertension (principal); F10.21 Alcohol dependence, in remission | CPT/HCPCS: 99212 ==

== ENCOUNTER 2024-07-14 14:59 | Outpatient (AMB) | payer MEDICARE, SELFPAY ==
--- NOTE | 2024-07-14 15:01 | A.OFFPC_ITS ---
Vital Signs 07/14/24 15:04 Height 5 ft 6 in Weight 157 lb BMI 25.3 BP 110/60 Blood Pressure Location Lt brachial Position Sitting Respiration 16 Pulse 70 Pulse Source Pulse Oximeter Temp 97.9 F Temp Source Oral Pulse Oximetry (%) 97 Oxygen Delivery Method Room Air Intake Visit Reasons: f/u hypertension Intake Note: patient is scheduled for htn follow up Corrosion Prevention Metal Sprayer Required: No Allergies aspirin [ASA] Allergy (Severe, Verified 07/14/24 15:02) Swelling, facial Seasonal Allergies Allergy (Severe, Verified 07/14/24 15:02) Unknown TREE POLLEN Allergy (Intermediate, Uncoded 05/24/23 12:16) Nasal congestion Medication List - Last Reconciled 07/14/24 by Ladarius Nelson MD acetaminophen ER (Tylenol 8 Hour) 650 mg PO Q8H PRN albuterol sulfate 90 mcg/actuation 2 puffs inhalation Q4-6H PRN 1 month amlodipine 2.5 mg PO DAILY 90 days atorvastatin 10 mg PO BEDTIME [address]-ER 6 mg (2 x 3 mg) PO DAILY 30 days cholecalciferol (vitamin D3) 500 mcg PO DAILY desonide 0.05% 1 appl topical BID-QID PRN hydroxyzine HCl 25 mg PO BID PRN 30 days levothyroxine 88 mcg PO DAILY 30 days lisinopril 40 mg PO DAILY 90 days melatonin 5 mg PO BEDTIME PRN 30 days sertraline (Zoloft) 150 mg (1.5 x 100 mg) PO DAILY 30 days sucralfate (Carafate) 1 g PO .qhs trazodone 50 - 100 mg (1 - 2 x 50 mg) PO BEDTIME PRN 30 days vitamin K2 100 mcg PO DAILY Tobacco use date assessed: 08/22/23 Dental Screening Dental Screen Date: 02/28/23 HPI f/u hypertension HPI Details 68 y/o female presents to f/u hypertensi on. Blood pressure today 110/60, 70p. She is on lisinopril 40mg, amlodipine 2.5mg daily. [facility] Medical History (Updated 03/05/24 @ 11:30 by Levi Valentin) Screening for breast cancer Left knee pain Lower extremity weakness Physical deconditioning Hx of thyroid disease Upper abdominal pain Shoulder pain Neck pain on right side Screening for cervical cancer Fall Upper back pain Alcohol dependence Pre-op examination Screening for osteoporosis Postprandial diarrhea Toe pain, right Abnormal x-ray Annual physical exam Right anterior shoulder pain Abnormal x-ray of bone Immunization counseling Abdominal pain Left foot pain Rectal bleeding Left shoulder pain Left wrist pain Screening for colon cancer Adult general medical exam Stye H/O heartburn Wears dentures Anxiety and depression HTN (hypertension) COPD (chronic obstructive pulmonary disease) History of colon polyps Surgical History Hx of arthroscopic knee surgery Hx of colonoscopy History of orbit decompression History of palate surgery Family History Mother No problems noted. Father No problems noted. Other Substance use disorder Social History Household Members: Family Housing: House Are you a primary palliative care specialist to a significant other at home: No Do you presently have visiting nurse or other home services: No Alcohol intake: current Alcohol intake frequency: former alcohol drinker Alcohol type: wine Patient Tobacco Use Status: Current everyday Tobacco user Tobacco use type: Smokeless Tobacco e-Cigarette/Vaping Use: Currently Using Second Hand Smoke Exposure: No service: No Current occupational status: retired Current occupational exposures/hazards: No Cognitive needs: No Hearing needs: No Vision needs: Yes Questionnaire Thrive Questionnaire Date Thrive assessed: 03/05/24 ALKA-7 AMB Questionnaire ALKA-7 Date ALKA - 7 assessed: 02/28/23 Source: Developed by Drs. Juan Pablo Ramírez, Kari Richards, Morgan Alanis and colleagues, with an educational dahiana from [employer]. Review of Systems Const Denies chills, Denies fatigue, Denies fever(s), Denies headache(s) and Denies weakness ENT Denies dizziness and Denies headache(s) Card Denies dyspnea Resp Denies cough, Denies dyspnea, Denies wheezing and Denies other (shortness of breath) Musc Denies numbness and Denies tingling Neuro Denies dizziness, Denies headache(s), Denies numbness, Denies tingling and Denies weakness Psych Denies anxiety and Denies depression Endo Denies fatigue Aller/Immun Denies wheezing Physical exam (Primary Care) Vital Signs: Last Vital Signs Temp 97.9 F 07/14/24 15:04 Pulse 70 07/14/24 15:04 Resp 16 07/14/24 15:04 BP 110/60 07/14/24 15:04 Pulse Ox 97 07/14/24 15:04 Oxygen Delivery Method Room Air 07/14/24 15:04 BMI result Body Mass Index 25.3 Tobacco/Smoking Status: Tobacco use Status Tobacco use date assessed 08/22/23 07/14/24 15:07 Patient Tobacco Use Status Current everyday Tobacco 07/14/24 15:07 Tobacco use type Smokeless Tobacco 07/14/24 15:07 e-Cigarette/Vaping Use Currently Using 07/14/24 15:07 Thrive Assessment: Date of Thrive Assessment Date Thrive assessed 03/05/24 07/14/24 15:07 Const General: well developed; No acute distress Nutritional Appearance: well nourished Orientation/consciousness: patient oriented x3 HENMT Head: Yes normocephalic and Yes atraumatic Eyes General: appearance normal, both eyes and all related structures Pupils: Equal, round and reactive pupils present EOM: EOMs intact bilaterally Resp Effort & Inspection: normal respiratory effort Neuro General: patient oriented x3 and gait normal Cranial nerves: Yes Equal, round and reactive pupils present Psych Affect: normal affect Coding Level of Care Code Est Pt Level 3 (49105) Diagnoses Essential hypertension I10 Assessment & Plan Assessment & Plan (1) Essential hypertension: Code(s): I10 - Essential (primary) hypertension Category: Medical Plan: Blood?pressure?appears?well?controlled.??Goal?is?less?than?140/90 Blood?pressures?had?been?too?low.??She?has?log?of?her?blood? pressures?from?home?and?these?look?okay?as?well. Hydrate?well Continue?current?medication?regimen Orders: Orders Comprehensive [place]. Panel Fast Today Z00.00 - Encounter for general adult medical examination without abnormal findings Lipid Panel Today Z00.00 - Encounter for general adult medical examination without abnormal findings Microalbumin, Random (w Creat) Today I10 - Essential (primary) hypertension Complete Blood Count Auto Diff Today Z00.00 - Encounter for general adult medical examination without abnormal findings Free T4 (Free Thyroxine) Today E03.9 - Hypothyroidism, unspecified Thyroid Stimulating Hormone Today E03.9 - Hypothyroidism, unspecified Triiodothyronine T3 Total Today E03.9 - Hypothyroidism, unspecified UA CC w/rflx Micro + Cult Today Z00.00 - Encounter for general adult medical examination without abnormal findings
[2024-07-14 15:04] VITALS: BP 110/60; PULSE 70; RESP 16; TEMP 36.6; O2SAT 97; BMI 25.3
== END 2024-07-14 15:15 | disposition home or self-care (01) ==
LOC: HO.HMCFM 14:59
PROVIDERS: PCP Family Medicine; Visit Provider Family Medicine
DX: I10 Essential (primary) hypertension (principal)

== ENCOUNTER → 2024-07-14 14:59 | Outpatient (BNVA) | payer MEDICARE, SELFPAY | PROVIDERS: PCP Family Medicine; Visit Provider Family Medicine | DX: I10 Essential (primary) hypertension (principal) | CPT/HCPCS: 99212 ==

== ENCOUNTER 2024-11-28 14:45 | Outpatient (REF) | payer MEDICARE, SELFPAY ==
[2024-11-28 15:02] LABS: MANUAL DIFF FLAG NO
[2024-11-28 15:17] LABS: Hematocrit 38.7 % (37.0-47.0); Hemoglobin 12.8 g/dl (12.0-16.0); Imm Gran Abs Auto 0.01 X10*3/uL (0.00-0.03); Imm Gran Pct Auto 0.2 % (0.0-0.4); Lymphocytes Absolute Auto 3.3 X10*3/uL (1.2-4.9); Mean Corpuscular HGB Conc 33.1 g/dl (31.0-35.0); Mean Corpuscular Hemoglobin 28.7 pg (27.0-33.0); Mean Corpuscular Volume 86.8 fL (80.0-98.0); NRBC Abs Auto 0.000 X10*3/uL (0.0-0.012); NRBC Pct Auto 0.0 /100WBC (0.0-0.2); Platelet Count 286 X10*3/uL (160-400); Red Blood Count 4.46 X10*6/uL (4.20-5.50); White Blood Count 6.0 X10*3/uL (4.8-10.8)
[2024-11-28 15:54] LABS: Appearance Urine Clear; Glucose Urine UA Negative (Negative); PH 6.0 (5.0-9.0); Specific Gravity - Urine >= 1.030 (1.005-1.025)
[2024-11-28 15:57] LABS: Alanine Aminotransferase 20 U/L (0-31); Albumin Level 4.7 g/dL (3.5-5.0); Alkaline Phosphatase 85 U/L (39-117); Anion Gap 12 (12-20); Aspartate Amino Transferase 25 U/L (5-31); Blood Urea Nitrogen 18 mg/dL (9-16); Calcium 9.3 mg/dL (8.4-10.2); Carbon Dioxide 24 mmol/L (22-29); Chloride 108 mmol/L (96-108); Cholesterol 194 mg/dL (<200); Estimated Glomerular Filt Rate 46; Free T4 (Free Thyroxine) 1.05 ng/dL (0.71-1.85); HDL Cholesterol 68 mg/dL (>40); Potassium 4.3 mmol/L (3.3-5.1); Sodium 140 mmol/L (135-145); Thyroid Stimulating Hormone 9.66 uIU/mL (0.32-4.0); Total Protein 7.5 g/dL (6.5-8.0); Triglycerides 79 mg/dL (<150)
[2024-11-28 16:16] LABS: Microalbum/Creatinine Ratio Ur 3.8 ug/mg cr (<30)
== END 2024-11-28 14:46 | disposition home or self-care (01) ==
LOC: HO.LAB 14:45
PROVIDERS: PCP Family Medicine; Visit Provider Family Medicine
DX: Z00.00 Encounter for general adult medical examination without abnormal findings (principal); E03.9 Hypothyroidism, unspecified; I10 Essential (primary) hypertension
CPT/HCPCS: 36415; 80053; 80061; 81003; 82043; 82570; 84439; 84443; 84480; 85025

== ENCOUNTER 2024-12-01 12:01 | Outpatient (AMB) | payer MEDICARE, SELFPAY ==
--- NOTE | 2024-12-01 12:09 | AM.OFFVISMDC ---
Intake Vital Signs 12/01/24 12:25 Height 5 ft 6 in Weight 158 lb BMI 25.5 BP 122/72 Blood Pressure Location Lt brachial Position Sitting Respiration 12 Pulse 71 Pulse Source Pulse Oximeter Temp 97.1 F Temp Source Oral Pulse Oximetry (%) 98 Oxygen Delivery Method Room Air Intake Visit Reasons: AWV Intake Note: Medical Wellness visit Urogynaecologist Required: No Allergies aspirin (ASA) Allergy (Severe, Verified 12/01/24 12:13) Swelling, facial Seasonal Allergies Allergy (Severe, Verified 12/01/24 12:13) Unknown TREE POLLEN Allergy (Intermediate, Uncoded 12/01/24 12:13) Nasal congestion Medication List - Last Reconciled 12/01/24 by Loreta Pandya, HIGH SCHOOL LEARNING SUPPORT TEACHER- acetaminophen ER (Tylenol 8 Hour) 650 mg PO Q8H PRN albuterol sulfate 90 mcg/actuation 2 puffs inhalation Q4-6H PRN 1 month amlodipine 2.5 mg PO DAILY 90 days atorvastatin 10 mg PO BEDTIME [address]-ER 6 mg (2 x 3 mg) PO DAILY 30 days Held on 02/15/24. Instructions: Doctor's Order cholecalciferol (vitamin D3) 500 mcg PO DAILY desonide 0.05% 1 appl topical BID-QID PRN hydroxyzine HCl 25 mg PO BID PRN 30 days melatonin 5 mg PO BEDTIME PRN 30 days sertraline (Zoloft) 150 mg (1.5 x 100 mg) PO DAILY 30 days sucralfate (Carafate) 1 g PO .qhs trazodone 50 - 100 mg (1 - 2 x 50 mg) PO BEDTIME PRN 30 days vitamin K2 100 mcg PO DAILY HPI HPI Comments History of Present Illness Details Here today for AWV. The Medicare Annual Wellness Visit (AWV) is a yearly appointment with a health professional to identify health risks and help reduce them and to create or update a personalized prevention plan. During a Medicare AWV, health professionals should also review any current opioid prescriptions, detect any cognitive impairment, and establish or update medical and family history. 69-year-old female with hyperlipidemia, osteoporosis, hypothyroidism, major depressive disorder, mild persistent asthma, anemia, tubular adenoma of the colon, generalized anxiety disorder, hypertension, ETOH dependence in remission since 2020, seasonal allergies/environmental allergies, CKD3, LBBB SurgHx: Y FHx: Y SocHx: Y Health Maintenance: See scanned preventative medicine assessment with personalized health plan and screening schedule. Colon: 11/2023 at [facility] [place] Mammo 01/2024 DEXA 01/2024 osteopenia PAP would like to have a screen, + menopause, denies family hx of CHEMICAL PROCESS EQUIPMENT OPERATOR cancer. Referral to CHEMICAL PROCESS EQUIPMENT OPERATOR Vaccines Flu 12/01/24, PCV UTD, Tdap 2016, Shingles had 1 needs to complete series AAA screen NA EKG: done today LBBB (not new) Labs: 11/28/24 Cr 1.17, eGFR 46, LDL 111, TSH 9.66, [place] of Care: as documented in chart Visual Acuity: not active w/ Optho,has referral, has recurrent stye. [facility] Hearing Screening: ears feel blocked at times, uses debrox PRN, no hearing aides ACP: does not have, forms provided today MOLST HCP and 5 wishes Dietary/Nutrition/Exercise Edu provided: Y During the course of the visit the patient was educated and counseled about appropriate screening and preventative services. Patient instructions were provided to the patient in written or electronic format. I have reviewed and verified the above information. History of Present Illness The patient is a 69-year-old female presenting for an annual Medicare wellness visit. Essential Hypertension/CKD - The patient has a history of hypertension, previously treated with amlodipine and lisinopril, which were adjusted due to low blood pressure readings. - She reports that she is currently only taking amlodipine 2.5 mg and has stopped taking lisinopril. - Home blood pressure monitoring shows readings are not bad, mostly ranging from 110s to 130s systolic, with one reading in the 140s. - eGFR stable Hypothyroidism: - The patient has a history of hypothyroidism for which she takes levothyroxine. - Her dose was lowered to 88 mcg about a year ago. - Recent lab results from the of this month showed an elevated thyroid level, indicating her condition is undertreated. - She confirms she has been taking her medication, and believes a new prescription for 100 mcg was sent in today, in response to her recent lab results. She has not started yet. But will. Hyperlipidemia: - The patient has a history of hyperlipidemia and reports adherence to her atorvastatin prescription. - Recent blood work indicated that her LDL cholesterol was high, which is thought to be secondary to her uncontrolled hypothyroidism. Osteopenia: - The patient has a history of osteoporosis, but her most recent bone density scan in 2023 showed osteopenia. - She takes a vitamin D supplement. Anxiety and Depression: - The patient has a history of anxiety and depression, managed with sertraline 150 mg daily. Insomnia: - For insomnia, the patient uses melatonin and also takes trazodone. Alcohol abuse: - The patient has a history of current alcohol abuse. Bilateral Thumb Pain: - The patient complains of thumb pain when grabbing objects. Described as trigger, worse on L then R. Ear Blockage L - The patient reports that her ears sometimes feel blocked. - She recently had a head cold with symptoms localized to the left side, including ear leakage and dryness, for which she uses a prescribed ointment which works great. Past Medical History - Hyperlipidemia, treated with atorvastatin. - Hypothyroidism, treated with levothyroxine. - Hypertension, with a history of low blood pressure readings leading to medication adjustments. - Anxiety and depression, treated with sertraline 150 mg daily. - Current alcohol abuse. - Insomnia, treated with melatonin and trazodone. - Osteoporosis, with a 2023 bone density scan showing osteopenia, treated with vitamin D supplements. - Patient has discontinued Carafate. - Patient uses vaginal estrogen. - Recent head cold. Past Surgical History - No new surgeries since last visit. Family History - No changes in family medical history reported since the last visit. Social History - Substance Use: Reports current alcohol abuse. Health Maintenance - Colonoscopy: UTD - Mammogram: Scheduled for January 2024. - Bone Density Scan: Most recent scan was in 2023 and showed osteopenia. - Influenza Vaccine: Patient agreed to and will receive the flu shot during today's visit. - Shingles Vaccine: The patient has only received one dose and was advised to complete the series by getting the second dose at a pharmacy when she feels fully recovered. - Eye Exam: A referral was placed last year, but the patient did not follow up. A new referral will be placed for an eye exam, with staff assistance for scheduling. - Advance Care Planning: The patient was previously given Health Care Proxy and MOLST forms but has not completed them; she was provided with new copies and encouraged to complete them. Review of Systems - Constitutional: Reports recovering from a recent wicked head cold that began last Sunday. - HEENT: Reports intermittent ear blockage. Reports recent left-sided ear leakage and dryness associated with a cold, which is improving with a prescribed ointment. - Musculoskeletal: Reports pain in thumbs when grabbing objects. Physical Exam General: Well developed, well nourished, in no acute distress. Appears stated age. Head: Normocephalic, atraumatic. Eyes: Pupils are equal, round and reactive to light and accommodation. Conjunctivae are clear. Scleras nonicteric bilat. Chronic stye L eye Ears: TMs clear Right, EACS WNL. external eczema L ear; TM + erythema and mild clouding on L only Lungs: Clear to auscultation bilaterally. No rales, rhonchi or wheeze noted. Good air flow in all calvert. Heart: Regular rate and rhythm. No murmurs, click, rubs or gallops are noted. Pulses: Peripheral pulses are equal and palpable bilaterally. Extremities: No clubbing, cyanosis nor edema is noted. Trigger thumb bilat, worse on L Psych: Normal eye contact, affect and mood appropriate, and normal interactions. Medical Decision Making The patient is a 69-year-old female here for her annual Medicare wellness visit with medication management and review of health maintenance. Her hypertension appears to be well-controlled on amlodipine 2.5 mg monotherapy, as supported by her home blood pressure logs, and lisinopril will remain discontinued. Her lab work reveals uncontrolled hypothyroidism, with an elevated TSH. This is likely the cause of her elevated LDL cholesterol. Her other provider, Dr. Nelson, has already increased her levothyroxine dose to 100 mcg in response to these results, which she has just received and will begin taking. We will recheck her thyroid levels in 6 weeks to ensure they are normalizing. For her new complaint of bilateral thumb pain, she will be referred to occupational therapy, with a contingent referral to a hand specialist if there is no improvement. Regarding health maintenance, she will receive her influenza vaccine today, and she was counseled to complete her shingles vaccine series. A new referral will be placed for an eye exam, and she is encouraged to complete her advance directive forms (Health Care Proxy and MOLST), which were provided again. Follow-up will be in approximately three months to maintain continuity of care consistent with Dr. Wise's schedule. Plan 1. Essential Hypertension - Patient's home blood pressure readings are well-controlled on her current regimen. - Continue amlodipine 2.5 mg daily. - Discontinue lisinopril, as the patient is not currently taking it and her blood pressure is controlled without it. 2. Hypothyroidism - Recent labs showed an elevated TSH, indicating uncontrolled hypothyroidism. - The patient was advised to start the new prescription of levothyroxine 100 mcg daily, which was recently sent by Dr. Nelson. - Ordered repeat, non-fasting thyroid labs to be done in 6 weeks to monitor response to the dose change. 3. Bilateral Thumb Pain - A referral will be placed for occupational therapy to address thumb pain. - A referral to a hand specialist will be made if occupational therapy does not resolve the issue. 4. Preventative Care - Administer influenza vaccine today in office. - Advised patient to complete the two-dose shingles vaccine series; she should get the second shot at a pharmacy once she feels 100% recovered from her recent cold. - Place a new referral for an eye exam; office staff will assist the patient in scheduling an appointment. - Patient to schedule a colonoscopy with a blueprint assembler. - Provided patient with Health Care Proxy and MOLST forms and encouraged completion. - Follow up in office in 3 months. Patient Instructions - You will receive your flu shot today before you leave the office. - Start taking your new thyroid medication, levothyroxine 100 mcg, as prescribed. Your recent blood tests showed your thyroid level was off. - In about 6 weeks, please go to the lab for a follow-up blood test to check your thyroid levels. You do not need to be fasting for this test. - Continue taking your amlodipine 2.5 mg for blood pressure. Do not restart the lisinopril medication. - We are placing a referral for you to see an occupational therapist for your thumb pain. They will call you to set up an appointment. - We are also placing a new referral for an eye doctor. Our staff will help you make an appointment and will mail you the details. - Please get the second dose of your shingles vaccine at a local pharmacy. Wait until you feel completely better from your recent cold before getting it. - Please schedule an appointment with a blueprint assembler (a specialist for stomach and intestines) to have a colonoscopy. - Please review the Health Care Proxy and MOLST forms we gave you. It is important to think about these decisions while you are well. - If the ointment for your ears isn't helping, please call our office. - Please schedule a follow-up appointment in our office in about 3 months. Consent Patient was informed and verbally consented to the use of an ambient scribe for clinic note documentation during this visit. An additional 20 minutes was spent addressing the problem(s) noted at todays visit. This includes time spent before the visit reviewing the chart, time spent during the visit, and time spent after the visit on documentation reviewing laboratory results, diagnostic imaging, medications, performing a medically necessary evaluation, counseling on diagnoses, care coordination, ordering appropriate tests, ordering appropriate medications, review of tests performed by other providers, reporting test results with the patient, communication with other healthcare providers. [facility] Medical History (Updated 12/01/24 @ 12:48 by Loreta Pandya [facility]) Abdominal pain Abnormal x-ray Abnormal x-ray of bone Adult general medical exam Alcohol dependence Annual physical exam Anxiety and depression COPD (chronic obstructive pulmonary disease) Fall H/O heartburn History of colon polyps HTN (hypertension) Hx of thyroid disease Immunization counseling Left foot pain Left knee pain Left shoulder pain Left wrist pain Lower extremity weakness Neck pain on right side Physical deconditioning Postprandial diarrhea Pre-op examination Rectal bleeding Right anterior shoulder pain Screening for breast cancer Screening for cervical cancer Screening for colon cancer Screening for osteoporosis Shoulder pain Stye Toe pain, right Upper abdominal pain Upper back pain Wears dentures Surgical History History of orbit decompression History of palate surgery Hx of arthroscopic knee surgery Hx of colonoscopy Family History Mother No problems noted. Father No problems noted. Other Substance use disorder Social History Household Members: Family Housing: House Are you a primary senior care provider to a significant other at home: No Do you presently have visiting nurse or other home services: No Alcohol intake: current Alcohol intake frequency: former alcohol drinker Alcohol type: wine Patient Tobacco Use Status: Current everyday Tobacco user Tobacco use type: Smokeless Tobacco e-Cigarette/Vaping Use: Currently Using Second Hand Smoke Exposure: No service: No Current occupational status: retired Current occupational exposures/hazards: No Cognitive needs: No Hearing needs: No Vision needs: Yes Questionnaire Medicare Wellness Checkup [age] What gender do you identify with?: female During the past 4 weeks, how much have you been bothered by emotional problems such as feeling anxious, depressed, irritable, sad or downhearted, and blue?: slightly During the past 4 weeks, has your physical & emotional health limited your social activities with family, friends, neighbors, or groups?: not at all During the past 4 weeks, how much bodily pain have you generally had?: no pain During the past 4 weeks, was someone available to help you if you needed & wanted help?: yes, as much as I wanted During the past 4 weeks, what was the hardest physical activity you could do for at least 2 minutes?: light Can you get to places out of walking distance without help? (For eg., can you travel alone on buses, taxis or drive your car?): Yes Can you go shopping for groceries or clothes without someone's help?: Yes Can you prepare your own meals?: Yes Can you do your housework without help?: Yes Because of any health problems, do you need the help of another person with your personal care needs such as eating, bathing, dressing or getting around the house?: No Can you handle your own money without help?: Yes During the past 4 weeks, how would you rate your health in general?: good During the past 4 weeks how have things been going for you?: pretty well Are you having difficulties driving your car?: no Do you always fasten your seat belt when you are in a car?: yes, usually During past 4 weeks, have you been bothered by the following: never: Falling or dizzy when standing up, Sexual problems?, Trouble eating well?, Problems using the telephone? and Tiredness or fatigue? and always: Teeth or denture problems? (needs extractions, trouble chewing. Recommended to fu with Dentist/oral surgeon that works w her insurance ) Have you fallen 2 or more times in the past year?: No Are you afraid of falling?: No Are you a smoker?: no During the past 4 weeks, how many drinks of wine, beer, or other alcoholic beverages did you have?: no alcohol at all Do you exercise for about 20 minutes 3 or more times a week?: no, I usually do not exercise this much Have you been given information to help with the following?: no: Hazards in your house that might hurt you? and no: Keeping track of your medications? How often do you have trouble taking medicines the way you have been told to take them?: I always take medicine as prescribed How confident are you that you can control & manage most of your health problems?: very confident What is your race?: White Activity of Daily Living Bathing - sponge bath, tub bath or shower: receives no assistance (gets in/out by self, if usual bathing means Dressing - getting clothes from closets & drawers, including inner/outer garments & fasteners.: gets clothes & gets completely dressed without help Toileting - going to the 'toilet room' for urine/bowel elimination & cleaning self/arranging clothes: goes to toilet room, cleans self, arranges clothes without help Transfer: moves in & out of bed and chair without help (may use support object) Continence: controls urination/bowel movements completely by self Feeding: feeds self without help Total Score: 0 Information obtained from: patient Using telephone: independent Traveling: independent Shopping: independent Preparing meals: independent Housework: independent Taking medicine: independent Managing money: independent PHQ-9 Over the last 2 weeks, how often have you been bothered by any of the following problems? 1. Little interest or pleasure in doing things: several days 2. Feeling down, depressed, or hopeless: several days 3. Trouble falling or staying asleep, or sleeping too much: several days 4. Feeling tired or having little energy: several days 5. Poor appetite or overeating: several days 6. Feeling bad about yourself - or that you are a failure or have let yourself or your family down: several days 7. Trouble concentrating on things, such as reading the newspaper or watching television: not at all 8. Moving or speaking so slowly that other people could have noticed. Or the opposite - being so fidgety or restless that you have been moving around a lot more than usual: not at all 9. Thoughts that you would be better off or of hurting yourself in some way: not at all Total score: 6 Depression Screening Interpretation: Positive Depression Screening Follow-up: Existing condition Depression Screening Done: Yes 69679 - PHQ-9 Billing: Yes Source: Developed by Drs. Juan Pablo Ramírez, Kari Richards, Morgan Alanis and colleagues, with an educational dahiana from [employer]. Physical Exam Vital Signs: Last Vital Signs Temp 97.1 F 12/01/24 12:25 Pulse 71 12/01/24 12:25 Resp 12 12/01/24 12:25 BP 122/72 12/01/24 12:25 Pulse Ox 98 12/01/24 12:25 Oxygen Delivery Method Room Air 12/01/24 12:25 BMI result Body Mass Index 25.5 Office Procedures Vision Screening Right Eye: 20/20 Left Eye: 20/50 Bilateral: 20/40 59897 - Vision Screening EKG 10523-[id number], Complete Flu Questionnaire Does the patient have a severe egg allergy?: No Does the patient have severe life threatening allergies?: No Does the patient have a fever or illness today?: No Has the patient ever had Guillain-[place] Syndrome?: No Has the patient ever had any past reaction to a flu shot?: No Vision Screening 85755 - Vision Screening Results AMB Hemoglobin A1c AMB Hemoglobin A1c 5.6 % Last Edit by Emi Crisostomo CMA on 12/01/24 12:38 Immunizations Fluarix [id number] (PF) 45 mcg (15 mcg x 3)/0.5 mL IM syringe Performing Provider: JESSA Camargo Performing Location: [facility] [place] Family Medicine Administered by: Cassie Adamson MA on 12/01/24 12:59 Dose Route Admin Location Dispensed Lot Number Expiration Date NDC Mannequin Mounter 0.5 mL IM Right Deltoid 0.5 mL [id number] 08/04/25 [id number] [employer] VIS Given Date VIS Provided VIS Publication Date 12/01/24 Single Vaccine 24 Eligibility Eligibility Date Funding Source Not C Eligible 12/01/24 Private Results Reviewed Results Reviewed: Laboratory Last Values Hgb A1c (Clinic) 5.6 % (4.0-6.0) 12/01/24 12:36 Assessment & Plan Assessment & Plan (1) Encounter for subsequent annual wellness visit (AWV) in Medicare patient: Onset Date: ~12/01/24 Code(s): Z00.00 - Encounter for general adult medical examination without abnormal findings (2) CKD (chronic kidney disease) stage 3, GFR 30-59 ml/min: Code(s): N18.30 - Chronic kidney disease, stage 3 unspecified Qualifiers: Chronic kidney disease stage 3 subtype: stage 3a (GFR 45-59) Qualified Code(s): N18.31 - Chronic kidney disease, stage 3a (3) LBBB (left bundle branch block): Code(s): I44.7 - Left bundle-branch block, unspecified (4) Essential hypertension: Code(s): I10 - Essential (primary) hypertension (5) Hypothyroidism: Code(s): E03.9 - Hypothyroidism, unspecified Qualifiers: Hypothyroidism type: unspecified Qualified Code(s): E03.9 - Hypothyroidism, unspecified (6) Elevated fasting blood sugar: Code(s): R73.01 - Impaired fasting glucose (7) Influenza vaccination administered at current visit: Onset Date: ~12/01/24 Code(s): Z23 - Encounter for immunization (8) Stye: Comment: recurrent Code(s): H00.019 - Hordeolum externum unspecified eye, unspecified eyelid Qualifiers: Eyelid: upper Laterality: left Qualified Code(s): H00.014 - Hordeolum externum left upper eyelid (9) Blurred vision: Code(s): H53.8 - Other visual disturbances (10) Osteopenia: Code(s): M85.80 - Other specified disorders of bone density and structure, unspecified site Qualifiers: Osteopenia location: unspecified Qualified Code(s): M85.80 - Other specified disorders of bone density and structure, unspecified site (11) Eczema of both external ears: Code(s): H60.543 - Acute eczematoid otitis externa, bilateral (12) ACP (advance care planning): Code(s): Z71.89 - Other specified counseling (13) Trigger thumb of both hands: Code(s): M65.311 - Trigger thumb, right thumb; M65.312 - Trigger thumb, left thumb Plan . Orders: Orders TSH reflex Free T4 6 Weeks E03.9 - Hypothyroidism, unspecified AMB Hemoglobin A1c Today R73.01 - Impaired fasting glucose, Z00.00 - Encounter for general adult medical examination without abnormal findings AMB Vision Screening Today Z00.00 - Encounter for general adult medical examination without abnormal findings OT Evaluation and Treatment Today M65.311 - Trigger thumb, right thumb, M65.312 - Trigger thumb, left thumb Influenza [id number] Immunization Today Z23 - Encounter for immunization Referrals Ophthalmology Referral H00.014 - Hordeolum externum left upper eyelid, H53.8 - Other visual disturbances Hand Surgery Referral M65.311 - Trigger thumb, right thumb, M65.312 - Trigger thumb, left thumb Medications: Refilled levothyroxine 100 mcg PO DAILY 30 tabs 2RF 30 days desonide 0.05% 1 appl topical BID-QID PRN 60 grams 0RF itching Discontinued lisinopril Discontinued Reason: Doctor's Order 40 mg PO DAILY 90 days 90 tabs 1RF On Hold sucralfate (Carafate) Hold Comment: pt not taking 1 g PO .qhs 30 tabs 6RF R19.7 - Diarrhea, unspecified Patient Instructions: Health screenings for women You should visit your health care provider from time to time, even if you are healthy. The purpose of these visits is to: Screen for medical issues Assess your risk for future medical problems Encourage a healthy lifestyle Update vaccinations and other preventive care services Help you get to know your provider in case of an illness Information Even if you feel fine, you should still see your provider for regular checkups. These visits can help you avoid problems in the future. For example, the only way to find out if you have high blood pressure is to have it checked regularly. High blood sugar and high cholesterol levels also may not have any symptoms in the early stages. A simple blood test can check for these conditions. There are specific times when you should see your provider or receive specific health screenings. The [place] Preventive Services Task Force publishes a list of recommended screenings. Below are screening guidelines for women ages 18 to 39. BLOOD PRESSURE SCREENING Your blood pressure should be checked at least once every 3 to 5 years if: Your blood pressure is in the normal range (top number less than 120 mm Hg and bottom number less than 80 mm Hg) You don't have risk factors for high blood pressure Ask your provider if you need your blood pressure checked more often if: The top number is 120 to 129 mm Hg or the bottom number is 70 to 79 mm Hg You have diabetes, heart disease, kidney problems, are overweight, or have certain other health conditions You have a first-degree relative with high blood pressure You are Black You had high blood pressure during a If the top number is 130 mm Hg or greater or the bottom number is 80 mm Hg or greater, this is considered stage 1 hypertension. Schedule an appointment with your provider to learn how you can reduce your blood pressure. Watch for blood pressure screenings in your area. Ask your provider if you can stop in to have your blood pressure checked. BREAST CANCER SCREENING Experts do not agree about the benefits of breast self-exams in finding breast cancer or saving lives. Talk to your provider about what is best for you. A screening mammogram is not recommended for most women under age 40. Your provider may discuss and recommend mammograms, MRI scans, or ultrasounds if you have an increased risk for breast cancer, such as: A mother or sister who had breast cancer at a young age (most often starting screening earlier than the age the close relative was diagnosed) You carry a high-risk genetic marker CERVICAL CANCER SCREENING Cervical cancer screening should start at age 21 years unless your provider advises otherwise. After the first test: Women ages 21 through 29 should have a Pap test every 3 years. Exoprts do not agree on whether HPV testing is recommended for this age group. Women ages 30 through 65 should be screened with either a Pap test every 3 years or the HPV test every 5 years or both tests every 5 years (called cotesting ). Women who have been treated for precancer (cervical dysplasia) should continue to have Pap tests for 20 years after treatment or until age 65, whichever is longer. If you have had your uterus and cervix removed (total hysterectomy), and you have not been diagnosed with cervical cancer or precancer (high grade cervical neoplasia), you do not need cervical cancer screening. CHOLESTEROL SCREENING Cholesterol screening should begin at: Age 45 for women with no known risk factors for coronary heart disease Age 20 for women with known risk factors for coronary heart disease Repeat cholesterol screening should take place: Every 5 years for women with normal cholesterol levels More often if changes occur in lifestyle (including weight gain and diet) More often if you have diabetes, heart disease, kidney problems, or certain other conditions DIABETES SCREENING You should be screened for diabetes starting at age 35 and then repeated every 3 years if you have no risk factors for diabetes. Screening may need to start earlier and be repeated more often if you have other risk factors for diabetes, such as: You have a first degree relative with diabetes. You are overweight or have obesity. You have high blood pressure, prediabetes, or a history of heart disease. Screening for diabetes should be done if you are planning to become and you are overweight and have other risk factors such as high blood pressure. DENTAL EXAM Go to the dentist once or twice every year for an exam and cleaning. Your dentist will evaluate if you need more frequent visits. EYE EXAM Have an eye exam every 5 to 10 years before age 40. If you have vision problems, have an eye exam every 2 years or more often if recommended by your provider. You should have an eye exam that includes an examination of your retina (back of your eye) at least every year if you have diabetes. IMMUNIZATIONS Commonly needed vaccines include: Flu shot: get one every year. COVID-19 vaccine: ask your provider what is best for you. Tetanus-diphtheria and acellular pertussis (Tdap) vaccine: have one at or after age 19 as one of your tetanus-diphtheria vaccines if you did not receive it as an adolescent. Tetanus-diphtheria: have a booster (or Tdap) every 10 years. Varicella vaccine: receive 2 doses if you never had chickenpox or the varicella vaccine. Hepatitis B vaccine: receive 2, 3, or 4 doses, depending on your exact circumstances. Measles, mumps, and rubella (MMR) vaccine: receive 1 to 2 doses if you are not already immune to MMR. Your provider can tell you if you are immune. Ask your provider about the human papillomavirus (HPV) vaccine if: You have not received the HPV vaccine in the past You have not completed the full vaccine series (you should catch up on this shot) Ask your provider if you should receive other immunizations if you have certain health problems that increase your risk for some diseases such as pneumonia. INFECTIOUS DISEASE SCREENING Women who are sexually active should be screened for chlamydia and gonorrhea up until age 25. Women 25 years and older should be screened for chlamydia and gonorrhea if at high risk. Screening for hepatitis C: All adults ages 18 to 79 should get a one-time test for hepatitis C. people should be screened at every . Screening for human immunodeficiency virus (HIV): All people ages 15 to 65 should get a one-time test for HIV. Depending on your lifestyle and medical history, you may also need to be screened for infections such as syphilis and HIV, as well as other infections. PHYSICAL EXAM All adults should visit their provider from time to time, even if they are healthy. The purpose of these visits is to: Screen for disease Assess your risk of future medical problems Encourage a healthy lifestyle Update your vaccinations and other preventive care services Maintain a relationship with a provider in case of an illness Your height, weight, and BMI should be checked at every exam. During your exam, your provider may ask you about: Depression and anxiety Diet and exercise Alcohol and tobacco use Safety issues, such as using seat belts, smoke detectors, and intimate partner violence Your medicines and risk for interactions SKIN SELF-EXAM Your provider may check your skin for signs of skin cancer, especially if you're at high risk, such as if you: Have had skin cancer before Have close relatives with skin cancer Have a weakened immune system OTHER SCREENING Talk with your provider about colon cancer screening if you have a strong family history of colon cancer or polyps, or if you have had inflammatory bowel disease or polyps yourself. Routine bone density screening of women under 40 is not recommended. Quality Reporting (2020) Adult ([facility] 138//) Smoking risk assessment performed?: Yes Patient Tobacco Use Status: Current everyday Tobacco user Depression screening performed: Yes Screen Results: Yes Negative screen Recommended changes not done: EKG Patient refused: Yes Systolic BP not done?: No Diastolic BP not done?: No BMI screening not done: No Sexual Activity Screening ([facility] 153) Sexually active?: No Immunizations ([facility] 147, 117) Annual Influenza Vaccine: Yes Measles Antibody Test: No Mumps Antibody Test: No Rubella Antibody Test: No Varicella Antibody Test: No Anti Hepatitis A IgG Antigen test: No Anti Hepatitis B Virus Surface Ab test: No Fall Risk Screening ([facility] 139) Last assessed Fall Risk: 12/01/24 Fall risk assessment: No Falls in past year Dementia Assessment ([facility] 149) Cognitive assessment recorded: Yes (6 cit wnl ) Assessment of cognition with standardized tool: Yes Depression/Bipolar (159/160/161/177) PHQ-9: Total score: 6 Ophthalmol:Cataracts Visual Acuity (133) Visual acuity exam performed: Yes (see results ) Coding Level of Care Code Medicare Subsequent (G0439) Est Pt Level 3 (64677) Diagnoses Encounter for subsequent annual wellness visit (AWV) in Medicare patient Z00.00 Stage 3a chronic kidney disease N18.31 Chronic kidney disease stage 3 subtype: stage 3a (GFR 45-59) LBBB (left bundle branch block) I44.7 Essential hypertension I10 Hypothyroidism, unspecified type E03.9 Hypothyroidism type: unspecified Elevated fasting blood sugar R73.01 Influenza vaccination administered at current visit Z23 Hordeolum externum of left upper eyelid H00.014 Eyelid: upper Laterality: left Blurred vision H53.8 Osteopenia, unspecified location M85.80 Osteopenia location: unspecified 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 ACP (advance care planning) Z71.89 Trigger thumb of both hands M65.311; M65.312 CPT Codes Advance Care Planning - Time spent: 16-45 minutes ([id number]) Vision Screening - Vision Screenin - Vision Screening ([id number]) EKG - CPT: 72343-Uaoxvglixlwdtrfee, Complete ([id number]) Vision Screening - Vision Screenin - Vision Screening ([id number]) Additional Codes PHQ-9 - 91371 - PHQ-9 Billing: Yes ([id number]) Advance Care Planning Advance Care Planning discussion: Exists, not on file Date of discussion: 11/27/23 Who was present: self Forms completed: Health Care Proxy and MOLST Time spent: 16-45 minutes Actual minutes spent: 16
[2024-12-01 12:25] VITALS: BP 122/72; PULSE 71; RESP 12; TEMP 36.2; O2SAT 98; BMI 25.5
== END 2024-12-01 13:03 | disposition home or self-care (01) ==
LOC: HO.HMCFM 12:02
PROVIDERS: PCP Family Medicine; Visit Provider Nurse Practitioner Family
DX: Z00.00 Encounter for general adult medical examination without abnormal findings (principal); M65.312 Trigger thumb, left thumb; M65.311 Trigger thumb, right thumb; I12.9 Hypertensive chronic kidney disease with stage 1 through stage 4 chronic kidney disease, or unspecified chronic kidney disease; N18.31 Chronic kidney disease, stage 3a; I44.7 Left bundle-branch block, unspecified; E03.9 Hypothyroidism, unspecified; R73.01 Impaired fasting glucose; Z23 Encounter for immunization; H00.014 Hordeolum externum left upper eyelid; H53.8 Other visual disturbances; H60.543 Acute eczematoid otitis externa, bilateral

== ENCOUNTER → 2024-12-01 12:01 | Outpatient (BNVA) | payer MEDICARE, SELFPAY | PROVIDERS: PCP Family Medicine; Visit Provider Nurse Practitioner Family | DX: Z00.00 Encounter for general adult medical examination without abnormal findings (principal); I10 Essential (primary) hypertension; E03.9 Hypothyroidism, unspecified; Z23 Encounter for immunization; I44.7 Left bundle-branch block, unspecified; N18.31 Chronic kidney disease, stage 3a; R73.01 Impaired fasting glucose; H00.014 Hordeolum externum left upper eyelid; H53.8 Other visual disturbances; M85.80 Other specified disorders of bone density and structure, unspecified site; H60.543 Acute eczematoid otitis externa, bilateral; Z71.89 Other specified counseling; M65.311 Trigger thumb, right thumb; M65.312 Trigger thumb, left thumb | CPT/HCPCS: 83036; 90471; 90656; 93005; 96127; 99212; 99497 ==

== ENCOUNTER 2024-12-18 14:53 | Outpatient (AMB) | payer MEDICARE, SELFPAY ==
[2024-12-18 15:58] VITALS: BP 130/68; PULSE 75; TEMP 36.5; O2SAT 96; BMI 25.0
--- NOTE | 2024-12-18 15:58 | MHC.OFFWIV ---
Intake Vital Signs 12/18/24 15:58 Height 5 ft 6 in Weight 155 lb BMI 25.0 BP 130/68 Blood Pressure Location Lt brachial Position Sitting Pulse 75 Pulse Source Pulse Oximeter Temp 97.7 F Temp Source Oral Pulse Oximetry (%) 96 Oxygen Delivery Method Room Air Intake Visit Reasons: EP sore throat cough Intake Note: EP complains of sore throat and cough started four days ago. Patient Tobacco Use Status: Current everyday Tobacco user Allergies aspirin (ASA) Allergy (Severe, Verified 12/18/24 16:10) Swelling, facial Seasonal Allergies Allergy (Severe, Verified 12/18/24 16:10) Unknown TREE POLLEN Allergy (Intermediate, Uncoded 12/18/24 16:10) Nasal congestion Do you need a note to return to daycare/school/sports/work: No HPI HPI Comments History of Present Illness Details History - The patient is a 69-year-old female presenting with blisters on the lips, sore throat, and left ear discomfort. - The patient noticed blisters on her lips about 4 days ago. They appeared white without pus, and she tasted something clear , suggesting possible fluid inside. - The patient reported a sore throat with some redness observed in the throat. She denied having a fever or shortness of breath. - The patient experienced soreness in the left ear, with a history of chronic ear infections dating back to childhood. Review of Systems - Dermatological: Reports blisters on lips. - ENT: Reports sore throat and ear discomfort. Denies fever, shortness of breath, and wheezing. All systems reviewed and are unremarkable except as noted in HPI Physical Exam General: Cooperative, healthy appearing, comfortable and no acute distress Orientation/consciousness: Patient oriented x3 Limitations: No limitations Head: Normal to inspection Ears: Hearing grossly normal bilaterally, external ears normal, EAC's normal bilaterally, left TM with erythema and fluid. no TTP left mastoid bone. Nose: Normal external nose present, Normal nares present and No nasal discharge present Face and sinus: Normal facial exam and sinuses nontender Mouth: Normal oral and palatal mucosa present and moist mucous membranes Throat: tonsils normal, no exudates, uvula midline, posterior oropharynx erythema, possible green discoloration noted Eyes: Appearance normal, both eyes and all related structures Neck: Normal visual inspection, full ROM, no lymphadenopathy Respiratory: Clear to auscultation bilaterally. Normal respiratory effort, able to speak in complete sentences, not actively coughing, no respiratory distress, not tachypneic, no tripod positioning and no use of accessory muscles Cardiovascular: Regular rate and rhythm. Normal S1 and S2 Skin: No rashes or lesions noted Neuro: Patient oriented x3 Extremities: Normal to inspection and Yes no clubbing, cyanosis or edema PFSH Medical History (Updated 12/18/24 @ 16:27 by Kirsty León PA-C) Screening for breast cancer Left knee pain Lower extremity weakness Physical deconditioning Hx of thyroid disease Upper abdominal pain Shoulder pain Neck pain on right side Screening for cervical cancer Fall Upper back pain Alcohol dependence Pre-op examination Screening for osteoporosis Postprandial diarrhea Toe pain, right Abnormal x-ray Annual physical exam Right anterior shoulder pain Abnormal x-ray of bone Immunization counseling Abdominal pain Left foot pain Rectal bleeding Left shoulder pain Left wrist pain Screening for colon cancer Adult general medical exam Stye H/O heartburn Wears dentures Anxiety and depression HTN (hypertension) COPD (chronic obstructive pulmonary disease) History of colon polyps Surgical History Hx of arthroscopic knee surgery Hx of colonoscopy History of orbit decompression History of palate surgery Family History Mother No problems noted. Father No problems noted. Other Substance use disorder Social History Household Members: Family Housing: House Are you a primary progressive care manager to a significant other at home: No Do you presently have visiting nurse or other home services: No Alcohol intake: current Alcohol intake frequency: former alcohol drinker Alcohol type: wine Patient Tobacco Use Status: Current everyday Tobacco user Tobacco use type: Smokeless Tobacco e-Cigarette/Vaping Use: Currently Using Second Hand Smoke Exposure: No service: No Current occupational status: retired Current occupational exposures/hazards: No Cognitive needs: No Hearing needs: No Vision needs: Yes Physical Exam Vital Signs: Last Vital Signs Temp 97.7 F 12/18/24 15:58 Pulse 75 12/18/24 15:58 BP 130/68 12/18/24 15:58 Pulse Ox 96 12/18/24 15:58 Oxygen Delivery Method Room Air 12/18/24 15:58 BMI result Body Mass Index 25.0 Assessment & Plan Assessment & Plan (1) Otitis media: Code(s): H66.90 - Otitis media, unspecified, unspecified ear Qualifiers: Otitis media type: suppurative Chronicity: acute Laterality: left Spontaneous tympanic membrane rupture: without spontaneous rupture Recurrence: non-recurrent Qualified Code(s): H66.002 - Acute suppurative otitis media without spontaneous rupture of ear drum, left ear Plan: Plan Patient was informed and verbally consented to the use of an ambient scribe for clinic note documentation during this visit. - VSS, pt well appearing and PE unremarkable. - Flu, Covid, RSV testing sent. - Monitor for changes, symptomatic treatment advised. - Symptomatic treatment, monitor for fever or worsening symptoms. - Prescribed amoxicillin for five days to prevent/treat small infection, advised use of Flonase nasal spray to aid drainage. - Advised symptomatic treatment with [id number] medications, follow-up for test results. (2) URI, acute: Code(s): J06.9 - Acute upper respiratory infection, unspecified Plan: as above Orders: Orders SARS-CoV2/FLU/RSV Today R09.89 - Other specified symptoms and signs involving the circulatory and respiratory systems Medications: New amoxicillin 875 mg PO Q12H 10 tabs 0RF fluticasone propionate 50 mcg/actuation administer into each nostril 1 spray intranasal Q24H 48 grams 0RF 90 days Coding Level of Care Code Est Pt Level 3 (31060) Diagnoses Non-recurrent acute suppurative otitis media of left ear without spontaneous rupture of tympanic membrane H66.002 Otitis media type: suppurative Chronicity: acute Laterality: left Spontaneous tympanic membrane rupture: without spontaneous rupture Recurrence: non-recurrent URI, acute J06.9
== END 2024-12-18 16:28 | disposition home or self-care (01) ==
PROVIDERS: PCP Family Medicine; Visit Provider Physician Assistant
DX: H66.002 Acute suppurative otitis media without spontaneous rupture of ear drum, left ear (principal); J06.9 Acute upper respiratory infection, unspecified

== ENCOUNTER 2024-12-18 14:53 | Outpatient (REF) | payer MEDICARE, SELFPAY ==
[2024-12-19 11:22] LABS: Resp Syncy Virus RNA Qual PCR NEGATIVE (Negative); SARS COV2 PCR INHOUSE NEGATIVE (Negative)
== END 2024-12-18 14:54 | disposition home or self-care (01) ==
LOC: HO.LAB 14:53
PROVIDERS: PCP Family Medicine; Visit Provider Physician Assistant
DX: H66.002 Acute suppurative otitis media without spontaneous rupture of ear drum, left ear (principal); J06.9 Acute upper respiratory infection, unspecified; R09.89 Other specified symptoms and signs involving the circulatory and respiratory systems; F17.290 Nicotine dependence, other tobacco product, uncomplicated
CPT/HCPCS: 87637; 99212

== ENCOUNTER 2024-12-19 10:16 | Outpatient (REF) | payer MEDICARE, SELFPAY | END 2024-12-19 10:17 | disposition home or self-care (01) | LOC: HO.LNP 10:16 | PROVIDERS: Visit Provider Physician Assistant | DX: Z13.89 Encounter for screening for other disorder (principal) ==

== ENCOUNTER 2025-01-08 14:20 | Outpatient (REF) | payer MEDICARE, SELFPAY ==
[2025-01-08 16:00] LABS: Free T4 (Free Thyroxine) 1.32 ng/dL (0.71-1.85); Thyroid Stimulating Hormone 0.45 uIU/mL (0.32-4.0)
== END 2025-01-08 14:21 | disposition home or self-care (01) ==
LOC: HO.LAB 14:20
PROVIDERS: Absent Provider Nurse Practitioner Family; PCP Family Medicine; Visit Provider Family Medicine
DX: E03.9 Hypothyroidism, unspecified (principal)
CPT/HCPCS: 36415; 84439; 84443; 84480

== ENCOUNTER 2025-01-27 13:00 | Outpatient (REF) | payer MEDICARE, SELFPAY | END 2025-01-27 13:01 | LOC: HO.MAMMO 13:00 | PROVIDERS: PCP Family Medicine; Visit Provider Family Medicine | DX: Z12.31 Encounter for screening mammogram for malignant neoplasm of breast (principal) | CPT/HCPCS: 77063; 77067 ==

== ENCOUNTER → 2025-01-27 13:00 | Outpatient (BNV) | payer MEDICARE, SELFPAY | PROVIDERS: PCP Family Medicine; Visit Provider Radiology Body Imaging | DX: Z12.31 Encounter for screening mammogram for malignant neoplasm of breast (principal) | CPT/HCPCS: 77063; 77067 ==

== ENCOUNTER 2025-02-03 08:36 | Outpatient (AMB) | payer MEDICARE, SELFPAY ==
--- NOTE | 2025-02-03 08:40 | MHC.OFFVIS ---
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 Patient reports about 3 months ago her thumbs began clicking however, she feels like it has slowly resolved; Now occasionally affecting her left thumb. She has been experiencing bilateral hand cramping . She also complains of bilateral wrist soreness. She denies numbness or tingling. She is not taking any pain medication at this time. She denies previous injuries or surgeries to the hands. 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 Patient reports about 3 months ago her thumbs began clicking however, she feels like it has slowly resolved; Now occasionally affecting her left thumb. She has been experiencing bilateral hand cramping . She also complains of bilateral wrist soreness. She denies numbness or tingling. She is not taking any pain medication at this time. She denies previous injuries or surgeries to the hands. Patient states that what bothers her most is pain at the base of the right thumb moving into the wrist. [facility] Medical History (Updated 02/03/25 @ 16:14 by KIM Phoenix) Screening for breast cancer Left knee pain Lower extremity weakness Physical deconditioning Hx of thyroid disease Upper abdominal pain Shoulder pain Neck pain on right side Screening for cervical cancer Fall Upper back pain Alcohol dependence Pre-op examination Screening for osteoporosis Postprandial diarrhea Toe pain, right Abnormal x-ray Annual physical exam Right anterior shoulder pain Abnormal x-ray of bone Immunization counseling Abdominal pain Left foot pain Rectal bleeding Left shoulder pain Left wrist pain Screening for colon cancer Adult general medical exam Stye H/O heartburn Wears dentures Anxiety and depression HTN (hypertension) COPD (chronic obstructive pulmonary disease) History of colon polyps Surgical History Hx of arthroscopic knee surgery Hx of colonoscopy History of orbit decompression History of palate surgery Family History Mother No problems noted. Father No problems noted. Other Substance use disorder Social History (Updated 02/03/25 @ 08:45 by JUDITH Krueger) Household Members: Family Housing: House Are you a primary home care giver to a significant other at home: No Do you presently have visiting nurse or other home services: No Alcohol intake: former Patient Tobacco Use Status: Former Tobacco user Tobacco use type: Smokeless Tobacco e-Cigarette/Vaping Use: Currently Using Second Hand Smoke Exposure: No service: No Current occupational status: retired Current occupation: rt handed Current occupational exposures/hazards: No Cognitive needs: No Hearing needs: No Vision needs: Yes Physical Exam Vital Signs: BMI result Body Mass Index 25.0 Extrem Other: Patient is alert, oriented, and in no acute distress. Neuro: Normal sensation of the tips of all digits of the bilateral hand at this time Vascular: Cap refill brisk Pain: Positive CMC grind bilaterally, worst on the right Negative Sondra bilaterally No pain with range of motion of the right or left hands ROM: No visible or palpable locking and catching of bilateral hands Patient was able to make a closed fist and extend all digits of bilateral hands fully and without difficulty Skin: No lacerations or abrasions. General: No ecchymosis, erythema, or evidence of infection. Psych: Appears grossly normal Affect normal Attitude cooperative Office Procedures AMB Joint Injection/Aspiration Joint Injection/Aspiration Primary Site: Right Thumb Coding 10112 - Small Joint Procedure code (CPT) selection complete Results Reviewed Results Reviewed: X-rays obtained earlier this year of the right hand and wrist independently reviewed by me, Pepito Mayberry PA-C, demonstrate mild to moderate basal joint arthritis of the right wrist. Assessment & Plan Assessment & Plan (1) Arthritis of carpometacarpal (CMC) joint of right thumb: Code(s): M18.11 - Unilateral primary osteoarthritis of first carpometacarpal joint, right hand Category: Medical Plan 1. Basal joint arthritis of right thumb Patient was educated about condition Patient was educated about the treatment options available Patient would like to proceed with steroid injection at this time The risks and benefits of a steroid injection including but not limited to risk of damage to blood vessels, nerve, tendon, infection, skin bleaching, persistent or worsening pain, and failure to improve symptoms were discussed with the patient and they wish to proceed with the steroid injection. Once consent was obtained the skin over the dorsum of the right basal joint was sterilely prepped. The joint was then injected with a combination of 1 mL of (40 mg/ml} dexamethasone and 1% plain Lidocaine. The patient appears to have tolerated the procedure well and with no complications. He had good early relief before leaving clinic today. He knows that they may not have another steroid injection into this joint for least 4 months. Coding Level of Care Code Est Pt Level 3 (83044) Diagnoses Arthritis of carpometacarpal (CMC) joint of right thumb M18.11 CPT Codes Coding - 04225 - Small joint: 73528 - Small Joint ([id number])
[2025-02-03 08:41] VITALS: BMI 25.0
== END 2025-02-03 09:15 | disposition home or self-care (01) ==
PROVIDERS: PCP Family Medicine
DX: M18.11 Unilateral primary osteoarthritis of first carpometacarpal joint, right hand (principal)
CPT/HCPCS: 20600; 99203

== ENCOUNTER → 2025-02-03 08:36 | Outpatient (BNVA) | payer MEDICARE, SELFPAY | PROVIDERS: PCP Family Medicine | DX: M18.11 Unilateral primary osteoarthritis of first carpometacarpal joint, right hand (principal); M65.311 Trigger thumb, right thumb; M65.312 Trigger thumb, left thumb | CPT/HCPCS: 20600; 99202; J1100; J2003 ==